=== PATIENT | female | born 1945 | race Caucasian/White ===

== ENCOUNTER → 2016-07-29 | Outpatient (CLI) | payer MEDICARE, OTHER ==
--- NOTE | 2016-07-29 11:30 | XR ---
EXAM TYPE: LUMBAR SPINE X RAY SERIES COMPARISON: NONE HISTORY: Pain FINDINGS: Alignment is anatomic. The pedicles are intact. The transverse processes are intact. There is jac re degenerative disc disease with vacuum disc L5-S1. Grade 1 anterolisthesis of L4 on L5 noted. Facet arthropathy seen. Remaining levels demonstrate maintenance of disc space and vertebral body height. IMPRESSION: 1. Grade 1 anterolisthesis L4-L5. 2. Severe degenerative disc disease L5-S1.
--- NOTE | 2016-07-29 11:32 | XR ---
EXAMINATION TYPE: XR pelvis AP view DATE OF EXAM: 07/29/2016 11:26 AM COMPARISON: NONE HISTORY: Pain The osseous structures are intact. No acute fracture is seen. Visualized bowel gas pattern is nonsp ecific. Calcifications in pelvis appear vascular. Osteitis pubis condensans noted. Hypertrophic sutherland ge and arthropathy of the hip joints noted. SI joints symmetric. IMPRESSION: 1. No acute fracture. 2. 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
--- NOTE | 2016-07-29 11:34 | XR ---
EXAMINATION TYPE: XR cervical spine limited DATE OF EXAM: 07/29/2016 11:27 AM COMPARISON: NONE HISTORY: Pain 3 views are submitted. The odontoid is intact. There are no compression deformities. The prevertebral soft tissue structur es are within normal limits. Hypertrophic changes are seen at all levels. Moderate to severe degener ative disc disease C5-6 and C6-C7 with posterior spondylosis and facet arthropathy. Alignment is only demonstrated level C7. Mild degenerative disc disease C2-C3 and C3-C4 with moderate changes at C4-C5 IMPRESSION: 1. Multilevel moderate to severe degenerative disc disease.
== END | disposition home or self-care (01) ==
LOC: RADXRMAIN 10:33
PROVIDERS: ATTEND Chiropractor
DX: M43.16 Spondylolisthesis, lumbar region (principal); M51.37 Other intervertebral disc degeneration, lumbosacral region; M50.30 Other cervical disc degeneration, unspecified cervical region; M16.0 Bilateral primary osteoarthritis of hip
CPT/HCPCS: 72040; 72100; 72170

== ENCOUNTER → 2016-10-08 | Outpatient (CLI) | payer MEDICARE, OTHER ==
--- NOTE | 2016-10-08 08:22 | CT ---
EXAMINATION TYPE: CT brain wo con DATE OF EXAM: 10/08/2016 7:22 AM HISTORY: Memory loss for one year. Cognitive impairment per order. CT DLP: 1054.2 mGycm. Automated Exposure Control for Dose Reduction was Utilized. TECHNIQUE: CT scan of the head is performed without contrast. COMPARISON: None. FINDINGS: There is no acute intracranial hemorrhage or midline shift identified. There is diffuse v entricular and sulcal prominence consistent with diffuse age-related cerebral atrophy. There is incr eased extra-axial CSF prominence over bilateral frontal lobes felt to reflect chronic subdural hygrom as or more likely asymmetric frontal lobe atrophy. There is low-attenuation in the periventricular wh ite matter consistent with chronic small vessel ischemic change. Neither lenses well seen. There is m ild to moderate mucosal thickening involving bilateral ethmoid sinuses. There is dependent air-fluid level in left sphenoid sinus. IMPRESSION: No acute intracranial hemorrhage or midline shift. There is mild diffuse age-related ce rebral atrophy and chronic small vessel ischemic change noted. Asymmetric more moderate bilateral fr ontal lobe atrophy is noted.
== END | disposition home or self-care (01) ==
LOC: RADCTMAIN 06:54
PROVIDERS: ATTEND Internal Medicine
DX: I67.82 Cerebral ischemia (principal); G31.9 Degenerative disease of nervous system, unspecified; R41.89 Other symptoms and signs involving cognitive functions and awareness
CPT/HCPCS: 70450

== ENCOUNTER → 2021-09-09 | Outpatient (CLI) | payer MEDICARE ==
--- NOTE | 2021-09-09 19:36 | BD ---
EXAMINATION TYPE: Axial Bone Density DATE OF EXAM: 09/09/2021 COMPARISON: 12/04/2008 CLINICAL HISTORY: 75 years year old Female. ICD-10 CODE: M89.9 BONE DISORDER Height: 64.5 IN Weight: 236 LBS FRAX RISK QUESTIONS: Secondary Osteoporosis: 3. Menopause before 45: PARTIAL HYST AGE 37 RISK FACTORS HISTORY OF: Active: YES Diet low in dairy products/other sources of calcium: YES Postmenopausal woman: PARTIAL HYST AGE 37 MEDICATIONS: Additional Medications: CHOLESTEROL MEDS, BLOOD PRESSURE MEDS, POTASSIUM, WATER PILL, EXAM MEASUREMENTS: Bone mineral densitometry was performed using the NUVETA System. Bone mineral density as measured about the Lumbar spine is: ----- L1-L4(G/cm2): 1.235 T Score Values are as follows: ----- L1: -0.7 ----- L2: 0.3 ----- L3: 1.4 ----- L4: 0.6 ----- L1-L4: 0.5 Bone mineral density has: Increased 16.1% since study of: 12/04/2008 Bone mineral density about the R hip (g/cm2): 1.008 Bone mineral density about the L hip (g/cm2): 0.991 T Score values are as follows: -----R Neck: -0.2 -----L Neck: -0.3 -----R Total: 0.7 -----L Total: 0.9 Bone mineral density has: Decreased -8.9% since study of: 12/04/2008 FRAX%s: The graph provided illustrates a 7.2 chance for a major osteoporotic fx and a 0.9 chance for the hips probability for fx in 10 years time. IMPRESSION: Normal (Values between +1 and -1 indicate normal bone mass). Consider repeating this study in 5 year s or sooner if there is some new clinical indication. NOTE: T-SCORE=SD OF THE YOUNG ADULT MEAN.
--- NOTE | 2021-09-11 09:18 | MM ---
Reason for exam: screening (asymptomatic). Last mammogram was performed 4 years and 3 months ago. History: Patient is postmenopausal and had first child at age 33. Family history of breast cancer in aunt at age 70. Benign left mammotome panel of the left breast, July 11, 2013. Benign excisional biopsy of the left breast. Benign excisional biopsy of the right breast. Took estrogen for 3 years beginning at age 52. Physical Findings: A clinical breast exam by your physician is recommended on an annual basis and results should be correlated with mammographic findings. MG 3D Screening Mammo W/Cad Bilateral CC and MLO view(s) were taken. Prior study comparison: May 28, 2017, bilateral MG 3d diag mammo w/cad VAN. July 04, 2014, bilateral MG screening mammo w CAD. There are scattered fibroglandular densities. No significant changes when compared with prior studies. ASSESSMENT: Benign, BI-RAD 2 RECOMMENDATION: Routine screening mammogram of both breasts in 1 year.
== END | disposition home or self-care (01) ==
LOC: RADMAMWWP 09:51
PROVIDERS: ATTEND Internal Medicine
DX: Z12.31 Encounter for screening mammogram for malignant neoplasm of breast (principal); M89.9 Disorder of bone, unspecified
CPT/HCPCS: 77063; 77067; 77080

== ENCOUNTER → 2021-12-26 | Outpatient (CLI) | payer MEDICARE ==
--- NOTE | 2021-12-26 15:10 | XR ---
EXAMINATION TYPE: XR chest 2V DATE OF EXAM: 12/26/2021 COMPARISON: Chest x-ray 01/09/2015 HISTORY: R05.9 TECHNIQUE: Frontal and lateral views of the chest are obtained. FINDINGS: There is no focal air space opacity, pleural effusion, or pneumothorax seen. The cardiac silhouette size is within normal limits accounting for rotation, expiratory exam. The osseous struc tures are remarkable for post shoulder arthroplasty on the right, there is thoracic spondylosis, gray ent may be rotated. There are overlying artifacts. IMPRESSION: No acute cardiopulmonary process.
== END | disposition home or self-care (01) ==
LOC: RADXRMAIN 13:43
PROVIDERS: ATTEND Internal Medicine
DX: R05.9 Cough, unspecified (principal)
CPT/HCPCS: 71046

== ENCOUNTER → 2022-01-24 | Outpatient (CLI) | payer MEDICARE ==
--- NOTE | 2022-01-26 10:49 | CA ---
Transthoracic Echo Report Name: Nazia Lawler Age: 76 Gender: F : 1945 Exam Date: 01/24/2022 11:47 Exam Location: [place] [facility] Ht (in): 65 Wt (lb): 280 Ordering Physician: Andree Woodson MD Attending/Referring Phys: Physical Meteorologist Debra Li RDCS Procedure CPT: Indications: R60.0 lower extremity edema Cardiac Hx: Pt Has Dementia Technical Quality: Fair Contrast 1: Total Dose (mL): Contrast 2: Total Dose (mL): MEASUREMENTS (Male / Female) Normal Values 2D ECHO LV Diastolic Diameter PLAX 5.1 cm 4.2 - 5.9 / 3.9 - 5.3 cm LV Systolic Diameter PLAX 3.2 cm IVS Diastolic Thickness 1.0 cm 0.6 - 1.0 / 0.6 - 0.9 cm LVPW Diastolic Thickness 1.8 cm 0.6 - 1.0 / 0.6 - 0.9 cm LV Relative Wall Thickness 0.5 RV Internal Dim ED PLAX 2.9 cm M-MODE Aortic Root Diameter MM 3.0 cm LA Systolic Diameter MM 3.9 cm LA Ao Ratio MM 1.3 MV E Point Septal Separation 0.4 cm AV Cusp Separation MM 1.8 cm DOPPLER TR Peak Velocity 163.8 cm/s TR Peak Gradient 10.7 mmHg Right Ventricular Systolic Press 15.7 mmHg FINDINGS Left Ventricle Left ventricular ejection fraction is estimated at 50-55%. Mildly increased left ventricular wall thickness. Right Ventricle Normal right ventricular size and function. Right Atrium Normal right atrial size. Left Atrium Normal left atrial size. Mitral Valve Structurally normal mitral valve. Aortic Valve Aortic valve not well visualized. Tricuspid Valve Tricuspid valve not well visualized. Pulmonic Valve Pulmonic valve not well visualized. Pericardium Echo free space anterior to the right ventricle likely represents a fat pad. Aorta Aortic root and proximal ascending aorta not well visualized. CONCLUSIONS Technically very difficult study for interpretation. Probably normal left ventricular systolic function Poorly visualized intracardiac valves Previewed by: Dr. Damon Smiley MD (Electronically Signed) Final Date: 26 January 2022 10:48
== END | disposition home or self-care (01) ==
LOC: RADECHMAIN 11:34
PROVIDERS: ATTEND Internal Medicine
DX: R60.0 Localized edema (principal)
CPT/HCPCS: 93306

== ENCOUNTER 2022-03-14 13:17 | Emergency (ER) | payer MEDICARE ==
[2022-03-14 14:18] VITALS: BP 136/86; PULSE 71; RESP 18; TEMP 98
--- NOTE | 2022-03-14 14:49 | XR ---
EXAMINATION TYPE: XR chest 2V DATE OF EXAM: 03/14/2022 COMPARISON: Chest x-ray 12/26/2021 HISTORY: Congestion, cough TECHNIQUE: Frontal and lateral views of the chest are obtained. FINDINGS: There is no focal air space opacity, pleural effusion, or pneumothorax seen. The cardiac silhouette size is within normal limits. The osseous structures are stable, postop change noted to the right shoulder status post shoulder arthroplasty. The aorta is dense. There is eventration of the right hemidiaphragm. There are overlying artifacts. IMPRESSION: No acute cardiopulmonary process.
[2022-03-14] MEDS ORDERED: AZITHROMYCIN 500 MG TAB PO STA (17:06)
--- NOTE | 2022-03-14 17:10 | ED ---
URI HPI - General Chief Complaint: Upper Respiratory Infection Stated Complaint: Congestion Time Seen by Provider: 03/14/22 16:44 Source: patient Mode of arrival: ambulatory Limitations: altered mental status - History of Present Illness Initial Comments: Patient is a 76-year-old female with a past medical history of late stage dementia resents to the emergency department with a chief complaint of productive cough. helps provide history. States patient has had a productive cough for the past 2 weeks which has not gotten better. Sputum color unknown. Triage note reports congestion however and patient deny congestion. Patient has had intermittent fevers. Denies chest pain and shortness of breath. - Related Data Home Medications Medication Instructions Recorded Confirmed Amlodipine Besylate/Valsartan 1 each PO DAILY 06/28/14 01/09/15 [Exforge 5-160 mg Tablet] Atorvastatin [Lipitor] 40 mg PO HS 06/28/14 01/09/15 Celecoxib [CeleBREX] 200 mg PO BID 06/28/14 01/09/15 Cevimeline HCl [Evoxac] 30 mg PO TID 06/28/14 01/09/15 Esomeprazole Magnesium [NexIUM] 40 mg PO DAILY 06/28/14 01/09/15 Multivitamins, Thera [Multivitamin] 1 each PO DAILY 06/28/14 01/09/15 allopurinoL [Zyloprim] 300 mg PO DAILY 06/28/14 01/09/15 traMADol-ACETAMINOP 37.5-325MG 2 each PO Q4-6H PRN 06/28/14 01/09/15 [Ultracet] ALPRAZolam [Xanax] 0.25 mg PO TID PRN 01/09/15 01/09/15 Previous Rx's Medication Instructions Recorded Azithromycin [Zithromax Z Pack] 1 tab PO DIRECTED #6 tab 03/14/22 methylPREDNISolone Dose Pack 4 mg PO DIRECTED #21 tab 03/14/22 [Medrol Dose Pack] Allergies Allergy/AdvReac Type Severity Reaction Status Date / Time No Known Allergies Allergy Verified 03/14/22 14:18 Review of Systems ROS Statement: Those systems with pertinent positive or pertinent negative responses have been documented in the HPI. ROS Other: All systems not noted in ROS Statement are negative. Past Medical History Past Medical History: Dementia, GERD/Reflux, Hypertension, Pneumonia, Sleep Apnea/CPAP/BIPAP Additional Past Medical History / Comment(s): hx migraines,sjogrens,hx pneumonia, hx kidney stones History of Any Multi-Drug Resistant Organisms: None Reported Past Surgical History: Section, Cholecystectomy, Hysterectomy, Joint Replacement Additional Past Surgical History / Comment(s): ariana knee and rt shoulder replacement, cataracts, surgery on left thumb and wrist, Past Anesthesia/Blood Transfusion Reactions: Previous Problems w/ Anesthesia Additional Past Anesthesia/Blood Transfusion Reaction / Comment(s): "almost aspirated" Past Psychological History: Anxiety Past Alcohol Use History: None Reported Past Drug Use History: None Reported - Past Family History Father Family Medical History: Cancer Additional Family Medical History / Comment(s): colon cancer General Exam Limitations: altered mental status General appearance: alert, in no apparent distress Head exam: Present: atraumatic, normocephalic, normal inspection Eye exam: Present: normal appearance, PERRL, EOMI. Absent: scleral icterus, conjunctival injection, periorbital swelling ENT exam: Present: normal oropharynx Neck exam: Present: normal inspection, full ROM Respiratory exam: Present: normal lung sounds bilaterally. Absent: respiratory distress, wheezes, rales, rhonchi, stridor, chest wall tenderness, accessory muscle use, decreased breath sounds, prolonged expiratory Cardiovascular Exam: Present: regular rate, normal rhythm, normal heart sounds. Absent: systolic murmur, diastolic murmur, rubs, gallop, clicks Neurological exam: Present: alert, oriented X3, CN II-XII intact Psychiatric exam: Present: normal affect, normal mood Skin exam: Present: warm, dry, intact, normal color. Absent: rash Course Vital Signs 03/14/22 14:15 Temperature 98.0 F Pulse Rate 71 Respiratory 18 Rate Blood Pressure 136/86 O2 Sat by Pulse 96 Oximetry Medical Decision Making - Medical Decision Making This is a 76-year-old female who presents with productive cough. Vitals within normal limits. There is no hypoxia. Patient well-appearing. Lungs clear to auscultation bilaterally. Patient coughed several times during evaluation. Cough is productive. This is likely acute bronchitis of bacterial origin. Covid 19 and influenza are not detected. Patient will be discharged with Z-Igor and Medrol Dosepak. Strict return parameters discussed. Dr. Cannon is my attending. - Lab Data Lab Results 03/14/22 03/14/22 Range/Units 17:07 17:07 Coronavirus (PCR) Not Detected (Not Detectd) Influenza Type A RNA Not Detected (Not Detectd) Influenza Type B (PCR) Not Detected (Not Detectd) Disposition Clinical Impression: Acute bronchitis Disposition: HOME SELF-CARE Condition: Good Instructions (If sedation given, give patient instructions): Upper Respiratory Infection (ED), Acute Bronchitis (ED) Additional Instructions: Please take medication as directed. The antibiotic azithromycin will be started tomorrow. Please start the Medrol Dosepak today. Warm fluids, humidifiers, and hot showers or baths will help break mucus down. Follow-up with primary care provider in one to 2 days. Return to the emergency department if you experience new, concerning, or worsening symptoms. Prescriptions: methylPREDNISolone Dose Pack [Medrol Dose Pack] 4 mg PO DIRECTED #21 tab Azithromycin [Zithromax Z Pack] 1 tab PO DIRECTED #6 tab Is patient prescribed a controlled substance at d/c from ED?: No Referrals: None,Stated [Primary Care Provider] - 1-2 days Time of Disposition: 17:10
== END 2022-03-14 17:45 | disposition home or self-care (01) ==
LOC: EC 13:17
DX: J20.9 Acute bronchitis, unspecified (principal); K21.9 Gastro-esophageal reflux disease without esophagitis; I10 Essential (primary) hypertension; F41.9 Anxiety disorder, unspecified; Z79.899 Other long term (current) drug therapy; Z20.822 Contact with and (suspected) exposure to COVID-19
CPT/HCPCS: 71046; 87502; 87635; 99285

== ENCOUNTER → 2023-06-03 | Outpatient (CLI) | payer MEDICARE ==
--- NOTE | 2023-06-04 10:17 | CA ---
Transthoracic Echo Report Name: Nazia Lawler Age: 77 Gender: F : 1945 Exam Date: 06/03/2023 14:47 Exam Location: [place] [facility] Ht (in): 65 Wt (lb): 260 Ordering Physician: Erik Barahona MD Attending/Referring Phys: Erik Barahona MD Manager Corporate Strategy Tamra Ely [facility] Procedure CPT: Indications: R60.0 LOCALIZED EDEMA Cardiac Hx: Technical Quality: Very technically difficult study Contrast 1: Definity Total Dose (mL): 6 Contrast 2: Total Dose (mL): MEASUREMENTS (Male / Female) Normal Values 2D ECHO LV Diastolic Diameter PLAX 4.5 cm 4.2 - 5.9 / 3.9 - 5.3 cm LV Systolic Diameter PLAX 3.1 cm IVS Diastolic Thickness 1.0 cm 0.6 - 1.0 / 0.6 - 0.9 cm LVPW Diastolic Thickness 1.1 cm 0.6 - 1.0 / 0.6 - 0.9 cm LV Relative Wall Thickness 0.5 LVOT Diameter 2.0 cm Ascending Aorta Diameter 3.4 cm M-MODE Aortic Root Diameter MM 2.8 cm LA Systolic Diameter MM 3.8 cm LA Ao Ratio MM 1.4 AV Cusp Separation MM 1.9 cm DOPPLER AV Peak Velocity 156.0 cm/s AV Peak Gradient 9.7 mmHg AV Mean Velocity 106.6 cm/s AV Mean Gradient 5.1 mmHg AV Velocity Time Integral 30.0 cm LVOT Peak Velocity 105.0 cm/s LVOT Peak Gradient 4.4 mmHg LVOT Velocity Time Integral 22.3 cm LVOT Stroke Volume 72.3 cm??? LVOT Stroke Volume Index 32.7 ml/m??? LVOT Cardiac Index 1936.2 cm???/min???m??? AV Area Cont Eq vti 2.4 cm??? AV Area Cont Eq pk 2.2 cm??? MV Area PHT 2.3 cm??? Mitral E Point Velocity 56.7 cm/s Mitral A Point Velocity 109.6 cm/s Mitral E to A Ratio 0.5 MV Deceleration Time 323.7 ms LV E' Lateral Velocity 8.9 cm/s Mitral E to LV E' Lateral Ratio 6.3 LV E' Septal Velocity 6.1 cm/s Mitral E to LV E' Septal Ratio 9.2 Right Atrial Pressure 8.0 mmHg FINDINGS Left Ventricle Mildly increased left ventricular wall thickness. Left ventricular cavity size normal. Normal left ventricular systolic function with no obvious regional wall motion abnormalities. Left ventricular ejection fraction is estimated at 55- 60%. Right Ventricle Right ventricle not well visualized. Right Atrium Right atrium not well visualized. Left Atrium Left atrium not well visualized. Mitral Valve Mitral valve not well visualized. Mitral valve thickened. Aortic Valve Aortic valve not well visualized. Trileaflet aortic valve. Diffuse thickening (sclerosis) of the aortic valve cusps without reduced excursion. Tricuspid Valve Tricuspid valve not well visualized. Pulmonic Valve Pulmonic valve not well visualized. Pericardium No pericardial effusion. Echo free space anterior to the right ventricle likely represents a fat pad. Aorta Normal size aortic root and proximal ascending aorta. CONCLUSIONS Very technically difficult study. Left ventricular ejection fraction is estimated at 55-60%. No obvious regional wall motion abnormalities. Mild concentric LVH next and grade 1 diastolic dysfunction Aortic sclerosis with no stenosis Epicardial fat Previewed by: Dr Ryan Yoon (Electronically Signed) Final Date: 04 June 2023 10:16
== END | disposition home or self-care (01) ==
LOC: RADECHMAIN 14:21
PROVIDERS: ATTEND Internal Medicine
DX: R60.0 Localized edema (principal); I35.8 Other nonrheumatic aortic valve disorders; I51.89 Other ill-defined heart diseases; I51.7 Cardiomegaly
CPT/HCPCS: C8929; Q9957; 93306

== ENCOUNTER 2023-07-29 01:05 | Emergency (ER) | payer MEDICARE ==
[2023-07-29 01:24] VITALS: RESP 16; TEMP 98.3
--- NOTE | 2023-07-29 03:05 | ED ---
Fall HPI - General Chief Complaint: Fall Stated Complaint: Fall Time Seen by Provider: 07/29/23 02:21 Source: EMS Mode of arrival: EMS - History of Present Illness Initial Comments: 77-year-old female with a past medical history significant for dementia presenting to the ED with a chief complaint of fall. Per staff at [facility], patient was going to the bathroom and she was guided down during a fall. There is no head injury at this time. Patient is not on blood thinners. Patiently has no complaints of pain. No other complaints at this time. - Related Data Home Medications Medication Instructions Recorded Confirmed Amlodipine Besylate/Valsartan 1 each PO DAILY 06/28/14 01/09/15 [Exforge 5-160 mg Tablet] Atorvastatin [Lipitor] 40 mg PO HS 06/28/14 01/09/15 Celecoxib [CeleBREX] 200 mg PO BID 06/28/14 01/09/15 Cevimeline HCl [Evoxac] 30 mg PO TID 06/28/14 01/09/15 Esomeprazole Magnesium [NexIUM] 40 mg PO DAILY 06/28/14 01/09/15 Multivitamins, Thera [Multivitamin] 1 each PO DAILY 06/28/14 01/09/15 allopurinoL [Zyloprim] 300 mg PO DAILY 06/28/14 01/09/15 traMADol-ACETAMINOP 37.5-325MG 2 each PO Q4-6H PRN 06/28/14 01/09/15 [Ultracet] ALPRAZolam [Xanax] 0.25 mg PO TID PRN 01/09/15 01/09/15 Previous Rx's Medication Instructions Recorded Azithromycin [Zithromax Z Pack] 1 tab PO DIRECTED #6 tab 03/14/22 methylPREDNISolone Dose Pack 4 mg PO DIRECTED #21 tab 03/14/22 [Medrol Dose Pack] Allergies Allergy/AdvReac Type Severity Reaction Status Date / Time No Known Allergies Allergy Verified 07/29/23 01:18 Review of Systems ROS Statement: Those systems with pertinent positive or pertinent negative responses have been documented in the HPI. ROS Other: All systems not noted in ROS Statement are negative. Past Medical History Past Medical History: Dementia, GERD/Reflux, Hypertension, Pneumonia, Sleep Apnea/CPAP/BIPAP Additional Past Medical History / Comment(s): hx migraines,sjogrens,hx pneumonia, hx kidney stones History of Any Multi-Drug Resistant Organisms: None Reported Past Surgical History: Section, Cholecystectomy, Hysterectomy, Joint Replacement Additional Past Surgical History / Comment(s): ariana knee and rt shoulder replacement, cataracts, surgery on left thumb and wrist, Past Anesthesia/Blood Transfusion Reactions: Previous Problems w/ Anesthesia Additional Past Anesthesia/Blood Transfusion Reaction / Comment(s): "almost aspirated" Past Psychological History: Anxiety Smoking Status: Unknown if ever smoked Past Alcohol Use History: None Reported Past Drug Use History: None Reported - Past Family History Father Family Medical History: Cancer Additional Family Medical History / Comment(s): colon cancer General Exam Limitations: no limitations General appearance: alert, in no apparent distress Head exam: Present: other (No jones signs or raccoon's eyes. No other outward evidence of trauma.) Eye exam: Present: normal appearance Neck exam: Present: normal inspection Respiratory exam: Present: normal lung sounds bilaterally Cardiovascular Exam: Present: regular rate, normal rhythm GI/Abdominal exam: Present: soft Extremities exam: Present: other (Full passive range of motion of bilateral upper and lower extremities. Palpation of bilateral upper and lower extremities shows no crepitus, step-off, or tenderness to palpation. Hips stable upon rocking.) Back exam: Present: other (No midline thoracic, cervical, lumbar spinal tenderness to palpation.) Neurological exam: Present: alert Skin exam: Present: warm, dry Course Vital Signs 07/29/23 07/29/23 07/29/23 01:13 01:20 01:40 Temperature 98.3 F Pulse Rate 59 L 60 57 L Respiratory 16 16 16 Rate Blood Pressure 110/73 110/73 109/64 O2 Sat by Pulse 96 96 97 Oximetry Medical Decision Making - Medical Decision Making Was pt. sent in by a medical professional or institution (, PA, VECTOR CONTROL ASSISTANT, urgent care, hospital, or detention...) When possible be specific @ -[facility] Did you speak to anyone other than the patient for history (EMS, parent, family, police, friend...)? What history was obtained from this source @ -Spoke to nurse who relayed history from EMS who relayed the history provided by [facility] staff. For further details please see HPI. Did you review nursing and triage notes (agree or disagree)? Why? @ -I reviewed and agree with nursing and triage notes Were old charts reviewed (outside hosp., previous admission, EMS record, old EKG, old radiological studies, urgent care reports/EKG's, detention records)? Report findings @ -No old charts were reviewed Differential Diagnosis (chest pain, altered mental status, abdominal pain women, abdominal pain men, vaginal bleeding, weakness, fever, dyspnea, syncope, headache, dizziness, GI bleed, back pain, seizure, CVA, palpatations, mental health, musculoskeletal)? @ -Differential Musculoskeletal Muscular strain, contusion, ligament sprain, fracture, arthritis, septic arthritis, bursitis, cellulitis, muscle spasm, nerve compression, DVT, arterial occlusion, herpes zoster, electrolyte abnormality, tumor.... This is not meant to be in all inclusive list EKG interpreted by me (3pts min.). @ -None X-rays interpreted by me (1pt min.). @ -None done CT interpreted by me (1pt min.). @ -None done U/S interpreted by me (1pt. min.). @ -None done What testing was considered but not performed or refused? (CT, X-rays, U/S, labs)? Why? @ -None What meds were considered but not given or refused? Why? @ -None Did you discuss the management of the patient with other professionals (pr ofessionals i.e. , PA, VECTOR CONTROL ASSISTANT, lab, RT, psych nurse, medical social consultant, news operations manager, teacher, special weapons and tactics officer, case resolution specialist)? Give summary @ -No Was smoking cessation discussed for >3mins.? @ -No Was critical care preformed (if so, how long)? @ -No Were there social determinants of health that impacted care today? How? (Homelessness, low income, unemployed, alcoholism, drug addiction, transportation, low edu. Level, literacy, decrease access to med. care, half-way, rehab)? @ -No Was there de-escalation of care discussed even if they declined (Discuss DNR or withdrawal of care, Hospice)? DNR status @ -No What co-morbidities impacted this encounter? (DM, HTN, Smoking, COPD, CAD, Cancer, CVA, ARF, Chemo, Hep., AIDS, mental health diagnosis, sleep apnea, morbid obesity)? @ -Dementia Was patient admitted / discharged? Hospital course, mention meds given and route, prescriptions, significant lab abnormalities, going to OR and other pertinent info. @ -Discharge 77-year-old female sent by [facility] secondary to a fall in which she was guided down. There is no head injury at this time. Patient is not on blood thinners. Exam showed full passive range of motion of bilateral upper and lower extremities. There is no tenderness, crepitus, step-off upon palpation. No midline cervical, thoracic, lumbar spinal tenderness to palpation. Head showed no jones signs or raccoon's eyes. Patient currently has no complaints. No evidence of trauma on examination. Patient discharged home in stable condition. Discussed return precautions with patient's who verbalized agreement. Undiagnosed new problem with uncertain prognosis? @ -No Drug Therapy requiring intensive monitoring for toxicity (Heparin, Nitro, Insulin, Cardizem)? @ -No Were any procedures done? @ -No Diagnosis/symptom? @ -Status post fall Acute, or Chronic, or Acute on Chronic? @ -Acute Uncomplicated (without systemic symptoms) or Complicated (systemic symptoms)? @ -Uncomplicated Side effects of treatment? @ -No Exacerbation, Progression, or Severe Exacerbation? @ -No Poses a threat to life or bodily function? How? (Chest pain, [place], [place], pneumonia, PE, COPD, DKA, ARF, appy, cholecystitis, CVA, Diverticulitis, Homicidal, Suicidal, threat to staff... and all critical care pts) @ -No Disposition Clinical Impression: Fall Disposition: HOME SELF-CARE Condition: Good Instructions (If sedation given, give patient instructions): Fall Prevention for Older Adults (ED) Additional Instructions: Please return to the Emergency Department if symptoms worsen or any other concerns. Is patient prescribed a controlled substance at d/c from ED?: No Referrals: Erik Barahona DO [Primary Care Provider] - 1-2 days Time of Disposition: 03:10
[2023-07-29 03:15] VITALS: BP 126/64; PULSE 58
== END 2023-07-29 03:32 | disposition home or self-care (01) ==
LOC: EC 01:05
DX: Z04.3 Encounter for examination and observation following other accident (principal); K21.9 Gastro-esophageal reflux disease without esophagitis; I10 Essential (primary) hypertension; G47.30 Sleep apnea, unspecified; F41.9 Anxiety disorder, unspecified; Z79.899 Other long term (current) drug therapy; W18.30XA Fall on same level, unspecified, initial encounter
CPT/HCPCS: 99284

== ENCOUNTER 2023-08-20 00:40 | Emergency (ER) | payer MEDICARE ==
[2023-08-20 00:58] VITALS: RESP 18
--- NOTE | 2023-08-20 01:25 | ED ---
Fall HPI - General Chief Complaint: Fall Stated Complaint: Fall Time Seen by Provider: 08/20/23 00:52 Source: EMS, old records reviewed Mode of arrival: EMS - History of Present Illness Initial Comments: 77-year-old female with a past medical history significant for dementia presenting to the ED status post fall. Patient normally has difficulties ambulating and normally is able to do so with assistance. Tonight, fell forward after losing her balance and hit her head apparently on a wooden table. There is no LOC. Patient not on blood thinners. No other injuries at this time. Patient reports no other complaints herself at this time. However history limited as patient does have a history of dementia. - Related Data Home Medications Medication Instructions Recorded Confirmed Amlodipine Besylate/Valsartan 1 each PO DAILY 06/28/14 01/09/15 [Exforge 5-160 mg Tablet] Atorvastatin [Lipitor] 40 mg PO HS 06/28/14 01/09/15 Celecoxib [CeleBREX] 200 mg PO BID 06/28/14 01/09/15 Cevimeline HCl [Evoxac] 30 mg PO TID 06/28/14 01/09/15 Esomeprazole Magnesium [NexIUM] 40 mg PO DAILY 06/28/14 01/09/15 Multivitamins, Thera [Multivitamin] 1 each PO DAILY 06/28/14 01/09/15 allopurinoL [Zyloprim] 300 mg PO DAILY 06/28/14 01/09/15 traMADol-ACETAMINOP 37.5-325MG 2 each PO Q4-6H PRN 06/28/14 01/09/15 [Ultracet] ALPRAZolam [Xanax] 0.25 mg PO TID PRN 01/09/15 01/09/15 Previous Rx's Medication Instructions Recorded Azithromycin [Zithromax Z Pack] 1 tab PO DIRECTED #6 tab 03/14/22 methylPREDNISolone Dose Pack 4 mg PO DIRECTED #21 tab 03/14/22 [Medrol Dose Pack] Allergies Allergy/AdvReac Type Severity Reaction Status Date / Time No Known Allergies Allergy Verified 08/20/23 00:45 Review of Systems ROS Statement: Those systems with pertinent positive or pertinent negative responses have been documented in the HPI. ROS Other: All systems not noted in ROS Statement are negative. Past Medical History Past Medical History: Dementia, GERD/Reflux, Hypertension, Pneumonia, Sleep Apnea/CPAP/BIPAP Additional Past Medical History / Comment(s): hx migraines,sjogrens,hx pneumonia, hx kidney stones History of Any Multi-Drug Resistant Organisms: None Reported Past Surgical History: Section, Cholecystectomy, Hysterectomy, Joint Replacement Additional Past Surgical History / Comment(s): ariana knee and rt shoulder replacement, cataracts, surgery on left thumb and wrist, Past Anesthesia/Blood Transfusion Reactions: Previous Problems w/ Anesthesia Additional Past Anesthesia/Blood Transfusion Reaction / Comment(s): "almost aspirated" Past Psychological History: Anxiety Smoking Status: Unknown if ever smoked Past Alcohol Use History: None Reported Past Drug Use History: None Reported - Past Family History Father Family Medical History: Cancer Additional Family Medical History / Comment(s): colon cancer General Exam General appearance: alert, in no apparent distress Eye exam: Present: normal appearance, PERRL, EOMI Neck exam: Present: normal inspection Respiratory exam: Present: normal lung sounds bilaterally Cardiovascular Exam: Present: regular rate, normal rhythm GI/Abdominal exam: Present: soft Extremities exam: Present: other (Full passive range of motion of bilateral upper lower extremities without pain. DP/PT pulses 2+. Radial pulses 2+.) Back exam: Present: other (No midline cervical, thoracic, lumbar spinal tenderness to palpation.) Neurological exam: Present: alert Skin exam: Present: warm, dry Course Vital Signs 08/20/23 08/20/23 00:41 01:47 Temperature 97.5 F L Pulse Rate 66 56 L Respiratory 18 18 Rate Blood Pressure 114/86 121/79 O2 Sat by Pulse 96 97 Oximetry Medical Decision Making - Medical Decision Making Was pt. sent in by a medical professional or institution (, PA, BAR POINTER, urgent care, hospital, or assisted...) When possible be specific @ -[facility] Did you speak to anyone other than the patient for history (EMS, parent, family, police, friend...)? What history was obtained from this source @ -Spoke to nurse here in the ED who reported parts of history gathered by EMS. For further details please see HPI. Did you review nursing and triage notes (agree or disagree)? Why? @ -I reviewed and agree with nursing and triage notes Were old charts reviewed (outside hosp., previous admission, EMS record, old EKG, old radiological studies, urgent care reports/EKG's, assisted records)? Report findings @ -No old charts were reviewed Differential Diagnosis (chest pain, altered mental status, abdominal pain women, abdominal pain men, vaginal bleeding, weakness, fever, dyspnea, syncope, headac he, dizziness, GI bleed, back pain, seizure, CVA, palpatations, mental health, musculoskeletal)? @ -Differential Musculoskeletal Muscular strain, contusion, ligament sprain, fracture, arthritis, septic arthritis, bursitis, cellulitis, muscle spasm, nerve compression, DVT, arterial occlusion, herpes zoster, electrolyte abnormality, tumor.... This is not meant to be in all inclusive list EKG interpreted by me (3pts min.). @ -EKG interpreted me showing a sinus rhythm at [address] and T wave changes. TN 190, QRS 93, QT/QTc 316/297. X-rays interpreted by me (1pt min.). @ -None done CT interpreted by me (1pt min.). @ -CT brain and cervical spine interpreted by me showing no evidence of acute finding. U/S interpreted by me (1pt. min.). @ -None done What testing was considered but not performed or refused? (CT, X-rays, U/S, labs)? Why? @ -None What meds were considered but not given or refused? Why? @ -None Did you discuss the management of the patient with other professionals (professionals i.e. , PA, BAR POINTER, lab, RT, psych nurse, social media campaign manager, auction assistant, teacher, principal gifts officer, case picker)? Give summary @ -No Was smoking cessation discussed for >3mins.? @ -No Was critical care preformed (if so, how long)? @ -No Were there social determinants of health that impacted care today? How? (Homelessness, low income, unemployed, alcoholism, drug addiction, transportation, low edu. Level, literacy, decrease access to med. care, correction, rehab)? @ -No Was there de-escalation of care discussed even if they declined (Discuss DNR or withdrawal of care, Hospice)? DNR status @ -No What co-morbidities impacted this encounter? (DM, HTN, Smoking, COPD, CAD, Cancer, CVA, ARF, Chemo, Hep., AIDS, mental health diagnosis, sleep apnea, morbid obesity)? @ -Dementia Was patient admitted / discharged? Hospital course, mention meds given and route, prescriptions, significant lab abnormalities, going to OR and other pertinent info. @ -Discharge 77-year-old female presenting to the ED status post mechanical fall with head injury. CT brain and cervical spine at this time revealed no evidence of acute finding. Examination of bilateral upper and lower extremity showed no other areas of injury and at this time patient has no complaints. Patient discharged home in stable condition. Discussed return precautions with patient's who verbalized agreement. Undiagnosed new problem with uncertain prognosis? @ -No Drug Therapy requiring intensive monitoring for toxicity (Heparin, Nitro, Insulin, Cardizem)? @ -No Were any procedures done? @ -No Diagnosis/symptom? @ -Mechanical fall, head injury Acute, or Chronic, or Acute on Chronic? @ -Acute Uncomplicated (without systemic symptoms) or Complicated (systemic symptoms)? @ -Uncomplicated Side effects of treatment? @ -No Exacerbation, Progression, or Severe Exacerbation? @ -No Poses a threat to life or bodily function? How? (Chest pain, [place], [place], pneumonia, PE, COPD, DKA, ARF, appy, cholecystitis, CVA, Diverticulitis, Homicidal, Suicidal, threat to staff... and all critical care pts) @ -No Disposition Clinical Impression: Fall Disposition: HOME SELF-CARE Condition: Good Instructions (If sedation given, give patient instructions): Fall Prevention for Older Adults (ED) Additional Instructions: Please return to the Emergency Department if symptoms worsen or any other concerns. Please follow up with your PCP. Is patient prescribed a controlled substance at d/c from ED?: No Referrals: Erik Barahona DO [Primary Care Provider] - 1-2 days Time of Disposition: 01:59
--- NOTE | 2023-08-20 01:42 | CT ---
EXAM: CT Head Without Intravenous Contrast CLINICAL HISTORY: ITS.REASON CT Reason: s/p fall TECHNIQUE: Axial computed tomography images of the head/brain without intravenous contrast. CTDI is 45.2 mGy and DLP is 1058 mGy-cm. This CT exam was performed using one or more of the following dose reduction techniques: automated exposure control, adjustment of the mA and/or kV according to patient size, and/or use of iterative reconstruction technique. COMPARISON: 2017 FINDINGS: Brain: No hemorrhage or mass effect. Ventricles: No hydrocephalus. Bones/joints: Unremarkable. Soft tissues: Unremarkable. Sinuses: No air fluid level. Mastoid air cells: Clear. IMPRESSION: No acute hemorrhage, hydrocephalus, or mass effect. EXAM: CT Cervical Spine Without Intravenous Contrast CLINICAL HISTORY: ITS.REASON CT Reason: s/p fall TECHNIQUE: Axial computed tomography images of the cervical spine without intravenous contrast. CTDI is 24.8 mGy and DLP is 659.9 mGy-cm. This CT exam was performed using one or more of the following dose reduction techniques: automated exposure control, adjustment of the mA and/or kV according to patient size, and/or use of iterative reconstruction technique. COMPARISON: No relevant prior studies available. FINDINGS: Vertebrae: No acute fracture. Discs/spinal canal/neural foramina: degenerative changes. Soft tissues: No prevertebral swelling. IMPRESSION: No acute fracture or subluxation.
[2023-08-20 02:06] VITALS: PULSE 56
[2023-08-20 03:06] VITALS: BP 113/67; TEMP 97.6
== END 2023-08-20 02:26 | disposition home or self-care (01) ==
LOC: EC 00:40
DX: S09.90XA Unspecified injury of head, initial encounter (principal); I10 Essential (primary) hypertension; K21.9 Gastro-esophageal reflux disease without esophagitis; G47.30 Sleep apnea, unspecified; F41.9 Anxiety disorder, unspecified; Z79.899 Other long term (current) drug therapy; W01.110A Fall on same level from slipping, tripping and stumbling with subsequent striking against sharp glass, initial encounter
CPT/HCPCS: 70450; 72125; 99285

== ENCOUNTER 2023-10-12 20:16 | Emergency (ER) | payer MEDICARE ==
--- NOTE | 2023-10-12 20:57 | ED ---
Abdominal Pain HPI - General Source: patient, family Mode of arrival: wheelchair Limitations: altered mental status <Luis Mulligan - Last Filed: 10/12/23 20:57> <Brian Reyes - Last Filed: 10/13/23 01:32> - General Chief Complaint: Abdominal Pain Stated Complaint: Alzheimers, Syncope - History of Present Illness Initial Comments: 77-year-old female presented to the ED with complaints of near syncope. Patient has history of dementia and history provided by the patient's . Patient lives at [facility]. Patient's seems to report that over the past week she has been pointing to her abdomen and having near syncopal episodes. (Luis Mulligan) Dictation was produced using [employer] dictation software. please excuse any grammatical, word or spelling errors. Chief Complaint: 77-year-old female presents with abdominal pain History of Present Illness: 77-year-old female presents emergency department for abdominal pain. Patient has history of Alzheimer's unable to write history of present illness. History present illness obtained from patient's at the bedside. States that he was with her earlier today gave her a brownie. Shortly after she started to complain of lower abdominal pain which she stated. Patient taking antidiarrhea medications. They thought that perhaps maybe she was having abdominal cramping secondary to this medication. Patient has not had any fever. Patient currently at baseline according to . The ROS documented in this emergency department record has been reviewed and confirmed by me. Those systems with pertinent positive or negative responses have been documented in the HPI. All other systems are other negative and/or noncontributory. (Brian Reyes) - Related Data Home Medications Medication Instructions Recorded Confirmed Amlodipine Besylate/Valsartan 1 each PO DAILY 06/28/14 01/09/15 [Exforge 5-160 mg Tablet] Atorvastatin [Lipitor] 40 mg PO HS 06/28/14 01/09/15 Celecoxib [CeleBREX] 200 mg PO BID 06/28/14 01/09/15 Cevimeline HCl [Evoxac] 30 mg PO TID 06/28/14 01/09/15 Esomeprazole Magnesium [NexIUM] 40 mg PO DAILY 06/28/14 01/09/15 Multivitamins, Thera [Multivitamin] 1 each PO DAILY 06/28/14 01/09/15 allopurinoL [Zyloprim] 300 mg PO DAILY 06/28/14 01/09/15 traMADol-ACETAMINOP 37.5-325MG 2 each PO Q4-6H PRN 06/28/14 01/09/15 [Ultracet] ALPRAZolam [Xanax] 0.25 mg PO TID PRN 01/09/15 01/09/15 Previous Rx's Medication Instructions Recorded Azithromycin [Zithromax Z Pack] 1 tab PO DIRECTED #6 tab 03/14/22 methylPREDNISolone Dose Pack 4 mg PO DIRECTED #21 tab 03/14/22 [Medrol Dose Pack] Allergies Allergy/AdvReac Type Severity Reaction Status Date / Time No Known Allergies Allergy Verified 08/20/23 00:45 Review of Systems ROS Other: All systems not noted in ROS Statement are negative. <Luis Mulligan - Last Filed: 10/12/23 20:57> ROS Other: All systems not noted in ROS Statement are negative. <Brian Reyes - Last Filed: 10/13/23 01:32> ROS Statement: Those systems with pertinent positive or pertinent negative responses have been documented in the HPI. Past Medical History Past Medical History: Dementia, GERD/Reflux, Hypertension, Pneumonia, Sleep Apnea/CPAP/BIPAP Additional Past Medical History / Comment(s): hx migraines,sjogrens,hx pneumonia, hx kidney stones History of Any Multi-Drug Resistant Organisms: None Reported Past Surgical History: Section, Cholecystectomy, Hysterectomy, Joint Replacement Additional Past Surgical History / Comment(s): ariana knee and rt shoulder replacement, cataracts, surgery on left thumb and wrist, Past Anesthesia/Blood Transfusion Reactions: Previous Problems w/ Anesthesia Additional Past Anesthesia/Blood Transfusion Reaction / Comment(s): "almost aspirated" Past Psychological History: Anxiety Smoking Status: Unknown if ever smoked Past Alcohol Use History: None Reported Past Drug Use History: None Reported - Past Family History Father Family Medical History: Cancer Additional Family Medical History / Comment(s): colon cancer <Luis Mulligan - Last Filed: 10/12/23 20:57> General Exam Limitations: altered mental status <Luis Mulligan - Last Filed: 10/12/23 20:57> <Brian Reyes - Last Filed: 10/13/23 01:32> - General Exam Comments Initial Comments: Visual Physical Exam Vital signs reviewed General: Well-appearing, nontoxic, no acute distress. Head: Normocephalic, atraumatic ENT: Airway patent Chest: Nonlabored breathing Skin: No visual rash, normal skin tone Musculoskeletal: No gross abnormalities (Luis Mulligan) PHYSICAL EXAM: General Impression: Alert and oriented, not in acute distress HEENT: Normocephalic atraumatic, extra-ocular movements intact, pupils equal and reactive to light bilaterally, mucous membranes moist. Cardiovascular: Heart regular rate and rhythm Chest: Able to complete full sentences, no retractions, no tachypnea Abdomen: abdomen soft, non-tender, non-distended, no organomegaly Musculoskeletal: Pulses present and equal in all extremities, no peripheral edema Motor: no focal deficits noted Neurological: CN II-XII grossly intact, no focal motor or sensory deficits noted Skin: Intact with no visualized rashes Psych: Normal affect and mood (Brian Reyes) Course Vital Signs 10/12/23 10/12/23 10/13/23 20:30 23:12 01:11 Temperature 98.2 F Pulse Rate 62 57 L 60 Respiratory 18 18 18 Rate Blood Pressure 114/77 144/82 108/54 O2 Sat by Pulse 98 95 96 Oximetry Medical Decision Making <Luis Mulligan - Last Filed: 10/12/23 20:57> - Lab Data Result diagrams: 10/12/23 20:50 10/12/23 20:50 <Brian Reyes - Last Filed: 10/13/23 01:32> - Medical Decision Making Quicknote portion performed. Signed Luis Mulligan PA-C (Luis Mulligan) Was pt. sent in by a medical professional or institution ([facility], [facility], urgent care, hospital, or prison...) When possible be specific @ -No Did you speak to anyone other than the patient for history (EMS, parent, family, police, friend...)? What history was obtained from this source @ -No Did you review nursing and triage notes (agree or disagree)? Why? @ -I reviewed and agree with nursing and triage notes Were old charts reviewed (outside hosp., previous admission, EMS record, old EKG, old radiological studies, urgent care reports/EKG's, prison records)? Report findings @ -No old charts were reviewed Differential Diagnosis (chest pain, altered mental status, abdominal pain women, abdominal pain men, vaginal bleeding, musculoskeletal, weakness, fever, dyspnea, syncope, headache, dizziness, GI bleed, back pain, seizure, CVA, palpatations, mental health)? @ -Differential Abdominal Pain Women: Appendicitis, Cholecystitis, diverticulosis, ischemic bowel, pancreatitis, hepatitis, UTI, gastroenteritis, AAA, incarcerated hernia, bowel obstruction, constipation, inflammatory bowel, hepatitis, peptic ulcer disease, splenic infarction, perforated viscus, vulvitis, ovarian torsion, PID, kidney stone, placenta abruption, this is not meant to be an all-inclusive list EKG interpreted by me (3pts min.). @ -None done X-rays interpreted by me (1pt min.). @ -Abdominal x-ray shows nonobstructive bowel process CT interpreted by me (1pt min.). @ -None done U/S interpreted by me (1pt. min.). @ -None done What testing was considered but not performed or refused? (CT, X-rays, U/S, labs)? Why? @ -None What meds were considered but not given or refused? Why? @ -None Did you discuss the management of the patient with other professionals (professionals i.e. , PA, [facility], lab, RT, psych nurse, social group worker, manager strategic marketing, teacher, staff antisubmarine officer, egg caser)? Give summary @ -No Was smoking cessation discussed for >3mins.? @ -No Was critical care preformed (if so, how long)? @ -No Were there social determinants of health that impacted care today? How? (Homelessness, low income, unemployed, alcoholism, drug addiction, transportation, low edu. Level, literacy, decrease access to med. care, long term, rehab)? @ -No Was there de-escalation of care discussed even if they declined (Discuss DNR or withdrawal of care, Hospice)? DNR status @ -No What co-morbidities impacted this encounter? (DM, HTN, Smoking, COPD, CAD, Cancer, CVA, ARF, Chemo, Hep., AIDS, mental health diagnosis, sleep apnea, morbid obesity)? @ -None Was patient admitted / discharged? Hospital course, mention meds given and route, prescriptions, significant lab abnormalities, going to OR and other pertinent info. @ -77-year-old Alzheimer's patient presents to the ER for concerns of abdominal pain. Vital signs upon arrival are within acceptable limits. Patient well- appearing at the bedside no acute distress. She is sitting comfortably watching TV. Labs are unremarkable. Abdominal x-ray negative. Patient had bowel movement in the ER with improvement of symptoms. Patient reevaluated appears well. Urinalysis pending urine culture. Undiagnosed new problem with uncertain prognosis? @ -No Drug Therapy requiring intensive monitoring for toxicity (Heparin, Nitro, Insulin, Cardizem)? @ -No Were any procedures done? @ -No Diagnosis/symptom? Acute, or Chronic, or Acute on Chronic? Uncomplicated (without systemic symptoms) or Complicated (systemic symptoms)? @ -Abdominal pain, no obvious source, no high risk features Side effects of treatment? @ -No Exacerbation, Progression, or Severe Exacerbation? @ -No Poses a threat to life or bodily function? How? (Chest pain, [place], [place], pneumonia, PE, COPD, DKA, ARF, appy, cholecystitis, CVA, Diverticulitis, Homicidal, Suicidal, threat to staff... and all critical care pts) @ -No (Brian Reyes) - Lab Data Lab Results 10/12/23 10/12/23 10/12/23 Range/Units 20:50 20:50 22:15 WBC 9.3 (3.8-10.6) k/uL RBC 4.65 (3.80-5.40) m/uL Hgb 14.4 (11.4-16.0) gm/dL Hct 43.8 (34.0-46.0) % MCV 94.1 (80.0-100.0) fL MCH 30.9 (25.0-35.0) pg MCHC 32.9 (31.0-37.0) g/dL RDW 13.4 (11.5-15.5) % Plt Count 272 (150-450) k/uL MPV 7.7 Neutrophils % 76 % Lymphocytes % 17 % Monocytes % 4 % Eosinophils % 1 % Basophils % 1 % Neutrophils # 7.0 (1.3-7.7) k/uL Lymphocytes # 1.6 (1.0-4.8) k/uL Monocytes # 0.4 (0-1.0) k/uL Eosinophils # 0.1 (0-0.7) k/uL Basophils # 0.1 (0-0.2) k/uL PT 10.4 (10.0-12.5) sec INR 0.9 (<1.2) APTT 23.1 (22.0-30.0) sec Sodium 136 L (137-145) mmol/L Potassium 3.4 L (3.5-5.1) mmol/L Chloride 100 (98-107) mmol/L Carbon Dioxide 28 (22-30) mmol/L Anion Gap 8 mmol/L BUN 22 H (7-17) mg/dL Creatinine 0.65 (0.52-1.04) mg/dL Est GFR (CKD-EPI)AfAm >90 (>60 ml/min/1.73 sqM) Est GFR (CKD-EPI)NonAf 87 (>60 ml/min/1.73 sqM) Glucose 156 H (74-99) mg/dL Calcium 9.2 (8.4-10.2) mg/dL Total Bilirubin 0.7 (0.2-1.3) mg/dL AST 27 (14-36) U/L ALT 32 (4-34) U/L Alkaline Phosphatase 62 (38-126) U/L Troponin I (0.000-0.034) ng/mL Total Protein 6.0 L (6.3-8.2) g/dL Albumin 3.7 (3.5-5.0) g/dL Amylase 47 (30-110) U/L Lipase 136 (23-300) U/L Urine Color Urine Appearance (Clear) Urine pH (5.0-8.0) Ur Specific Marlow (1.001-1.035) Urine Protein (Negative) Urine Glucose (UA) (Negative) Urine Ketones (Negative) Urine Blood (Negative) Urine Nitrite (Negative) Urine Bilirubin (Negative) Urine Urobilinogen (<2.0) mg/dL Ur Leukocyte Esterase (Negative) Urine WBC (0-5) /hpf Ur Squamous Epith Cells (0-4) /hpf Calcium Oxalate Crystal (None) /hpf Amorphous Sediment (None) /hpf Urine Bacteria (None) /hpf Hyaline Casts (0-2) /lpf Urine Mucus (None) /hpf 10/12/23 10/13/23 Range/Units 22:15 00:42 WBC (3.8-10.6) k/uL RBC (3.80-5.40) m/uL Hgb (11.4-16.0) gm/dL Hct (34.0-46.0) % MCV (80.0-100.0) fL MCH (25.0-35.0) pg MCHC (31.0-37.0) g/dL RDW (11.5-15.5) % Plt Count (150-450) k/uL MPV Neutrophils % % Lymphocytes % % Monocytes % % Eosinophils % % Basophils % % Neutrophils # (1.3-7.7) k/uL Lymphocytes # (1.0-4.8) k/uL Monocytes # (0-1.0) k/uL Eosinophils # (0-0.7) k/uL Basophils # (0-0.2) k/uL PT (10.0-12.5) sec INR (<1.2) APTT (22.0-30.0) sec Sodium (137-145) mmol/L Potassium (3.5-5.1) mmol/L Chloride (98-107) mmol/L Carbon Dioxide (22-30) mmol/L Anion Gap mmol/L BUN (7-17) mg/dL Creatinine (0.52-1.04) mg/dL Est GFR (CKD-EPI)AfAm (>60 ml/min/1.73 sqM) Est GFR (CKD-EPI)NonAf (>60 ml/min/1.73 sqM) Glucose (74-99) mg/dL Calcium (8.4-10.2) mg/dL Total Bilirubin (0.2-1.3) mg/dL AST (14-36) U/L ALT (4-34) U/L Alkaline Phosphatase (38-126) U/L Troponin I <0.012 (0.000-0.034) ng/mL Total Protein (6.3-8.2) g/dL Albumin (3.5-5.0) g/dL Amylase (30-110) U/L Lipase (23-300) U/L Urine Color Light Yellow Urine Appearance Cloudy H (Clear) Urine pH 6.0 (5.0-8.0) Ur Specific Marlow 1.019 (1.001-1.035) Urine Protein Negative (Negative) Urine Glucose (UA) Negative (Negative) Urine Ketones Negative (Negative) Urine Blood Negative (Negative) Urine Nitrite Negative (Negative) Urine Bilirubin Negative (Negative) Urine Urobilinogen <2.0 (<2.0) mg/dL Ur Leukocyte Esterase Small H (Negative) Urine WBC 7 H (0-5) /hpf Ur Squamous Epith Cells 1 (0-4) /hpf Calcium Oxalate Crystal Many H (None) /hpf Amorphous Sediment Rare H (None) /hpf Urine Bacteria Many H (None) /hpf Hyaline Casts 11 H (0-2) /lpf Urine Mucus Rare H (None) /hpf Disposition <Luis Mulligan - Last Filed: 10/12/23 20:57> Is patient prescribed a controlled substance at d/c from ED?: No Time of Disposition: 01:31 <Brian Reyes - Last Filed: 10/13/23 01:32> Clinical Impression: Abdominal pain Disposition: HOME SELF-CARE Condition: Good Instructions (If sedation given, give patient instructions): Abdominal Pain (ED) Referrals: Erik Barahona DO [Primary Care Provider] - 1-2 days
[2023-10-12 20:59] LABS: Basophils # (A) 0.1 k/uL (0-0.2); Basophils % (A) 1 %; Eosinophils # (A) 0.1 k/uL (0-0.7); Eosinophils % (A) 1 %; HCT 43.8 % (34.0-46.0); HGB 14.4 gm/dL (11.4-16.0); Lymphocytes # (A) 1.6 k/uL (1.0-4.8); Lymphocytes % (A) 17 %; MCH 30.9 pg (25.0-35.0); MCHC 32.9 g/dL (31.0-37.0); MCV 94.1 fL (80.0-100.0); Mean Platelet Volume 7.7; Monocytes # (A) 0.4 k/uL (0-1.0); Monocytes % (A) 4 %; Neutrophils % (A) 76 %; Platelet Count 272 k/uL (150-450); RBC 4.65 m/uL (3.80-5.40); RDW 13.4 % (11.5-15.5); WBC 9.3 k/uL (3.8-10.6)
[2023-10-12 21:26] LABS: ALT 32 U/L (4-34); AST 27 U/L (14-36); African American GFR (CKD) >90 (>60 ml/min/1.73 sqM); Albumin 3.7 g/dL (3.5-5.0); Alkaline Phosphatase 62 U/L (38-126); Amylase 47 U/L (30-110); Anion Gap 8 mmol/L; Blood Urea Nitrogen 22 mg/dL (7-17); Calcium 9.2 mg/dL (8.4-10.2); Carbon Dioxide 28 mmol/L (22-30); Chloride 100 mmol/L (98-107); Glucose 156 mg/dL (74-99); Lipase 136 U/L (23-300); Non-African American GFR(CKD) 87 (>60 ml/min/1.73 sqM); Potassium 3.4 mmol/L (3.5-5.1); Sodium 136 mmol/L (137-145); Total Bilirubin 0.7 mg/dL (0.2-1.3)
[2023-10-12 22:33] LABS: INR 0.9 (<1.2); Partial Thromboplastin Time 23.1 sec (22.0-30.0); Prothrombin Time 10.4 sec (10.0-12.5)
--- NOTE | 2023-10-13 00:30 | XR ---
EXAM: XR Abdomen, 1 View CLINICAL HISTORY: ITS.REASON XR Reason: abdominal pain TECHNIQUE: Frontal supine view of the abdomen/pelvis. COMPARISON: No relevant prior studies available. FINDINGS: Gastrointestinal tract: Nonspecific, nonobstructive bowel gas pattern. Moderate rectal stool. Organs: Cholecystectomy clips right upper quadrant of the abdomen. Bones/joints: Degenerative changes lower lumbar spine. No acute osseous findings. IMPRESSION: Nonspecific, nonobstructive bowel gas pattern. Moderate rectal stool. Correlate for constipation.
[2023-10-13 01:21] VITALS: PULSE 60
[2023-10-13 01:26] LABS: Amorphous Sediment,Urine Rare /hpf; Appearance,Urine Cloudy (Clear); Bacteria,Urine Many /hpf; Bilirubin,Urine Negative (Negative); Blood,Urine Negative (Negative); Calcium Oxalate Crystals,Urine Many /hpf; Color,Urine Light Yellow; Glucose,Urine (UA) Negative (Negative); Hyaline Casts,Urine 11 /lpf (0-2); Ketones,Urine Negative (Negative); Leukocyte Esterase,Urine Small (Negative); Mucus,Urine Rare /hpf; Nitrite,Urine Negative (Negative); Protein,Urine Negative (Negative); Specific Gravity,Urine 1.019 (1.001-1.035); Squamous Epithelial Cell,Urine 1 /hpf (0-4); Urobilinogen,Urine <2.0 mg/dL (<2.0); WBC,Urine 7 /hpf (0-5)
[2023-10-13 02:02] VITALS: BP 110/64; RESP 16; TEMP 97.6
== END 2023-10-13 01:42 | disposition home or self-care (01) ==
LOC: EC 20:16
DX: R10.30 Lower abdominal pain, unspecified (principal); Z90.49 Acquired absence of other specified parts of digestive tract
CPT/HCPCS: 36415; 74018; 80053; 81001; 82150; 83690; 84484; 85025; 85610; 85730; 93005; 99284

== ENCOUNTER → 2023-10-26 | Outpatient (CLI) | payer MEDICARE ==
--- NOTE | 2023-10-26 11:45 | US ---
EXAMINATION TYPE: US venous doppler duplex LE DATE OF EXAM: 10/26/2023 11:31 AM COMPARISON: NONE CLINICAL INDICATION: Female, 77 years old with history of M79.89 LEG SWELLING; bilat ankle/calf swell ing x weeks SIDE PERFORMED: Bilateral TECHNIQUE: The lower extremity deep venous system is examined utilizing real time linear array sonog nilda with graded compression, doppler sonography and color-flow sonography. VESSELS IMAGED: Common Femoral Vein Deep Femoral Vein Greater Saphenous Vein * Femoral Vein Popliteal Vein Small Saphenous Vein * Proximal Calf Veins (* superficial vessels) Right Leg: Negative for DVT Left Leg: Negative for DVT exam limited by patient body habitus, pain, and lack of cooperation due to dementia results given to Evelin at office IMPRESSION: Grayscale, color doppler, spectral doppler imaging performed of the deep veins of the lo wer extremities. There is normal flow, compressibility, vascular waveforms.
== END | disposition home or self-care (01) ==
LOC: RADUSWWP 10:48
PROVIDERS: ATTEND Internal Medicine
DX: M79.89 Other specified soft tissue disorders (principal)
CPT/HCPCS: 93970

== ENCOUNTER 2023-12-26 10:12 | Emergency (ER) | payer MEDICARE ==
--- NOTE | 2023-12-26 11:09 | ED ---
Extremity Problem HPI - General Chief complaint: Extremity Problem,Nontraumatic Stated complaint: Leg wound Time Seen by Provider: 12/26/23 11:07 Source: patient, family, RN notes reviewed Mode of arrival: ambulatory Limitations: no limitations - History of Present Illness Initial comments: This is a 78-year-old female who presents to the emergency department for a wound to her left lower extremity. Family states that she developed clear blisters to the leg about 9 days ago that her PCP was just monitoring. Family states that these then began to break open and coalesce into one large wound causing redness and swelling in her leg. She has not had any fevers or chills. Patient currently denies any pain, however family states that she has dementia and this is not reliable. - Related Data Home Medications Medication Instructions Recorded Confirmed Amlodipine Besylate/Valsartan 1 each PO DAILY 06/28/14 01/09/15 [Exforge 5-160 mg Tablet] Atorvastatin [Lipitor] 40 mg PO HS 06/28/14 01/09/15 Celecoxib [CeleBREX] 200 mg PO BID 06/28/14 01/09/15 Cevimeline HCl [Evoxac] 30 mg PO TID 06/28/14 01/09/15 Esomeprazole Magnesium [NexIUM] 40 mg PO DAILY 06/28/14 01/09/15 Multivitamins, Thera [Multivitamin] 1 each PO DAILY 06/28/14 01/09/15 allopurinoL [Zyloprim] 300 mg PO DAILY 06/28/14 01/09/15 traMADol-ACETAMINOP 37.5-325MG 2 each PO Q4-6H PRN 06/28/14 01/09/15 [Ultracet] ALPRAZolam [Xanax] 0.25 mg PO TID PRN 01/09/15 01/09/15 Previous Rx's Medication Instructions Recorded Azithromycin [Zithromax Z Pack] 1 tab PO DIRECTED #6 tab 03/14/22 methylPREDNISolone Dose Pack 4 mg PO DIRECTED #21 tab 03/14/22 [Medrol Dose Pack] Bacitracin Zinc Oint 1 applic TOPICAL DAILY #28 gm 12/26/23 Bacitracin Zinc Oint 1 applic TOPICAL DAILY #28 gm 12/26/23 Cephalexin [Keflex] 500 mg PO Q6HR 7 Days #28 cap 12/26/23 Cephalexin [Keflex] 500 mg PO Q6HR 7 Days #28 cap 12/26/23 Allergies Allergy/AdvReac Type Severity Reaction Status Date / Time No Known Allergies Allergy Verified 08/20/23 00:45 Review of Systems ROS Statement: Those systems with pertinent positive or pertinent negative responses have been documented in the HPI. ROS Other: All systems not noted in ROS Statement are negative. Past Medical History Past Medical History: Dementia, GERD/Reflux, Hypertension, Pneumonia, Sleep Apnea/CPAP/BIPAP Additional Past Medical History / Comment(s): hx migraines,sjogrens,hx pneumonia, hx kidney stones History of Any Multi-Drug Resistant Organisms: None Reported Past Surgical History: Section, Cholecystectomy, Hysterectomy, Joint Replacement Additional Past Surgical History / Comment(s): ariana knee and rt shoulder replacement, cataracts, surgery on left thumb and wrist, Past Anesthesia/Blood Transfusion Reactions: Previous Problems w/ Anesthesia Additional Past Anesthesia/Blood Transfusion Reaction / Comment(s): "almost aspirated" Past Psychological History: Anxiety Smoking Status: Unknown if ever smoked Past Alcohol Use History: None Reported Past Drug Use History: None Reported - Past Family History Father Family Medical History: Cancer Additional Family Medical History / Comment(s): colon cancer General Exam Limitations: no limitations General appearance: alert, in no apparent distress Head exam: Present: atraumatic, normocephalic, normal inspection Respiratory exam: Present: normal lung sounds bilaterally. Absent: respiratory distress, wheezes, rales, rhonchi, stridor Cardiovascular Exam: Present: regular rate, normal rhythm, normal heart sounds. Absent: systolic murmur, diastolic murmur, rubs, gallop, clicks Neurological exam: Present: alert, oriented X3, CN II-XII intact Psychiatric exam: Present: normal affect, normal mood Skin exam: Present: other (Blisters containing clear fluid to the anterior aspect of the left tib-fib. Large centralized blister that has broken open with underlying erythematous tissue) Course Vital Signs 12/26/23 12/26/23 12/26/23 10:41 12:43 15:38 Temperature 98 F 98.3 F 98.2 F Pulse Rate 72 73 67 Respiratory 20 16 18 Rate Blood Pressure 136/76 103/53 105/64 O2 Sat by Pulse 98 96 96 Oximetry Medical Decision Making - Medical Decision Making This is a 78 year old female who presents to the emergency department for left leg blisters/rash. Was pt. sent in by a medical professional or institution? @ -No Did you speak to anyone other than the patient for history? @ -Family provided the majority of the history. Did you review nursing and triage notes? @ -Yes, and I agree, it is accurate with regards to the patient's symptoms. Were old charts reviewed? @ -No Differential Diagnosis? @ -Differential Blisters: Burn, insect bite, abscess, cellulitis, this is not meant to be an all-inclusive list. EKG interpreted by me (3pts min.)? @ -Not obtained X-rays interpreted by me (1pt min.)? @ -X-ray of the left tib-fib obtained. My interpretation identifies no evide nce of subcutaneous gas formation. CT interpreted by me (1pt min.)? @ -Not obtained U/S interpreted by me (1pt. min.)? @ -None What testing was considered but not performed? (CT, X-rays, U/S, labs)? Why? @ -None What meds were considered but not given? Why? @ -None Did you discuss the management of the patient with other professionals? @ -No Did you reconcile home meds? @ -No Was smoking cessation discussed for >3mins.? @ -No Was critical care preformed (if so, how long)? @ -No Were there social determinants of health that impacted care today? How? (Homelessness, low income, unemployed, alcoholism, drug addiction, transportation, low edu. Level, literacy, decrease access to med. care, snf, rehab)? @ -No Was there de-escalation of care discussed even if they declined? (Discuss DNR or withdrawal of care, Hospice)? @ -No What co-morbidities impacted this encounter? (DM, HTN, Smoking, COPD, CAD, Cancer, CVA, Hep., AIDS, mental health diagnosis, sleep apnea, morbid obesity)? @ -Dementia Was patient admitted / discharged? @ -Discharged. Lab work demonstrates mild leukocytosis and a mild elevation in lactic acid. X-ray of the left tib-fib demonstrates soft tissue edema without evidence of erosion to suggest osteomyelitis. Patient appears to have several clear fluid-filled blisters on the left lower extremity with one larger one that has broken open with erythematous tissue underneath it. Will start patient on antibiotics for management of any infectious component. Prescription for Keflex provided. She was also given a prescription for bacitracin ointment to apply before bandaging the wounds. Ceftriaxone administered prior to discharge as well. Patient lives at an assisted living facility, who will help her with wound dressing changes as well. Otherwise advised close follow-up with her primary care provider. Undiagnosed new problem with uncertain prognosis? @ -None Drug Therapy requiring intensive monitoring for toxicity (Heparin, Nitro, Insulin, Cardizem)? @ -None Were any procedures done? @ -None Diagnosis/symptom? @ -Left leg blisters, cellulitis Acute, or Chronic, or Acute on Chronic? @ -Acute Uncomplicated (without systemic symptoms) or Complicated (systemic symptoms)? @ -Uncomplicated Side effects of treatment? @ -None Exacerbation, Progression, or Severe Exacerbation] @ -Not applicable Poses a threat to life or bodily function? @ -No Return precautions reviewed in depth, the patient is instructed to return to the emergency department with any new, worsening, or concerning symptoms. Patient and family verbalized understanding. This case was discussed in detail with the attending ED physician, Dr. Jackson. Presentation, findings, and treatment plan discussed in detail as well. - Lab Data Result diagrams: 12/26/23 13:51 12/26/23 13:51 Lab Results 12/26/23 12/26/23 12/26/23 Range/Units 13:51 13:51 13:51 WBC 10.7 H (3.8-10.6) k/uL RBC 4.29 (3.80-5.40) m/uL Hgb 13.6 (11.4-16.0) gm/dL Hct 42.5 (34.0-46.0) % MCV 98.8 (80.0-100.0) fL MCH 31.6 (25.0-35.0) pg MCHC 32.0 (31.0-37.0) g/dL RDW 13.0 (11.5-15.5) % Plt Count 230 (150-450) k/uL MPV 8.2 Neutrophils % 81 % Lymphocytes % 10 % Monocytes % 7 % Eosinophils % 1 % Basophils % 1 % Neutrophils # 8.6 H (1.3-7.7) k/uL Lymphocytes # 1.0 (1.0-4.8) k/uL Monocytes # 0.7 (0-1.0) k/uL Eosinophils # 0.1 (0-0.7) k/uL Basophils # 0.1 (0-0.2) k/uL ESR 18 (0-30) mm/Hr Sodium 140 (137-145) mmol/L Potassium 3.9 (3.5-5.1) mmol/L Chloride 107 (98-107) mmol/L Carbon Dioxide 26 (22-30) mmol/L Anion Gap 7 mmol/L BUN 16 (7-17) mg/dL Creatinine 0.64 (0.52-1.04) mg/dL Est GFR (CKD-EPI)AfAm >90 (>60 ml/min/1.73 sqM) Est GFR (CKD-EPI)NonAf 87 (>60 ml/min/1.73 sqM) Glucose 134 H (74-99) mg/dL Lactic Ac Sepsis Rflx Plasma Lactic Acid Juancarlos 3.0 H* (0.7-2.0) mmol/L Calcium 9.4 (8.4-10.2) mg/dL Total Bilirubin 0.7 (0.2-1.3) mg/dL AST 28 (14-36) U/L ALT 26 (4-34) U/L Alkaline Phosphatase 50 (38-126) U/L C-Reactive Protein <0.5 (<1.0) mg/dL Total Protein 5.8 L (6.3-8.2) g/dL Albumin 3.6 (3.5-5.0) g/dL 12/26/23 Range/Units 14:54 WBC (3.8-10.6) k/uL RBC (3.80-5.40) m/uL Hgb (11.4-16.0) gm/dL Hct (34.0-46.0) % MCV (80.0-100.0) fL MCH (25.0-35.0) pg MCHC (31.0-37.0) g/dL RDW (11.5-15.5) % Plt Count (150-450) k/uL MPV Neutrophils % % Lymphocytes % % Monocytes % % Eosinophils % % Basophils % % Neutrophils # (1.3-7.7) k/uL Lymphocytes # (1.0-4.8) k/uL Monocytes # (0-1.0) k/uL Eosinophils # (0-0.7) k/uL Basophils # (0-0.2) k/uL ESR (0-30) mm/Hr Sodium (137-145) mmol/L Potassium (3.5-5.1) mmol/L Chloride (98-107) mmol/L Carbon Dioxide (22-30) mmol/L Anion Gap mmol/L BUN (7-17) mg/dL Creatinine (0.52-1.04) mg/dL Est GFR (CKD-EPI)AfAm (>60 ml/min/1.73 sqM) Est GFR (CKD-EPI)NonAf (>60 ml/min/1.73 sqM) Glucose (74-99) mg/dL Lactic Ac Sepsis Rflx Y Plasma Lactic Acid Juancarlos (0.7-2.0) mmol/L Calcium (8.4-10.2) mg/dL Total Bilirubin (0.2-1.3) mg/dL AST (14-36) U/L ALT (4-34) U/L Alkaline Phosphatase (38-126) U/L C-Reactive Protein (<1.0) mg/dL Total Protein (6.3-8.2) g/dL Albumin (3.5-5.0) g/dL - Radiology Data Radiology results: report reviewed, image reviewed Disposition Clinical Impression: Blister of left lower leg, Cellulitis of left leg Disposition: HOME SELF-CARE Instructions (If sedation given, give patient instructions): Cellulitis (ED) Additional Instructions: Return to the emergency department with any new, worsening, or concerning symptoms. Take the antibiotic as prescribed for 7 days. Apply the bacitracin ointment whenever the dressing on the leg is changed. Follow up with her primary care provider in 1-2 days. Prescriptions: Bacitracin Zinc Oint 1 applic TOPICAL DAILY #28 gm Bacitracin Zinc Oint 1 applic TOPICAL DAILY #28 gm Cephalexin [Keflex] 500 mg PO Q6HR 7 Days #28 cap Cephalexin [Keflex] 500 mg PO Q6HR 7 Days #28 cap Is patient prescribed a controlled substance at d/c from ED?: No Referrals: Erik Barahona DO [Primary Care Provider] - 1-2 days Time of Disposition: 14:59
--- NOTE | 2023-12-26 12:42 | XR ---
EXAMINATION TYPE: XR tibia fibula LT DATE OF EXAM: 12/26/2023 12:28 PM CLINICAL INDICATION:Female, 78 years old with history of Infection; [facility] COMPARISON: None TECHNIQUE: XR tibia fibula LT; tibia/fibula was examined in AP and lateral projections. FINDINGS: Soft tissue swelling without evidence for osseous erosion. Calcaneal enthesophyte formation . No subcutaneous gas visualized. No evidence of any acute osseous pathology, joint dislocation, or s oft tissue swelling is noted. Total knee arthroplasty appears intact. IMPRESSION: 1. No evidence of acute fracture. 2. Soft tissue edema without evidence for erosion to suggest osteomyelitis.
[2023-12-26 14:01] LABS: Basophils # (A) 0.1 k/uL (0-0.2); Basophils % (A) 1 %; Eosinophils # (A) 0.1 k/uL (0-0.7); Eosinophils % (A) 1 %; HCT 42.5 % (34.0-46.0); HGB 13.6 gm/dL (11.4-16.0); Lymphocytes % (A) 10 %; MCH 31.6 pg (25.0-35.0); MCV 98.8 fL (80.0-100.0); Mean Platelet Volume 8.2; Monocytes # (A) 0.7 k/uL (0-1.0); Monocytes % (A) 7 %; Neutrophils # (A) 8.6 k/uL (1.3-7.7); Neutrophils % (A) 81 %; Platelet Count 230 k/uL (150-450); RBC 4.29 m/uL (3.80-5.40); WBC 10.7 k/uL (3.8-10.6)
[2023-12-26 14:25] LABS: ALT 26 U/L (4-34); AST 28 U/L (14-36); African American GFR (CKD) >90 (>60 ml/min/1.73 sqM); Albumin 3.6 g/dL (3.5-5.0); Alkaline Phosphatase 50 U/L (38-126); Anion Gap 7 mmol/L; Blood Urea Nitrogen 16 mg/dL (7-17); Calcium 9.4 mg/dL (8.4-10.2); Carbon Dioxide 26 mmol/L (22-30); Chloride 107 mmol/L (98-107); Glucose 134 mg/dL (74-99); Non-African American GFR(CKD) 87 (>60 ml/min/1.73 sqM); Potassium 3.9 mmol/L (3.5-5.1); Sodium 140 mmol/L (137-145); Total Bilirubin 0.7 mg/dL (0.2-1.3); Total Protein 5.8 g/dL (6.3-8.2)
[2023-12-26] MEDS: cefTRIAXone 1,000 MG VIAL (IM USE) IM STA (15:26)
[2023-12-26] MEDS: cefTRIAXone IN SWFI 1,000 MG/10 ML SYRINGE IVP STA (15:26)
[2023-12-26] MEDS: BACITRACIN OINT 1 EACH PACKET TOPICAL ONE (15:26)
[2023-12-26 15:42] VITALS: BP 105/64; PULSE 67; RESP 18; TEMP 98.2
[2023-12-26 15:50] LABS: C Reactive Protein <0.5 mg/dL (<1.0)
[2023-12-26 23:20] LABS: Erythrocyte Sedimentation Rate 18 mm/Hr (0-30)
== END 2023-12-26 15:48 | disposition home or self-care (01) ==
LOC: EC 10:12
DX: S80.822A Blister (nonthermal), left lower leg, initial encounter (principal); F03.90 Unspecified dementia, unspecified severity, without behavioral disturbance, psychotic disturbance, mood disturbance, and anxiety; Z90.49 Acquired absence of other specified parts of digestive tract; X58.XXXA Exposure to other specified factors, initial encounter
CPT/HCPCS: 36415; 80053; 85652; 83605; 85025; 86140; 73590; 99283; 96374; J0696

== ENCOUNTER 2024-02-17 07:16 | Inpatient (IN) | payer MEDICARE ==
--- NOTE | 2024-02-17 08:04 | ED ---
General Adult HPI - General Chief complaint: Abdominal Pain Stated complaint: Back pain Time Seen by Provider: 02/17/24 07:40 Source: EMS Mode of arrival: EMS - History of Present Illness Initial comments: 78-year-old female who presents emergency department reporting right flank pain. Patient has a history of dementia and resides at [facility]. states that he was with her until 730 last night and the patient had no complaints. Today the patient would not get out of bed due to right-sided back pain. Appeared to be worse with movement. She was not administered any medications prior to being transported to the hospital. states she does have chronic low back pain issues but is typically able to ambulate without a walker. is also concerned about redness to the left lower extremity. Patient does have chronic wounds and sees wound care. She was seen yesterday in the wound care clinic. Patient was started on clindamycin but it does not appear that she has received any doses yet. does not believe that the patient has had any falls. No reported fevers. No other alleviating, precipitating or modifying factors - Related Data Home Medications Medication Instructions Recorded Confirmed Atorvastatin [Lipitor] 40 mg PO HS 06/28/14 02/17/24 allopurinoL [Zyloprim] 300 mg PO DAILY 06/28/14 02/17/24 Acetaminophen Tab [Tylenol Tab] 500 mg PO Q4H PRN MDD 4gm 02/17/24 02/17/24 Budesonide [Budesonide ER] 9 mg PO DAILY 02/17/24 02/17/24 Cavilon No Sting Avila Film 1 applic TOPICAL DAILY PRN 02/17/24 02/17/24 Cholestyramine (with Sugar) 4 gm PO DAILY@1200 02/17/24 02/17/24 [Cholestyramine Packet] Escitalopram [Lexapro] 10 mg PO DAILY 02/17/24 02/17/24 Furosemide [Lasix] 20 mg PO DAILY 02/17/24 02/17/24 Elias Packet 1 packet PO BID 02/17/24 02/17/24 Magnesium Oxide [Mag-Ox] 400 mg PO DAILY 02/17/24 02/17/24 Medihoney 1 applic TOPICAL DAILY 02/17/24 02/17/24 Metoprolol Succinate (ER) [Toprol 50 mg PO BID 02/17/24 02/17/24 Xl] Nystatin [Nystop] 1 applic TOPICAL TID 02/17/24 02/17/24 Potassium Chloride ER [K-Dur 20] 20 meq PO DAILY 02/17/24 02/17/24 Silver Sulfadiazine [Silver 1 applic TOPICAL BID 02/17/24 02/17/24 Sulfadiazine 1%] Spironolactone 50 mg PO DAILY 02/17/24 02/17/24 Tolterodine ER [Detrol LA] 2 mg PO DAILY 02/17/24 02/17/24 Zinc Oxide 20% Oint 1 applic TOPICAL DAILY PRN 02/17/24 02/17/24 clindamycin HCL 300 mg PO TID 02/17/24 02/17/24 hydrOXYzine HCL [Atarax] 10 mg PO QID PRN 02/17/24 02/17/24 metFORMIN HCL [Glucophage] 500 mg PO BID 02/17/24 02/17/24 traZODone HCL [Desyrel] 50 mg PO HS PRN 02/17/24 02/17/24 Previous Rx's Medication Instructions Recorded Bacitracin Zinc Oint 1 applic TOPICAL DAILY #28 gm 12/26/23 Allergies Allergy/AdvReac Type Severity Reaction Status Date / Time No Known Allergies Allergy Verified 02/17/24 14:10 Review of Systems ROS Statement: Those systems with pertinent positive or pertinent negative responses have been documented in the HPI. ROS Other: All systems not noted in ROS Statement are negative. Past Medical History Past Medical History: Dementia, GERD/Reflux, Hypertension, Pneumonia, Sleep Apnea/CPAP/BIPAP Additional Past Medical History / Comment(s): hx migraines,sjogrens,hx pneumonia, hx kidney stones History of Any Multi-Drug Resistant Organisms: None Reported Past Surgical History: Section, Cholecystectomy, Hysterectomy, Joint Replacement Additional Past Surgical History / Comment(s): ariana knee and rt shoulder replacement, cataracts, surgery on left thumb and wrist, Past Anesthesia/Blood Transfusion Reactions: Previous Problems w/ Anesthesia Additional Past Anesthesia/Blood Transfusion Reaction / Comment(s): "almost aspirated" Past Psychological History: Anxiety Smoking Status: Unknown if ever smoked Past Alcohol Use History: None Reported Past Drug Use History: None Reported - Past Family History Father Family Medical History: Cancer Additional Family Medical History / Comment(s): colon cancer General Exam Limitations: altered mental status General appearance: alert, in no apparent distress Head exam: Present: atraumatic, normocephalic, normal inspection Eye exam: Present: normal appearance, PERRL, EOMI. Absent: scleral icterus, conjunctival injection, periorbital swelling ENT exam: Present: normal exam, mucous membranes moist Neck exam: Present: normal inspection. Absent: tenderness, meningismus, lymphadenopathy Respiratory exam: Present: normal lung sounds bilaterally. Absent: respiratory distress, wheezes, rales, rhonchi, stridor Cardiovascular Exam: Present: bradycardia GI/Abdominal exam: Present: soft, normal bowel sounds. Absent: distended, tend erness, guarding, rebound, rigid Back exam: Present: CVA tenderness (R) Neurological exam: Present: alert Psychiatric exam: Present: normal affect, normal mood Course Vital Signs 02/17/24 02/17/24 02/17/24 07:31 10:22 11:38 Temperature 99.0 F Pulse Rate 56 L 58 L 60 Respiratory 18 18 18 Rate Blood Pressure 143/73 125/75 116/66 O2 Sat by Pulse 96 95 95 Oximetry 02/17/24 02/17/24 02/17/24 13:26 14:31 17:00 Temperature Pulse Rate 56 L 54 L 52 L Respiratory 18 18 18 Rate Blood Pressure 124/65 116/73 142/71 O2 Sat by Pulse 97 97 97 Oximetry 02/17/24 17:47 Temperature 98.8 F Pulse Rate 89 Respiratory 18 Rate Blood Pressure 149/65 O2 Sat by Pulse 96 Oximetry Medical Decision Making - Medical Decision Making Was pt. sent in by a medical professional or institution (, PA, MIDDLE SCHOOL COMBINATION TEACHER, urgent care, hospital, or long term...) When possible be specific @ -No Did you speak to anyone other than the patient for history (EMS, parent, family, police, friend...)? What history was obtained from this source @ -Spoke with EMS and the for history Did you review nursing and triage notes (agree or disagree)? Why? @ -I reviewed and agree with nursing and triage notes Were old charts reviewed (outside hosp., previous admission, EMS record, old EKG, old radiological studies, urgent care reports/EKG's, long term records)? Report findings @ -No old charts were reviewed Differential Diagnosis (chest pain, altered mental status, abdominal pain women, abdominal pain men, vaginal bleeding, weakness, fever, dyspnea, syncope, headache, dizziness, GI bleed, back pain, seizure, CVA, palpatations, mental health, musculoskeletal)? @ -Differential Back Pain: Strain, zoster, cauda equina syndrome, epidural abscess, vertebral osteomyelitis, discitis, fracture, subluxation, disc herniation, DJD, spinal stenosis, dissection, AAA, pancreatitis, peptic ulcer disease, pyelonephritis, kidney stone, this is not meant to be an all-inclusive list. EKG interpreted by me (3pts min.). @ -Not done X-rays interpreted by me (1pt min.). @ -yes and demonstrates no fractures CT interpreted by me (1pt min.). @ -None done U/S interpreted by me (1pt. min.). @ -None done What testing was considered but not performed or refused? (CT, X-rays, U/S, la bs)? Why? @ -None What meds were considered but not given or refused? Why? @ -None Did you discuss the management of the patient with other professionals (professionals i.e. , PA, MIDDLE SCHOOL COMBINATION TEACHER, lab, RT, psych nurse, social insurance analyst, tile fitter, teacher, welfare officer, child welfare caseworker)? Give summary @ -Spoke with Dr. Prakash Was smoking cessation discussed for >3mins.? @ -No Was critical care preformed (if so, how long)? @ -No Were there social determinants of health that impacted care today? How? (Homelessness, low income, unemployed, alcoholism, drug addiction, transportation, low edu. Level, literacy, decrease access to med. care, snf, rehab)? @ -Patient lives in a nursing facility. She has advanced dementia Was there de-escalation of care discussed even if they declined (Discuss DNR or withdrawal of care, Hospice)? DNR status @ -No What co-morbidities impacted this encounter? (DM, HTN, Smoking, COPD, CAD, Cancer, CVA, ARF, Chemo, Hep., AIDS, mental health diagnosis, sleep apnea, morbid obesity)? @ -Recurrent cellulitis, dementia Was patient admitted / discharged? Hospital course, mention meds given and route, prescriptions, significant lab abnormalities, going to OR and other pertinent info. @ -Upon arrival patient seen and evaluated in room 11. Thorough history and physical exam was performed. Patient has palpable right-sided back pain. X- rays performed. Laboratory studies are conducted. She is given pain medications. I also administered clindamycin as patient has a recently diagnosed cellulitis of the left leg that her facility has not initiated her antibiotics yet. Patient does provide urine sample which demonstrates infection. She is given additional antibiotics because of the pyelonephritis. We attempt to ambulate the patient however she is unable to walk with a two- person assist. Recommended admission for cellulitis, pyelonephritis, weakness and back pain. was agreeable to this. Patient admitted to Dr. Prakash. Undiagnosed new problem with uncertain prognosis? @ -No Drug Therapy requiring intensive monitoring for toxicity (Heparin, Nitro, In sulin, Cardizem)? @ -No Were any procedures done? @ -No Diagnosis/symptom? @ -Acute right-sided back pain, acute pyelonephritis, left leg cellulitis, inability to ambulate Acute, or Chronic, or Acute on Chronic? @ -Acute Uncomplicated (without systemic symptoms) or Complicated (systemic symptoms)? @ -Complicated Side effects of treatment? @ -No Exacerbation, Progression, or Severe Exacerbation? @ -No Poses a threat to life or bodily function? How? (Chest pain, USA, VT, pneumonia, PE, COPD, DKA, ARF, appy, cholecystitis, CVA, Diverticulitis, Homicidal, Suicidal, threat to staff... and all critical care pts) @ -No - Lab Data Result diagrams: 02/21/24 06:35 02/21/24 06:35 Lab Results 02/17/24 02/17/24 02/17/24 Range/Units 08:37 08:37 10:37 WBC 11.9 H (3.8-10.6) k/uL RBC 4.62 (3.80-5.40) m/uL Hgb 14.5 (11.4-16.0) gm/dL Hct 44.3 (34.0-46.0) % MCV 95.8 (80.0-100.0) fL MCH 31.5 (25.0-35.0) pg MCHC 32.8 (31.0-37.0) g/dL RDW 12.7 (11.5-15.5) % Plt Count 142 L (150-450) k/uL MPV 8.4 Neutrophils % 81 % Lymphocytes % 11 % Monocytes % 5 % Eosinophils % 2 % Basophils % 0 % Neutrophils # 9.7 H (1.3-7.7) k/uL Lymphocytes # 1.4 (1.0-4.8) k/uL Monocytes # 0.6 (0-1.0) k/uL Eosinophils # 0.2 (0-0.7) k/uL Basophils # 0.0 (0-0.2) k/uL Sodium 138 (137-145) mmol/L Potassium 3.8 (3.5-5.1) mmol/L Chloride 104 (98-107) mmol/L Carbon Dioxide 30 (22-30) mmol/L Anion Gap 4 mmol/L BUN 24 H (7-17) mg/dL Creatinine 0.67 (0.52-1.04) mg/dL Est GFR (CKD-EPI)AfAm >90 (>60 ml/min/1.73 sqM) Est GFR (CKD-EPI)NonAf 86 (>60 ml/min/1.73 sqM) Glucose 154 H (74-99) mg/dL Calcium 9.8 (8.4-10.2) mg/dL Total Bilirubin 1.3 (0.2-1.3) mg/dL AST 29 (14-36) U/L ALT 23 (4-34) U/L Alkaline Phosphatase 56 (38-126) U/L Total Protein 6.5 (6.3-8.2) g/dL Albumin 3.9 (3.5-5.0) g/dL Urine Color Yellow Urine Appearance Cloudy H (Clear) Urine pH 7.5 (5.0-8.0) Ur Specific [place] 1.023 (1.001-1.035) Urine Protein Trace H (Negative) Urine Glucose (UA) Negative (Negative) Urine Ketones Negative (Negative) Urine Blood Negative (Negative) Urine Nitrite Positive H (Negative) Urine Bilirubin Negative (Negative) Urine Urobilinogen <2.0 (<2.0) mg/dL Ur Leukocyte Esterase Moderate H (Negative) Urine RBC 9 H (0-5) /hpf Urine WBC 37 H (0-5) /hpf Ur Squamous Epith Cells <1 (0-4) /hpf Urine Bacteria Moderate H (None) /hpf Urine Mucus Rare H (None) /hpf Disposition Clinical Impression: Left leg cellulitis, Pyelonephritis, Flank pain, Weakness Disposition: ADMITTED IP TO THIS HOSP Condition: Stable Is patient prescribed a controlled substance at d/c from ED?: No Time of Disposition: 13:58 Decision to Admit Reason: Admit from EC Decision Date: 02/17/24 Decision Time: 13:58
[2024-02-17] MEDS: KETOROLAC 15 MG/ML 1 ML VIAL IVP STA (08:43)
[2024-02-17] MEDS: LIDOCAINE 4% PATCH TOPICAL ONE (08:43)
[2024-02-17 08:51] LABS: Basophils % (A) 0 %; Eosinophils # (A) 0.2 k/uL (0-0.7); Eosinophils % (A) 2 %; HCT 44.3 % (34.0-46.0); HGB 14.5 gm/dL (11.4-16.0); Lymphocytes # (A) 1.4 k/uL (1.0-4.8); Lymphocytes % (A) 11 %; MCH 31.5 pg (25.0-35.0); MCHC 32.8 g/dL (31.0-37.0); MCV 95.8 fL (80.0-100.0); Mean Platelet Volume 8.4; Monocytes # (A) 0.6 k/uL (0-1.0); Monocytes % (A) 5 %; Neutrophils # (A) 9.7 k/uL (1.3-7.7); Neutrophils % (A) 81 %; Platelet Count 142 k/uL (150-450); RBC 4.62 m/uL (3.80-5.40); RDW 12.7 % (11.5-15.5); WBC 11.9 k/uL (3.8-10.6)
[2024-02-17 09:04] LABS: ALT 23 U/L (4-34); African American GFR (CKD) >90 (>60 ml/min/1.73 sqM); Albumin 3.9 g/dL (3.5-5.0); Anion Gap 4 mmol/L; Blood Urea Nitrogen 24 mg/dL (7-17); Calcium 9.8 mg/dL (8.4-10.2); Carbon Dioxide 30 mmol/L (22-30); Chloride 104 mmol/L (98-107); Glucose 154 mg/dL (74-99); Non-African American GFR(CKD) 86 (>60 ml/min/1.73 sqM); Sodium 138 mmol/L (137-145); Total Bilirubin 1.3 mg/dL (0.2-1.3); Total Protein 6.5 g/dL (6.3-8.2)
[2024-02-17 09:08] LABS: AST 29 U/L (14-36); Alkaline Phosphatase 56 U/L (38-126); Potassium 3.8 mmol/L (3.5-5.1)
[2024-02-17] MEDS: CLINDAMYCIN 600 MG in DEXTROSE 5% IN WATER 50 ML IVPB STA (09:20)
[2024-02-17] MEDS: methocarbamoL 750 MG TAB PO STA (09:20)
--- NOTE | 2024-02-17 10:11 | XR ---
EXAMINATION TYPE: XR lumbar spine 2 or 3V DATE OF EXAM: 02/17/2024 10:02 AM CLINICAL INDICATION: Female, 78 years old with history of dementia hx, pain; COMPARISON: 07/29/2016 TECHNIQUE: XR lumbar spine 2 or 3V - Frontal, lateral and coned in L5-S1 lateral views of the spine. FINDINGS: No evidence of any acute osseous pathology. No evidence of loss of vertebral body height i s seen. There is normal grade 1 anterolisthesis of L4 and L5 alignment of the lumbar vertebral bodies . Scattered disc space narrowing. Multilevel marginal osteophyte formation throughout the visualized spine. There is facet joint arthropathy throughout the spine. Scattered at least mild neural foramina l stenosis. IMPRESSION: 1. No acute fracture. 2. Mild multilevel disc degeneration. 3. Grade 1 anterolisthesis of L4 and L5.
[2024-02-17 11:08] LABS: Appearance,Urine Cloudy (Clear); Bacteria,Urine Moderate /hpf; Bilirubin,Urine Negative (Negative); Blood,Urine Negative (Negative); Color,Urine Yellow; Glucose,Urine (UA) Negative (Negative); Ketones,Urine Negative (Negative); Leukocyte Esterase,Urine Moderate (Negative); Mucus,Urine Rare /hpf; Nitrite,Urine Positive (Negative); PH, Urine 7.5 (5.0-8.0); Protein,Urine Trace (Negative); RBC,Urine 9 /hpf (0-5); Specific Gravity,Urine 1.023 (1.001-1.035); Squamous Epithelial Cell,Urine <1 /hpf (0-4); Urobilinogen,Urine <2.0 mg/dL (<2.0); WBC,Urine 37 /hpf (0-5)
[2024-02-17] MEDS ORDERED: NALOXONE 0.4 MG/ML 1 ML VIAL IV PRN (13:58)
[2024-02-17] MEDS: SODIUM CHLORIDE 0.9% 1,000 ML IV SCH (14:31)
[2024-02-17] MEDS: cefTRIAXone IN SWFI 1,000 MG/10 ML SYRINGE IVP STA (14:31)
[2024-02-17] MEDS ORDERED: hydrOXYzine HCL 10 MG TAB PO PRN (15:59)
[2024-02-17] MEDS ORDERED: traZODone HCL 50 MG TAB PO PRN (15:59)
--- NOTE | 2024-02-17 16:15 | P.HPIM ---
History of Present Illness H&P Date: 02/17/24 Chief Complaint: back pain 78 y/o female with hx of dementia, GERD/Reflux, Hypertension, Sleep Apnea presented to the ER due to right flank pain. Patient has a history of dementia and resides at [facility]. states that he was with her until 730 last night and the patient had no complaints. Today the patient would not get out of bed due to right-sided back pain. Appeared to be worse with movement. states she does have chronic low back pain issues but is typically able to ambulate. is also concerned about redness to the left lower extremity. Patient does have chronic wounds and sees wound care. She was seen yesterday in the wound care clinic. Patient was started on clindamycin but it does not appear that she has received any doses yet. does not believe that the patient has had any falls. No reported fevers. No other alleviating, precipitating or modifying factors Review of Systems unobtainable secondary to dementia Past Medical History Past Medical History: Dementia, GERD/Reflux, Hypertension, Pneumonia, Sleep Apnea/CPAP/BIPAP Additional Past Medical History / Comment(s): hx migraines,sjogrens,hx pn eumonia, hx kidney stones History of Any Multi-Drug Resistant Organisms: None Reported Past Surgical History: Section, Cholecystectomy, Hysterectomy, Joint Replacement Additional Past Surgical History / Comment(s): ariana knee and rt shoulder replacement, cataracts, surgery on left thumb and wrist, Past Anesthesia/Blood Transfusion Reactions: Previous Problems w/ Anesthesia Additional Past Anesthesia/Blood Transfusion Reaction / Comment(s): "almost aspirated" Past Psychological History: Anxiety Smoking Status: Unknown if ever smoked Past Alcohol Use History: None Reported Past Drug Use History: None Reported - Past Family History Father Family Medical History: Cancer Additional Family Medical History / Comment(s): colon cancer Medications and Allergies Home Medications Medication Instructions Recorded Confirmed Type Atorvastatin [Lipitor] 40 mg PO HS 06/28/14 02/17/24 History allopurinoL [Zyloprim] 300 mg PO DAILY 06/28/14 02/17/24 History Bacitracin Zinc Oint 1 applic TOPICAL DAILY #28 gm 12/26/23 02/17/24 Rx Acetaminophen Tab [Tylenol Tab] 500 mg PO Q4H PRN MDD 4gm 02/17/24 02/17/24 History Budesonide [Budesonide ER] 9 mg PO DAILY 02/17/24 02/17/24 History Cavilon No Sting Avila Film 1 applic TOPICAL DAILY PRN 02/17/24 02/17/24 History Cholestyramine (with Sugar) 4 gm PO DAILY@1200 02/17/24 02/17/24 History [Cholestyramine Packet] Escitalopram [Lexapro] 10 mg PO DAILY 02/17/24 02/17/24 History Furosemide [Lasix] 20 mg PO DAILY 02/17/24 02/17/24 History Elias Packet 1 packet PO BID 02/17/24 02/17/24 History Magnesium Oxide [Mag-Ox] 400 mg PO DAILY 02/17/24 02/17/24 History Medihoney 1 applic TOPICAL DAILY 02/17/24 02/17/24 History Metoprolol Succinate (ER) [Toprol 50 mg PO BID 02/17/24 02/17/24 History Xl] Nystatin [Nystop] 1 applic TOPICAL TID 02/17/24 02/17/24 History Potassium Chloride ER [K-Dur 20] 20 meq PO DAILY 02/17/24 02/17/24 History Silver Sulfadiazine [Silver 1 applic TOPICAL BID 02/17/24 02/17/24 History Sulfadiazine 1%] Spironolactone 50 mg PO DAILY 02/17/24 02/17/24 History Tolterodine ER [Detrol LA] 2 mg PO DAILY 02/17/24 02/17/24 History Zinc Oxide 20% Oint 1 applic TOPICAL DAILY PRN 02/17/24 02/17/24 History clindamycin HCL 300 mg PO TID 02/17/24 02/17/24 History hydrOXYzine HCL [Atarax] 10 mg PO QID PRN 02/17/24 02/17/24 History metFORMIN HCL [Glucophage] 500 mg PO BID 02/17/24 02/17/24 History traZODone HCL [Desyrel] 50 mg PO HS PRN 02/17/24 02/17/24 History Allergies Allergy/AdvReac Type Severity Reaction Status Date / Time No Known Allergies Allergy Verified 02/17/24 14:10 Physical Exam Vitals: Vital Signs Temp Pulse Resp BP Pulse Ox 02/17/24 14:31 54 L 18 116/73 97 02/17/24 13:26 56 L 18 124/65 97 08/28/24 11:38 60 18 116/66 95 02/17/24 10:22 58 L 18 125/75 95 02/17/24 07:31 99.0 F 56 L 18 143/73 96 Intake and Output 02/17/24 02/17/24 02/17/24 06:59 14:59 22:59 Other: Weight 117.934 kg Constitutional: No acute distress, conversant, pleasant Eyes:Anicteric sclerae, moist conjunctiva, no lid-lag, PERRLA, ENMT: Oropharynx clear, no erythema, exudates Neck: Supple, FROM, no masses, or JVD, No carotid bruits, No thyromegaly Lungs: Clear to auscultation, Clear to percussion, Normal respiratory effort, no accessory muscle use Cardiovascular: Heart regular in rate and rhythm, No murmurs, gallops, or rubs, No peripheral edema Abdominal: Soft, Nontender, no guarding, rebound or rigidity, Normoactive bowel sounds, No hepatomegaly, No splenomegaly, No palpable mass Skin: left lower extremity with wound 5 cm in diameter ulcer with surrounding erythema. Normal temperature, tone, texture, turgor, no induration, No subcutaneous nodules, No rash, lesions, No ulcers Extremities: No digital cyanosis, No clubbing, Pedal pulses intact and symmetrical, Radial pulses intact and symmetrical, No calf tenderness Psychiatric: Alert but disoriented Neuro: Generally weak Results CBC & Chem 7: 02/17/24 08:37 02/17/24 08:37 Labs: Abnormal Lab Results - Last 24 Hours (Table) 02/17/24 02/17/24 02/17/24 Range/Units 08:37 08:37 10:37 WBC 11.9 H (3.8-10.6) k/uL Plt Count 142 L (150-450) k/uL Neutrophils # 9.7 H (1.3-7.7) k/uL BUN 24 H (7-17) mg/dL Glucose 154 H (74-99) mg/dL Urine Appearance Cloudy H (Clear) Urine Protein Trace H (Negative) Urine Nitrite Positive H (Negative) Ur Leukocyte Esterase Moderate H (Negative) Urine RBC 9 H (0-5) /hpf Urine WBC 37 H (0-5) /hpf Urine Bacteria Moderate H (None) /hpf Urine Mucus Rare H (None) /hpf Assessment and Plan Plan: urinary tract infection with evidence of pyelonephritis Send urine cultures and blood cultures IV antibiotics with ceftriaxone 1 g IV daily Renal ultrasound to rule out hydronephrosis or nephrolithiasis Follow clinically left lower extremity cellulitis Start clindamycin 300 mg every 6 hours by mouth Monitor clinically diabetes type 2 Sliding scale insulin with blood sugar checks every before meals and at bedtime Hold metformin hypertension Hyperlipidemia Chronic venous stasis All stable Resume meds General weakness likely secondary to above PT and OT Admit to inpatient, expected length of stay more than 2 midnights
[2024-02-17 17:11] LABS: Glucose,Whole Blood 121 mg/dL (70-110)
[2024-02-17] MEDS: INSULIN ASPART (NovoLOG) 100 UNIT/ML VIAL SQ SCH (17:12)
[2024-02-17] MEDS: CLINDAMYCIN 150 MG CAP PO SCH (17:26)
--- NOTE | 2024-02-17 18:37 | US ---
EXAMINATION TYPE: US renals and bladder DATE OF EXAM: 02/17/2024 COMPARISON: NONE CLINICAL INDICATION: Female, 78 years old with history of pyelo; Right side pain. AMS. EXAM MEASUREMENTS: Right Kidney: 8.3 x 4.9 x 4.3 cm Estimated Left Kidney: 9.5 x 4.9 x 5.4 cm extremely limited due to patient body habitus Right Kidney: Limited visualization Left Kidney: No prominent masses or lesions seen, lower pole not well seen. Echogenic focus seen, no nshadowing = 0.6 cm Bladder: not visualized Bilateral Jets not seen IMPRESSION: 1. Echogenic foci within the mid left kidney measuring 0.6 cm may be a nonobstructing renal stone.
[2024-02-17 20:14] LABS: Glucose,Whole Blood 154 mg/dL (70-110)
[2024-02-17] MEDS ORDERED: ATORVASTATIN 40 MG TAB ONE (21:00)
[2024-02-17] MEDS ORDERED: METOPROLOL SUCCINATE (ER) 50 MG TAB.ER.24H PO ONE (21:00)
[2024-02-17] MEDS ORDERED: CLINDAMYCIN 150 MG CAP ONE (22:00)
[2024-02-17] MEDS ORDERED: ACETAMINOPHEN TAB 325 MG TAB ONE (22:54)
[2024-02-18] MEDS: METOPROLOL SUCCINATE (ER) 50 MG TAB.ER.24H PO SCH (05:18)
[2024-02-18] MEDS: ATORVASTATIN 40 MG TAB PO SCH (05:18)
[2024-02-18 06:03] LABS: Glucose,Whole Blood 182 mg/dL (70-110)
[2024-02-18] MEDS: OXYBUTYNIN XL 5 MG TAB.ER.24 PO SCH (08:39)
[2024-02-18] MEDS: ESCITALOPRAM 10 MG TAB PO SCH (08:39)
[2024-02-18] MEDS: allopurinoL 300 MG TAB PO SCH (08:39)
[2024-02-18] MEDS ORDERED: cefTRIAXone IN SWFI 1,000 MG/10 ML SYRINGE IVP SCH (09:00)
[2024-02-18] MEDS: BUDESONIDE 9 MG PO SCH (09:01)
[2024-02-18] MEDS: BACITRACIN ZINC 500 UNIT/GM OINT 28.4 GM TUBE TOPICAL SCH (10:14)
[2024-02-18 10:59] LABS: Basophils # (A) 0.04 X 10*3/uL (0.00-0.10); Basophils % (A) 0.4 %; Eosinophils # (A) 0.08 X 10*3/uL (0.04-0.35); Eosinophils % (A) 0.8 %; HCT 39.7 % (37.2-46.3); Lymphocytes # (A) 1.37 X 10*3/uL (0.90-5.00); MCH 31.2 pg (27.0-32.0); MCHC 32.7 g/dL (32.0-37.0); MCV 95.2 FL (80.0-97.0); Mean Platelet Volume 10.4 FL (9.5-12.2); Monocytes # (A) 1.05 X 10*3/uL (0.20-1.00); Monocytes % (A) 10.7 %; NRBC Per 100 WBC 0 X 10*3/uL (0.00-0.01); Neutrophils # (A) 7.16 X 10*3/uL (1.80-7.70); Neutrophils % (A) 73.1 %; Platelet Count 201 X 10*3/uL (140-440); RBC 4.17 X 10*6/uL (4.10-5.20); RDW 12.8 % (11.5-14.5)
[2024-02-18 11:17] LABS: BUN/Creat Ratio 24.29 Ratio (12.00-20.00); Calcium 8.6 mg/dL (8.7-10.3); Carbon Dioxide 23.1 mmol/L (21.6-31.8); Chloride 107 mmol/L (96-109); Glucose 158 mg/dL (70-110); Potassium 3.9 mmol/L (3.5-5.5); Sodium 142 mmol/L (135-145)
[2024-02-18 11:28] LABS: Glucose,Whole Blood 167 mg/dL (70-110)
[2024-02-18] MEDS: CHOLESTYRAMINE (WITH SUGAR) 4 GM PACKET PO SCH (13:16)
--- NOTE | 2024-02-18 15:16 | P.PN ---
Subjective Progress Note Date: 02/18/24 Principal diagnosis: back pain patient improved but according to her she is not back to baseline. She still generally weak, left lower extremity wound was undressed and examined. Still look red with surrounding edema in the left leg. Objective - Vital Signs Vital signs: Vital Signs Temp 97.8 F 02/18/24 07:22 Pulse 76 02/18/24 08:30 Resp 17 02/18/24 08:30 BP 125/61 02/18/24 07:22 Pulse Ox 94 L 02/18/24 07:22 FiO2 Intake & Output 02/17/24 02/18/24 02/18/24 18:59 06:59 18:59 Output Total 500 Balance -500 Weight 117.934 kg 117.934 kg Output: Urine 500 Other: Voiding Method External Catheter # Voids 2 - Exam Constitutional: No acute distress, conversant, pleasant Eyes:Anicteric sclerae, moist conjunctiva, no lid-lag, PERRLA, ENMT: Oropharynx clear, no erythema, exudates Neck: Supple, FROM, no masses, or JVD, No carotid bruits, No thyromegaly Lungs: Clear to auscultation, Clear to percussion, Normal respiratory effort, no accessory muscle use Cardiovascular: Heart regular in rate and rhythm, No murmurs, gallops, or rubs, No peripheral edema Abdominal: Soft, Nontender, no guarding, rebound or rigidity, Normoactive bowel sounds, No hepatomegaly, No splenomegaly, No palpable mass Skin: left lower extremity with wound 5 cm in diameter ulcer with surrounding erythema. Normal temperature, tone, texture, turgor, no induration, No subcutaneous nodules, No rash, lesions, No ulcers Extremities: No digital cyanosis, No clubbing, Pedal pulses intact and symmetrical, Radial pulses intact and symmetrical, No calf tenderness Psychiatric: Alert but disoriented Neuro: Generally weak - Labs CBC & Chem 7: 02/18/24 06:09 02/18/24 06:09 Labs: Abnormal Lab Results - Last 24 Hours (Table) 02/17/24 02/17/24 02/18/24 Range/Units 17:09 20:12 06:01 Immature Gran # (0.00-0.04) X 10*3/uL Monocytes # (0.20-1.00) X 10*3/uL BUN/Creatinine Ratio (12.00-20.00) Ratio Glucose (70-110) mg/dL POC Glucose (mg/dL) 121 H 154 H 182 H (70-110) mg/dL Calcium (8.7-10.3) mg/dL 02/18/24 02/18/24 02/18/24 Range/Units 06:09 06:09 11:26 Immature Gran # 0.10 H (0.00-0.04) X 10*3/uL Monocytes # 1.05 H (0.20-1.00) X 10*3/uL BUN/Creatinine Ratio 24.29 H (12.00-20.00) Ratio Glucose 158 H (70-110) mg/dL POC Glucose (mg/dL) 167 H (70-110) mg/dL Calcium 8.6 L (8.7-10.3) mg/dL Assessment and Plan Plan: urinary tract infection with evidence of pyelonephritis Send urine cultures and blood cultures--pending IV antibiotics with ceftriaxone 1 g IV daily Renal ultrasound showed nonobstructing left-sided stone. no hydronephrosis. Follow clinically left lower extremity cellulitis continue clindamycin 300 mg every 6 hours by mouth Monitor clinically diabetes type 2 Sliding scale insulin with blood sugar checks every before meals and at bedtime Hold metformin hypertension Hyperlipidemia Chronic venous stasis All stable Resume meds General weakness likely secondary to above PT and OT anticipate discharge in 1-2 days.
[2024-02-18 16:34] LABS: Glucose,Whole Blood 131 mg/dL (70-110)
[2024-02-18 20:05] LABS: Glucose,Whole Blood 140 mg/dL (70-110)
[2024-02-18] MEDS: INSULIN ASPART (NovoLOG) 100 UNIT/ML VIAL SQ SCH (21:52)
[2024-02-19 06:24] LABS: Glucose,Whole Blood 172 mg/dL (70-110)
[2024-02-19 11:48] LABS: Glucose,Whole Blood 162 mg/dL (70-110)
--- NOTE | 2024-02-19 12:38 | P.PN ---
Subjective Progress Note Date: 02/19/24 Principal diagnosis: back pain patient doing well, no overnight events or complaints. No fevers reported. Objective - Vital Signs Vital signs: Vital Signs Temp 98.4 F 02/19/24 07:29 Pulse 68 02/19/24 07:29 Resp 20 02/19/24 07:29 BP 134/73 02/19/24 07:29 Pulse Ox 95 02/19/24 07:29 FiO2 Intake & Output 02/18/24 02/19/24 02/19/24 18:59 06:59 18:59 Output Total 850 1400 Balance -850 -1400 Output: Urine 850 1400 Other: Voiding Method External Catheter External Catheter External Catheter # Voids 2 - Exam Constitutional: No acute distress, conversant, pleasant Eyes:Anicteric sclerae, moist conjunctiva, no lid-lag, PERRLA, ENMT: Oropharynx clear, no erythema, exudates Neck: Supple, FROM, no masses, or JVD, No carotid bruits, No thyromegaly Lungs: Clear to auscultation, Clear to percussion, Normal respiratory effort, no accessory muscle use Cardiovascular: Heart regular in rate and rhythm, No murmurs, gallops, or rubs, No peripheral edema Abdominal: Soft, Nontender, no guarding, rebound or rigidity, Normoactive bowel sounds, No hepatomegaly, No splenomegaly, No palpable mass Skin: left lower extremity with wound 5 cm in diameter ulcer with surrounding erythema. Normal temperature, tone, texture, turgor, no induration, No subcutaneous nodules, No rash, lesions, No ulcers Extremities: No digital cyanosis, No clubbing, Pedal pulses intact and symmetrical, Radial pulses intact and symmetrical, No calf tenderness Psychiatric: Alert but disoriented Neuro: Generally weak - Labs CBC & Chem 7: 02/18/24 06:09 02/18/24 06:09 Labs: Abnormal Lab Results - Last 24 Hours (Table) 02/18/24 02/18/24 02/18/24 Range/Units 11:26 16:33 20:04 POC Glucose (mg/dL) 167 H 131 H 140 H (70-110) mg/dL 02/19/24 Range/Units 06:22 POC Glucose (mg/dL) 172 H (70-110) mg/dL Microbiology - Last 24 Hours (Table) 02/17/24 16:09 Urine Culture - Final Urine,Clean Catch 02/17/24 16:38 Blood Culture - Preliminary Blood Assessment and Plan Plan: urinary tract infection with evidence of pyelonephritis Urine cultures negative Blood cultures pending still Continue IV antibiotics with ceftriaxone 1 g IV daily Renal ultrasound showed nonobstructing left-sided stone. no hydronephrosis. Follow clinically left lower extremity cellulitis continue clindamycin 300 mg every 6 hours by mouth Monitor clinically diabetes type 2 Sliding scale insulin with blood sugar checks every before meals and at bedtime Hold metformin hypertension Hyperlipidemia Chronic venous stasis All stable Resume meds General weakness likely secondary to above PT and OT anticipate discharge in am.
[2024-02-19 17:08] LABS: Glucose,Whole Blood 147 mg/dL (70-110)
[2024-02-19 20:16] LABS: Glucose,Whole Blood 152 mg/dL (70-110)
[2024-02-20 05:55] LABS: Glucose,Whole Blood 178 mg/dL (70-110)
[2024-02-20] MEDS: ACETAMINOPHEN TAB 325 MG TAB PO PRN (06:30)
[2024-02-20] MEDS ORDERED: VANCOMYCIN IV PER PHARMACY 1 EACH MISC MISCELLANE PRN (11:30)
[2024-02-20 11:56] LABS: Glucose,Whole Blood 170 mg/dL (70-110)
[2024-02-20] MEDS: VANCOMYCIN 2,250 MG in SODIUM CHLORIDE 0.9% 500 ML 500 ML IVPB ONE (13:31)
--- NOTE | 2024-02-20 16:02 | P.PN ---
Subjective Progress Note Date: 02/20/24 Principal diagnosis: back pain patient spiked a fever of 100.6 over the past 24 hours. No other symptoms reported. No other overnight events. Objective - Vital Signs Vital signs: Vital Signs Temp 98.8 F 02/20/24 13:57 Pulse 67 02/20/24 13:57 Resp 18 02/20/24 13:57 BP 125/72 02/20/24 13:57 Pulse Ox 97 02/20/24 13:57 FiO2 Intake & Output 02/19/24 02/20/24 02/20/24 18:59 06:59 18:59 Output Total 600 1100 Balance -600 -1100 Output: Urine 600 1100 Other: Voiding Method External Catheter External Catheter External Catheter - Exam Constitutional: No acute distress, conversant, pleasant Eyes:Anicteric sclerae, moist conjunctiva, no lid-lag, PERRLA, ENMT: Oropharynx clear, no erythema, exudates Neck: Supple, FROM, no masses, or JVD, No carotid bruits, No thyromegaly Lungs: Clear to auscultation, Clear to percussion, Normal respiratory effort, no accessory muscle use Cardiovascular: Heart regular in rate and rhythm, No murmurs, gallops, or rubs, No peripheral edema Abdominal: Soft, Nontender, no guarding, rebound or rigidity, Normoactive bowel sounds, No hepatomegaly, No splenomegaly, No palpable mass Skin: left lower extremity with wound 5 cm in diameter ulcer with surrounding erythema. Normal temperature, tone, texture, turgor, no induration, No subcutaneous nodules, No rash, lesions, No ulcers Extremities: No digital cyanosis, No clubbing, Pedal pulses intact and symmetrical, Radial pulses intact and symmetrical, No calf tenderness Psychiatric: Alert but disoriented Neuro: Generally weak - Labs CBC & Chem 7: 02/18/24 06:09 02/18/24 06:09 Labs: Abnormal Lab Results - Last 24 Hours (Table) 02/19/24 02/19/24 02/20/24 Range/Units 17:07 20:15 05:53 POC Glucose (mg/dL) 147 H 152 H 178 H (70-110) mg/dL 02/20/24 Range/Units 11:55 POC Glucose (mg/dL) 170 H (70-110) mg/dL Microbiology - Last 24 Hours (Table) 02/17/24 16:38 Blood Culture - Preliminary Blood Assessment and Plan Plan: urinary tract infection with evidence of pyelonephritis recurrent fever Urine cultures negative Blood cultures negative, we'll repeat patient spiked fever on 02/19, will discontinue clindamycin, and vancomycin,continue ceftriaxone, consult ID Renal ultrasound showed nonobstructing left-sided stone. no hydronephrosis. Follow clinically left lower extremity cellulitis/ patient received clindamycin till 02/19 Vanco 02/19 ongoing Seems to improve diabetes type 2 Sliding scale insulin with blood sugar checks every before meals and at bedtime Hold metformin hypertension Hyperlipidemia Chronic venous stasis All stable Resume meds General weakness likely secondary to above PT and OT
[2024-02-20 17:04] LABS: Glucose,Whole Blood 178 mg/dL (70-110)
[2024-02-20 20:40] LABS: Glucose,Whole Blood 182 mg/dL (70-110)
[2024-02-21 01:57] LABS: Appearance,Urine Cloudy (Clear); Bacteria,Urine Rare /hpf; Bilirubin,Urine Negative (Negative); Blood,Urine Negative (Negative); Budding Yeast,Urine Rare /hpf; Color,Urine Yellow; Glucose,Urine (UA) Negative (Negative); Ketones,Urine Negative (Negative); Leukocyte Esterase,Urine Negative (Negative); Mucus,Urine Rare /hpf; Nitrite,Urine Negative (Negative); Protein,Urine Negative (Negative); RBC,Urine 1 /hpf (0-5); Squamous Epithelial Cell,Urine 4 /hpf (0-4); WBC,Urine 6 /hpf (0-5)
[2024-02-21] MEDS: ACETAMINOPHEN TAB 500 MG TAB PO PRN (03:15)
[2024-02-21] MEDS: VANCOMYCIN 2,000 MG in SODIUM CHLORIDE 0.9% 500 ML 500 ML IVPB SCH (05:18)
[2024-02-21 05:53] LABS: Glucose,Whole Blood 169 mg/dL (70-110)
[2024-02-21 08:40] LABS: ALT 17 U/L (4-34); AST 28 U/L (14-36); African American GFR (CKD) >90 (>60 ml/min/1.73 sqM); Albumin 2.8 g/dL (3.5-5.0); Albumin/Globulin Ratio 1.2; Alkaline Phosphatase 53 U/L (38-126); Anion Gap 5 mmol/L; Blood Urea Nitrogen 9 mg/dL (7-17); Calcium 8.6 mg/dL (8.4-10.2); Carbon Dioxide 21 mmol/L (22-30); Chloride 108 mmol/L (98-107); Globulin 2.4 g/dL; Glucose 158 mg/dL (74-99); Magnesium 1.6 mg/dL (1.6-2.3); Non-African American GFR(CKD) >90 (>60 ml/min/1.73 sqM); Potassium 3.5 mmol/L (3.5-5.1); Sodium 134 mmol/L (137-145); Total Protein 5.2 g/dL (6.3-8.2)
[2024-02-21 08:44] LABS: Basophils % (A) 1 %; Eosinophils # (A) 0.2 k/uL (0-0.7); Eosinophils % (A) 2 %; HCT 40.2 % (34.0-46.0); Lymphocytes # (A) 0.8 k/uL (1.0-4.8); Lymphocytes % (A) 13 %; MCH 30.4 pg (25.0-35.0); MCHC 32.3 g/dL (31.0-37.0); MCV 94.1 fL (80.0-100.0); Mean Platelet Volume 8.8; Monocytes # (A) 0.6 k/uL (0-1.0); Monocytes % (A) 9 %; Neutrophils # (A) 4.8 k/uL (1.3-7.7); Neutrophils % (A) 74 %; Platelet Count 212 k/uL (150-450); RBC 4.27 m/uL (3.80-5.40); RDW 12.7 % (11.5-15.5); WBC 6.5 k/uL (3.8-10.6)
[2024-02-21 11:41] LABS: Glucose,Whole Blood 180 mg/dL (70-110)
[2024-02-21 14:47] VITALS: BMI 43.2
--- NOTE | 2024-02-21 14:48 | P.PN ---
Subjective Progress Note Date: 02/21/24 Principal diagnosis: back pain according to nursing staff patient is participating better with her care, however she is reluctant to ambulate off of the bed. no fevers over the past 24 hours. Objective - Vital Signs Vital signs: Vital Signs Temp 97.9 F 02/21/24 06:58 Pulse 67 02/21/24 06:58 Resp 18 02/21/24 06:58 BP 121/69 02/21/24 06:58 Pulse Ox 93 L 02/21/24 06:58 FiO2 Intake & Output 02/20/24 02/21/24 02/21/24 18:59 06:59 18:59 Output Total 1100 300 Balance -1100 -300 Output: Urine 1100 300 Other: Voiding Method External Catheter External Catheter External Catheter - Exam Constitutional: No acute distress, conversant, pleasant Eyes:Anicteric sclerae, moist conjunctiva, no lid-lag, PERRLA, ENMT: Oropharynx clear, no erythema, exudates Neck: Supple, FROM, no masses, or JVD, No carotid bruits, No thyromegaly Lungs: Clear to auscultation, Clear to percussion, Normal respiratory effort, no accessory muscle use Cardiovascular: Heart regular in rate and rhythm, No murmurs, gallops, or rubs, No peripheral edema Abdominal: Soft, Nontender, no guarding, rebound or rigidity, Normoactive bowel sounds, No hepatomegaly, No splenomegaly, No palpable mass Skin: left lower extremity with wound 5 cm in diameter ulcer with surrounding erythema. Normal temperature, tone, texture, turgor, no induration, No s ubcutaneous nodules, No rash, lesions, No ulcers Extremities: No digital cyanosis, No clubbing, Pedal pulses intact and symmetrical, Radial pulses intact and symmetrical, No calf tenderness Psychiatric: Alert but disoriented Neuro: Generally weak - Labs CBC & Chem 7: 02/21/24 06:35 02/21/24 06:35 Labs: Abnormal Lab Results - Last 24 Hours (Table) 02/20/24 02/20/24 02/21/24 Range/Units 17:02 20:39 00:45 Lymphocytes # (1.0-4.8) k/uL Sodium (137-145) mmol/L Chloride (98-107) mmol/L Carbon Dioxide (22-30) mmol/L Glucose (74-99) mg/dL POC Glucose (mg/dL) 178 H 182 H (70-110) mg/dL Total Protein (6.3-8.2) g/dL Albumin (3.5-5.0) g/dL Urine Appearance Cloudy H (Clear) Urine WBC 6 H (0-5) /hpf Urine Bacteria Rare H (None) /hpf Urine Mucus Rare H (None) /hpf Urine Yeast (Budding) Rare H (None) /hpf 02/21/24 02/21/24 02/21/24 Range/Units 05:51 06:35 06:35 Lymphocytes # 0.8 L (1.0-4.8) k/uL Sodium 134 L (137-145) mmol/L Chloride 108 H (98-107) mmol/L Carbon Dioxide 21 L (22-30) mmol/L Glucose 158 H (74-99) mg/dL POC Glucose (mg/dL) 169 H (70-110) mg/dL Total Protein 5.2 L (6.3-8.2) g/dL Albumin 2.8 L (3.5-5.0) g/dL Urine Appearance (Clear) Urine WBC (0-5) /hpf Urine Bacteria (None) /hpf Urine Mucus (None) /hpf Urine Yeast (Budding) (None) /hpf 02/21/24 Range/Units 11:37 Lymphocytes # (1.0-4.8) k/uL Sodium (137-145) mmol/L Chloride (98-107) mmol/L Carbon Dioxide (22-30) mmol/L Glucose (74-99) mg/dL POC Glucose (mg/dL) 180 H (70-110) mg/dL Total Protein (6.3-8.2) g/dL Albumin (3.5-5.0) g/dL Urine Appearance (Clear) Urine WBC (0-5) /hpf Urine Bacteria (None) /hpf Urine Mucus (None) /hpf Urine Yeast (Budding) (None) /hpf Microbiology - Last 24 Hours (Table) 02/17/24 16:38 Blood Culture - Preliminary Blood Assessment and Plan Plan: urinary tract infection with evidence of pyelonephritis recurrent fever Urine cultures negative patient spiked fever on 02/19, was on clindamycin--d/christie, added vancomycin instead, continue ceftriaxone, consult ID Blood cultures repeated 02/19 Renal ultrasound showed nonobstructing left-sided stone. no hydronephrosis. Follow clinically left lower extremity cellulitis patient received clindamycin till 02/19 Vanco 02/19 ongoing case discussed with infectious disease, patient can possibly be discharged on doxycycline. Seems to improve diabetes type 2 Sliding scale insulin with blood sugar checks every before meals and at bedtime Hold metformin hypertension Hyperlipidemia Chronic venous stasis All stable Resume meds General weakness likely secondary to above baseline is able to walk with a walker, [facility] would not take her back unless she is back to baseline. PT and OT evaluation pending.
--- NOTE | 2024-02-21 15:44 | P.CONS ---
History of Present Illness - Reason for Consult Consult date: 02/21/24 Fever Requesting physician: Jaron Prakash - Chief Complaint Fever x 2 days - History of Present Illness Patient is 78-year-old female past medical history present for hypertension reflux dementia pneumonia sleep apnea has been brought into the hospital 4 days ago for evaluation of right flank pain symptoms started the night before presentation to the hospital no real history of any nausea vomiting or high-grade fever on presentation to the hospital the patient did have low- grade fever of 99 F patient did spike a fever of 100.6 on 02/19/2024 that has p rompted this consultation yesterday, patient initial workup shows a white count of 11.9 creatinine was 0.67 liver isms are normal did have a positive UA and patient has been treated with Rocephin and clindamycin for UTI and left lower extremity cellulitis vancomycin was added yesterday and clindamycin was stopped pending evaluation this morning. At the time my evaluation the patient is awake alert oriented x 1 only elevated good historian no family member at the bedside no clear history of nausea vomiting patient currently do not have any Gibbs catheter left lower extremity swelling that is slightly decreased per the nursing staff and there was no drainage Review of Systems Positive points has been mentioned in HPI complete review could not be obtained because of his underlying mental status Past Medical History Past Medical History: Dementia, GERD/Reflux, Hypertension, Pneumonia, Sleep Apnea/CPAP/BIPAP Additional Past Medical History / Comment(s): hx migraines,sjogrens,hx pneumonia, hx kidney stones History of Any Multi-Drug Resistant Organisms: None Reported Past Surgical History: Section, Cholecystectomy, Hysterectomy, Joint R eplacement Additional Past Surgical History / Comment(s): ariana knee and rt shoulder replacement, cataracts, surgery on left thumb and wrist, Past Anesthesia/Blood Transfusion Reactions: Previous Problems w/ Anesthesia Additional Past Anesthesia/Blood Transfusion Reaction / Comm: "almost aspirated" Past Psychological History: Anxiety Smoking Status: Unknown if ever smoked Past Alcohol Use History: None Reported Past Drug Use History: None Reported - Past Family History Father Family Medical History: Cancer Additional Family Medical History / Comment(s): colon cancer Medications and Allergies Home Medications Medication Instructions Recorded Confirmed Type Atorvastatin [Lipitor] 40 mg PO HS 06/28/14 02/17/24 History allopurinoL [Zyloprim] 300 mg PO DAILY 06/28/14 02/17/24 History Acetaminophen Tab [Tylenol] 500 mg PO Q4H PRN MDD 4gm 02/17/24 02/17/24 History Budesonide [Budesonide ER] 9 mg PO DAILY 02/17/24 02/17/24 History Cholestyramine (with Sugar) 4 gm PO DAILY@1200 02/17/24 02/17/24 History [Cholestyramine Packet] Escitalopram [Lexapro] 10 mg PO DAILY 02/17/24 02/17/24 History Elias Packet 1 packet PO BID 02/17/24 02/17/24 History Magnesium Oxide [Mag-Ox] 400 mg PO DAILY 02/17/24 02/17/24 History Metoprolol Succinate (ER) [Toprol 50 mg PO BID 02/17/24 02/17/24 History XL] Spironolactone 50 mg PO DAILY 02/17/24 02/17/24 History Tolterodine ER [Detrol LA] 2 mg PO DAILY 02/17/24 02/17/24 History hydrOXYzine HCL [Atarax] 10 mg PO QID PRN 02/17/24 02/17/24 History metFORMIN HCL [Glucophage] 500 mg PO BID 02/17/24 02/17/24 History traZODone HCL [Desyrel] 50 mg PO HS PRN 02/17/24 02/17/24 History Doxycycline Hyclate 100 mg PO BID 7 Days #14 tab 02/24/24 Rx Allergies Allergy/AdvReac Type Severity Reaction Status Date / Time No Known Allergies Allergy Verified 02/17/24 14:10 Physical Exam Vitals: Vital Signs Temp Pulse Resp BP Pulse Ox 02/21/24 06:58 97.9 F 67 18 121/69 93 L 02/21/24 04:22 98.6 F 02/21/24 00:40 99.2 F 68 16 124/65 96 02/20/24 19:12 99.2 F 64 18 132/79 95 02/20/24 13:57 98.8 F 67 18 125/72 97 Intake and Output 02/20/24 02/21/24 02/21/24 22:59 06:59 14:59 Output Total 1100 300 Balance -1100 -300 Output: Urine 1100 300 Other: Voiding Method External Catheter External Catheter GENERAL DESCRIPTION: Elderly female lying in bed, no distress. No tachypnea or accessory muscle of respiration use. HEENT: Shows Pallor , no scleral icterus. Oral mucous membrane is dry. No pharyngeal erythema or thrush NECK: Trachea central, no thyromegaly. LUNGS: Unlabored breathing. Clear to auscultation anteriorly. No wheeze or crackle. HEART: S1, S2, regular rate and rhythm. No loud murmur ABDOMEN: Soft, no tenderness , guarding or rigidity, no organomegaly EXTREMITIES: Left lower extremity with an area of swelling and redness no pu rulent drainage SKIN: No rash, no masses palpable. NEUROLOGICAL: The patient is awake, alert, oriented x1, mood and affect normal. Results CBC & Chem 7: 02/21/24 06:35 02/23/24 05:05 Labs: Abnormal Lab Results - Last 24 Hours (Table) 02/20/24 02/20/24 02/21/24 Range/Units 17:02 20:39 00:45 Lymphocytes # (1.0-4.8) k/uL Sodium (137-145) mmol/L Chloride (98-107) mmol/L Carbon Dioxide (22-30) mmol/L Glucose (74-99) mg/dL POC Glucose (mg/dL) 178 H 182 H (70-110) mg/dL Total Protein (6.3-8.2) g/dL Albumin (3.5-5.0) g/dL Urine Appearance Cloudy H (Clear) Urine WBC 6 H (0-5) /hpf Urine Bacteria Rare H (None) /hpf Urine Mucus Rare H (None) /hpf Urine Yeast (Budding) Rare H (None) /hpf 02/21/24 02/21/24 02/21/24 Range/Units 05:51 06:35 06:35 Lymphocytes # 0.8 L (1.0-4.8) k/uL Sodium 134 L (137-145) mmol/L Chloride 108 H (98-107) mmol/L Carbon Dioxide 21 L (22-30) mmol/L Glucose 158 H (74-99) mg/dL POC Glucose (mg/dL) 169 H (70-110) mg/dL Total Protein 5.2 L (6.3-8.2) g/dL Albumin 2.8 L (3.5-5.0) g/dL Urine Appearance (Clear) Urine WBC (0-5) /hpf Urine Bacteria (None) /hpf Urine Mucus (None) /hpf Urine Yeast (Budding) (None) /hpf 02/21/24 Range/Units 11:37 Lymphocytes # (1.0-4.8) k/uL Sodium (137-145) mmol/L Chloride (98-107) mmol/L Carbon Dioxide (22-30) mmol/L Glucose (74-99) mg/dL POC Glucose (mg/dL) 180 H (70-110) mg/dL Total Protein (6.3-8.2) g/dL Albumin (3.5-5.0) g/dL Urine Appearance (Clear) Urine WBC (0-5) /hpf Urine Bacteria (None) /hpf Urine Mucus (None) /hpf Urine Yeast (Budding) (None) /hpf Microbiology - Last 24 Hours (Table) 02/17/24 16:38 Blood Culture - Preliminary Blood Assessment and Plan (1) Fever Status: Acute Code(s): R50.9 - FEVER, UNSPECIFIED SNOMED Code(s): 101024331 (2) Left leg cellulitis Status: Acute Code(s): L03.116 - CELLULITIS OF LEFT LOWER LIMB SNOMED Code(s): 77930691890986222 (3) Pyelonephritis Status: Acute Code(s): N12 - TUBULO-INTERSTITIAL NEPHRITIS, NOT SPCF ACUTE OR CHRONIC SNOMED Code(s): 20382652 Plan: 1patient with a fever source is multifactorial in this patient initially presented hospital with the right flank pain did have positive UA concerning for pyelonephritis, patient urine culture reported negative repeat UA done last night did show overall improvement patient also have a left lower extremity cellulitis that seem to have failed to respond to the clindamycin possible MRSA. 2recommend continue patient on vancomycin pharmacy to dose and Rocephin for the 24-hour and if no recurrence of fever may be able to finish therapy with oral antibiotics on discharge We will follow on clinical condition and cultures to further adjust medication if needed Thank you for this consultation we will follow the patient along with you Dictation was produced using [email or web address] dictation software. please excuse any grammatical, word or spelling errors. Time with Patient: Greater than 30
[2024-02-21 17:13] LABS: Glucose,Whole Blood 138 mg/dL (70-110)
[2024-02-21 21:54] LABS: Glucose,Whole Blood 171 mg/dL (70-110)
[2024-02-21] MEDS: NAPROXEN 250 MG TAB PO STA (22:56)
[2024-02-22 06:22] LABS: Glucose,Whole Blood 178 mg/dL (70-110)
[2024-02-22 11:14] LABS: Glucose,Whole Blood 228 mg/dL (70-110)
--- NOTE | 2024-02-22 13:22 | P.PN ---
Subjective Progress Note Date: 02/22/24 Hospital Course: 78-year-old female with history of advanced dementia, hypertension, dyslipidem ia, type 2 diabetes, depression, gout presenting with right flank pain. Initially admitted for urinary tract infection secondary to acute pyelonephritis and left lower extremity cellulitis. Initial laboratory workup showed white count of 11.9, rest of the labs were unremarkable. Urinalysis positive for nitrites and leukocyte esterase. Urine cultures shows no growth, blood cultures shows no growth. ID was also consulted. Renal ultrasound showed echogenic foci within the mid left kidney, possible nonobstructive renal stone. Patient was initially on broad-spectrum antibiotics, was taken off of vancomycin and started spiking fevers. Now restarted back on vancomycin and continued on ceftriaxone. Patient will likely need placement. Subjective: Patient seen and examined at bedside. No acute events overnight. Denies any new complaints Pertinent positives and negatives as discussed above, a complete review of systems was performed and all other systems are negative. Vitals Signs Reviewed. General: Nontoxic, no distress, appears at stated age Derm: Warm, dry, minimal left lower extremity erythema Head: Atraumatic, normocephalic, symmetric Eyes: EOMI, no lid lag, anicteric sclera Mouth: No lip lesion, mucus membranes moist Cardiovascular: S1S2 reg, no murmur Lungs: CTA bilateral, no rhonchi, no rales, no accessory muscle use Abdominal: Soft, nontender to palpation, no guarding, no appreciable organomegaly Ext: No gross muscle atrophy, no edema, no contractures Neuro: CN II-XI grossly intact, no focal neuro deficits Psych: Alert, oriented x 0, appropriate affect Data Reviewed Today: Pertinent Labs: No new labs Imaging: No new imaging Assessment and Plan: Active: Urinary tract infection, present on admission Left lower extremity cellulitis, present on admission -Cultures negative -Continue IV vancomycin, monitor for renal toxicity -IV ceftriaxone 1 g every 24 hours -Discussed management with ID, possible discharge on oral doxycycline for 1 week when the patient has placement -Wound care has been consulted Unclear why patient is on oral budesonide, possible history of colitis? -Continued for now Type 2 diabetes -Continue sliding scale insulin, monitor for hypoglycemia Chronic: Depression Advanced dementia Gout Dyslipidemia Urinary incontinence Hypertension DVT ppx: Lovenox Code status: Full code Anticipated discharge place: Subacute rehab Anticipated discharge time: Pending bed availability Objective - Vital Signs Vital signs: Vital Signs Temp 98.5 F 02/22/24 07:30 Pulse 60 02/22/24 08:00 Resp 16 02/22/24 08:00 BP 158/75 02/22/24 07:30 Pulse Ox 97 02/22/24 07:30 FiO2 Intake & Output 02/21/24 02/22/24 02/22/24 18:59 06:59 18:59 Intake Total 650 Output Total 100 Balance 550 Weight 117.934 kg Intake: Oral 650 Output: Urine 100 Other: Voiding Method External Catheter External Catheter External Catheter # Voids 2 6 - Labs CBC & Chem 7: 02/21/24 06:35 02/21/24 06:35 Labs: Abnormal Lab Results - Last 24 Hours (Table) 02/21/24 02/21/24 02/22/24 Range/Units 17:11 21:50 06:21 POC Glucose (mg/dL) 138 H 171 H 178 H (70-110) mg/dL 02/22/24 Range/Units 11:10 POC Glucose (mg/dL) 228 H (70-110) mg/dL Microbiology - Last 24 Hours (Table) 02/20/24 16:25 Blood Culture - Preliminary Blood
[2024-02-22] MEDS: SPIRONOLACTONE 25 MG TAB PO SCH (15:30)
[2024-02-22 16:53] LABS: Glucose,Whole Blood 180 mg/dL (70-110)
[2024-02-22 20:50] LABS: Glucose,Whole Blood 190 mg/dL (70-110)
--- NOTE | 2024-02-22 21:44 | P.PN ---
Subjective Progress Note Date: 02/22/24 Principal diagnosis: Reason for follow-up is UTI and left leg cellulitis Patient is 78-year-old female past medical history present for hypertension reflux dementia pneumonia sleep apnea has been brought into the hospital for evaluation of right flank pain has been diagnosed with right-sided UTI pyelonephritis and left leg cellulitis. On today's evaluation that is 02/22/2024, the patient did have resolution of her fever and is afebrile today patient is more awake and alert and back to her baseline per the family at the bedside no chest pain shortness with or cough pain to the left leg has decreased intensity. No new lab has been obtained today blood culture has been negative Objective - Vital Signs Vital signs: Vital Signs Temp 98.5 F 02/22/24 07:30 Pulse 60 02/22/24 08:00 Resp 16 02/22/24 08:00 BP 158/75 02/22/24 07:30 Pulse Ox 97 02/22/24 07:30 FiO2 Intake & Output 02/21/24 02/22/24 02/22/24 18:59 06:59 18:59 Intake Total 650 Output Total 100 Balance 550 Weight 117.934 kg Intake: Oral 650 Output: Urine 100 Other: Voiding Method External Catheter External Catheter External Catheter # Voids 2 6 - Exam GENERAL DESCRIPTION: An elderly female lying in bed in no distress RESPIRATORY SYSTEM: Unlabored breathing , decreased breath sounds at bases HEART: S1 S2 regular rate and rhythm , ABDOMEN: Soft , no tenderness EXTREMITIES: Left leg swelling redness has decreased - Labs CBC & Chem 7: 02/21/24 06:35 02/21/24 06:35 Labs: Abnormal Lab Results - Last 24 Hours (Table) 02/21/24 02/21/24 02/22/24 Range/Units 17:11 21:50 06:21 POC Glucose (mg/dL) 138 H 171 H 178 H (70-110) mg/dL 02/22/24 Range/Units 11:10 POC Glucose (mg/dL) 228 H (70-110) mg/dL Microbiology - Last 24 Hours (Table) 02/20/24 16:25 Blood Culture - Preliminary Blood Assessment and Plan (1) Fever Current Visit: Yes Status: Acute Code(s): R50.9 - FEVER, UNSPECIFIED SNOMED Code(s): 360367202 (2) Left leg cellulitis Current Visit: Yes Status: Acute Code(s): L03.116 - CELLULITIS OF LEFT LOWER LIMB SNOMED Code(s): 72371490926099497 (3) Pyelonephritis Current Visit: Yes Status: Acute Code(s): N12 - TUBULO-INTERSTITIAL NEPHRITIS, NOT SPCF ACUTE OR CHRONIC SNOMED Code(s): 46168274 Plan: 1patient with a fever source is multifactorial in this patient initially presented hospital with the right flank pain did have positive UA concerning for pyelonephritis, 3 urine culture reported negative repeat UA done last night did show overall improvement patient also have a left lower extremity cellulitis that seem to have failed to respond to the clindamycin possible MRSA. 2patient did have resolution of her fever we will continue the patient on vancomycin and Rocephin while inpatient finishing therapy with oral doxycycline discussed with the admitting physician as well as family the bedside Dictation was produced using [employer] dictation software. please excuse any grammatical, word or spelling errors. Time with Patient: Less than 30
[2024-02-23] MEDS: VANCOMYCIN TROUGH DUE 1 EACH MISC MISCELLANE ONE (05:00)
[2024-02-23 05:46] LABS: Glucose,Whole Blood 171 mg/dL (70-110)
[2024-02-23 05:46] LABS: African American GFR (CKD) >90 (>60 ml/min/1.73 sqM); Non-African American GFR(CKD) >90 (>60 ml/min/1.73 sqM)
[2024-02-23] MEDS: ENOXAPARIN 40 MG/0.4 ML SYRINGE SQ SCH (08:36)
[2024-02-23 11:44] LABS: Glucose,Whole Blood 171 mg/dL (70-110)
--- NOTE | 2024-02-23 13:12 | P.PN ---
Subjective Progress Note Date: 02/23/24 Hospital Course: 78-year-old female with history of advanced dementia, hypertension, dyslipidem ia, type 2 diabetes, depression, gout presenting with right flank pain. Initially admitted for urinary tract infection secondary to acute pyelonephritis and left lower extremity cellulitis. Initial laboratory workup showed white count of 11.9, rest of the labs were unremarkable. Urinalysis positive for nitrites and leukocyte esterase. Urine cultures shows no growth, blood cultures shows no growth. ID was also consulted. Renal ultrasound showed echogenic foci within the mid left kidney, possible nonobstructive renal stone. Patient was initially on broad-spectrum antibiotics, was taken off of vancomycin and started spiking fevers. Now restarted back on vancomycin and continued on ceftriaxone. Patient placement. Subjective: Patient seen and examined at bedside. No acute events overnight. Denies any new complaints. Pertinent positives and negatives as discussed above, a complete review of systems was performed and all other systems are negative. Vitals Signs Reviewed. General: Nontoxic, no distress, appears at stated age Derm: Warm, dry, minimal left lower extremity erythema Head: Atraumatic, normocephalic, symmetric Eyes: EOMI, no lid lag, anicteric sclera Mouth: No lip lesion, mucus membranes moist Cardiovascular: S1S2 reg, no murmur Lungs: CTA bilateral, no rhonchi, no rales, no accessory muscle use Abdominal: Soft, nontender to palpation, no guarding, no appreciable organomegaly Ext: No gross muscle atrophy, no edema, no contractures Neuro: CN II-XI grossly intact, no focal neuro deficits Psych: Alert, oriented x 1, appropriate affect Data Reviewed Today: Pertinent Labs: Creatinine 0.5, vancomycin trough 13.5, blood sugars range between 1 71-1 90 Imaging: No new imaging Assessment and Plan: Active: Urinary tract infection, present on admission Left lower extremity cellulitis, present on admission -Cultures negative -Continue IV vancomycin, monitor for renal toxicity -IV ceftriaxone 1 g every 24 hours -Discussed management with ID, possible discharge on oral doxycycline for 1 week when the patient has placement -Wound care has been consulted Unclear why patient is on oral budesonide, possible history of colitis? -Continued for now Type 2 diabetes -Continue sliding scale insulin, monitor for hypoglycemia Chronic: Depression Advanced dementia Gout Dyslipidemia Urinary incontinence Hypertension DVT ppx: Lovenox Code status: Full code Anticipated discharge place: Subacute rehab Anticipated discharge time: Pending bed availability Objective - Vital Signs Vital signs: Vital Signs Temp 98.5 F 02/23/24 07:10 Pulse 63 02/23/24 07:10 Resp 17 02/23/24 07:10 BP 122/69 02/23/24 07:10 Pulse Ox 95 02/23/24 07:10 FiO2 Intake & Output 02/22/24 02/23/24 02/23/24 18:59 06:59 18:59 Intake Total 320 Output Total 250 Balance 70 Intake: Oral 320 Output: Urine 250 Other: Voiding Method External Catheter Diaper Diaper External Catheter External Catheter # Voids 1 - Labs CBC & Chem 7: 02/21/24 06:35 02/23/24 05:05 Labs: Abnormal Lab Results - Last 24 Hours (Table) 02/22/24 02/22/24 02/23/24 Range/Units 16:52 20:49 05:05 Creatinine 0.50 L (0.52-1.04) mg/dL POC Glucose (mg/dL) 180 H 190 H (70-110) mg/dL 02/23/24 02/23/24 Range/Units 05:45 11:43 Creatinine (0.52-1.04) mg/dL POC Glucose (mg/dL) 171 H 171 H (70-110) mg/dL Microbiology - Last 24 Hours (Table) 02/20/24 16:25 Blood Culture - Preliminary Blood 02/17/24 16:38 Blood Culture - Final Blood
--- NOTE | 2024-02-23 16:24 | P.PN ---
Subjective Progress Note Date: 02/23/24 Principal diagnosis: Reason for follow-up is UTI and left leg cellulitis Patient is 78-year-old female past medical history present for hypertension reflux dementia pneumonia sleep apnea has been brought into the hospital for evaluation of right flank pain has been diagnosed with right-sided UTI pyelonephritis and left leg cellulitis. On today's evaluation that is 02/23/2024, Patient is afebrile patient is more awake and alert was up in the chair and being fed by the family member she is breathing comfortably on room air no vomiting or diarrhea has been reported or pain to the left lower extremity. Patient did have a creatinine 0.50 Vanco trough of 13.5 blood culture has been negative Objective - Vital Signs Vital signs: Vital Signs Temp 98.2 F 02/23/24 13:30 Pulse 66 02/23/24 13:30 Resp 18 02/23/24 13:30 BP 122/69 02/23/24 13:30 Pulse Ox 96 02/23/24 13:30 FiO2 Intake & Output 02/22/24 02/23/24 02/23/24 18:59 06:59 18:59 Intake Total 320 Output Total 250 Balance 70 Intake: Oral 320 Output: Urine 250 Other: Voiding Method External Catheter Diaper Diaper External Catheter External Catheter # Voids 1 2 - Exam GENERAL DESCRIPTION: An elderly female lying in bed in no distress RESPIRATORY SYSTEM: Unlabored breathing , decreased breath sounds at bases HEART: S1 S2 regular rate and rhythm , ABDOMEN: Soft , no tenderness EXTREMITIES: Left leg swelling redness has decreased - Labs CBC & Chem 7: 02/21/24 06:35 02/23/24 05:05 Labs: Abnormal Lab Results - Last 24 Hours (Table) 02/22/24 02/22/24 02/23/24 Range/Units 16:52 20:49 05:05 Creatinine 0.50 L (0.52-1.04) mg/dL POC Glucose (mg/dL) 180 H 190 H (70-110) mg/dL 02/23/24 02/23/24 Range/Units 05:45 11:43 Creatinine (0.52-1.04) mg/dL POC Glucose (mg/dL) 171 H 171 H (70-110) mg/dL Microbiology - Last 24 Hours (Table) 02/20/24 16:25 Blood Culture - Preliminary Blood 02/17/24 16:38 Blood Culture - Final Blood Assessment and Plan (1) Fever Current Visit: Yes Status: Acute Code(s): R50.9 - FEVER, UNSPECIFIED SNOMED Code(s): 470904542 (2) Left leg cellulitis Current Visit: Yes Status: Acute Code(s): L03.116 - CELLULITIS OF LEFT LOWER LIMB SNOMED Code(s): 67354327173829677 (3) Pyelonephritis Current Visit: Yes Status: Acute Code(s): N12 - TUBULO-INTERSTITIAL NEPHRITIS, NOT SPCF ACUTE OR CHRONIC SNOMED Code(s): 18181557 Plan: 1patient with a fever source is multifactorial in this patient initially presented hospital with the right flank pain did have positive UA concerning for pyelonephritis, 3 urine culture reported negative repeat UA done last night did show overall improvement patient also have a left lower extremity cellulitis that seem to have failed to respond to the clindamycin possible MRSA. 2patient did have resolution of her fever and repeat blood culture has been negative 3we will continue the patient on vancomycin and Rocephin while inpatient finishing therapy with oral doxycycline x 7 days on discharge Dictation was produced using [employer] dictation software. please excuse any grammatical, word or spelling errors. Time with Patient: Less than 30
[2024-02-23 16:35] LABS: Glucose,Whole Blood 167 mg/dL (70-110)
[2024-02-23 20:28] LABS: Glucose,Whole Blood 239 mg/dL (70-110)
[2024-02-24 06:08] LABS: Glucose,Whole Blood 149 mg/dL (70-110)
[2024-02-24 08:15] VITALS: BP 150/77; PULSE 60; RESP 18; TEMP 97.9
[2024-02-24 12:05] LABS: Glucose,Whole Blood 298 mg/dL (70-110)
--- NOTE | 2024-02-24 12:34 | P.DS ---
Providers Date of admission: 02/17/24 14:07 Expected date of discharge: 02/24/24 Attending physician: Jaron Prakash MD Consults: 02/20/24 11:33 Consult Physician Routine Consulting Provider: Jennifer Cornejo Consult Reason/Comments: fever Do you want consulting provider notified?: Yes Primary care physician: Erik Barahona Hospital Course: Discharge Diagnosis: Urinary tract infection, present on admission Left lower extremity cellulitis, present on admission Type 2 diabetes Depression Advanced dementia Gout Dyslipidemia Urinary incontinence Hypertension Hospital Course: 78-year-old female with history of advanced dementia, hypertension, dyslipidemia, type 2 diabetes, depression, gout presenting with right flank pain. Initially admitted for urinary tract infection secondary to acute pyelonephritis and left lower extremity cellulitis. Initial laboratory workup showed white count of 11.9, rest of the labs were unremarkable. Urinalysis positive for nitrites and leukocyte esterase. Urine cultures shows no growth, blood cultures shows no growth. ID was also consulted. Renal ultrasound showed echogenic foci within the mid left kidney, possible nonobstructive renal stone. Patient was initially on broad-spectrum antibiotics, was taken off of vancomycin and started spiking fevers. Now restarted back on vancomycin and continued on ceftriaxone. Improving overall. Being discharged to rehab facility on oral doxycycline. Follow-up with PCP outpatient. Patient seen and examined at bedside. Vital signs reviewed and stable. General: Nontoxic, no distress, appears at stated age Derm: Warm, dry, minimal left lower extremity erythema Head: Atraumatic, normocephalic, symmetric Eyes: EOMI, no lid lag, anicteric sclera Mouth: No lip lesion, mucus membranes moist Cardiovascular: S1S2 reg, no murmur Lungs: CTA bilateral, no rhonchi, no rales, no accessory muscle use Abdominal: Soft, nontender to palpation, no guarding, no appreciable organo megaly Ext: No gross muscle atrophy, no edema, no contractures Neuro: CN II-XI grossly intact, no focal neuro deficits Psych: Alert, oriented x 1, appropriate affect A total of 33 minutes of time were spent preparing this complex discharge summary. Patient was discharged on 03/15 at 1129. Patient Condition at Discharge: Stable Plan - Discharge Summary Discharge Rx Participant: No New Discharge Prescriptions: New Doxycycline Hyclate 100 mg PO BID 7 Days #14 tab Continue Atorvastatin [Lipitor] 40 mg PO HS allopurinoL [Zyloprim] 300 mg PO DAILY Cavilon No Sting Avila Film 1 applic TOPICAL DAILY PRN PRN Reason: to bottom Budesonide [Budesonide ER] 9 mg PO DAILY Cholestyramine (with Sugar) [Cholestyramine Packet] 4 gm PO DAILY@1200 hydrOXYzine HCL [Atarax] 10 mg PO QID PRN PRN Reason: Anxiety Magnesium Oxide [Mag-Ox] 400 mg PO DAILY metFORMIN HCL [Glucophage] 500 mg PO BID Nystatin [Nystop] 1 applic TOPICAL TID Silver Sulfadiazine [Silver Sulfadiazine 1%] 1 applic TOPICAL BID Spironolactone 50 mg PO DAILY Bacitracin Zinc Oint 1 applic TOPICAL DAILY #28 gm Acetaminophen Tab [Tylenol] 500 mg PO Q4H PRN MDD 4gm PRN Reason: Pain Escitalopram [Lexapro] 10 mg PO DAILY Elias Packet 1 packet PO BID Metoprolol Succinate (ER) [Toprol XL] 50 mg PO BID Tolterodine ER [Detrol LA] 2 mg PO DAILY traZODone HCL [Desyrel] 50 mg PO HS PRN PRN Reason: sleep Zinc Oxide 20% Oint 1 applic TOPICAL DAILY PRN PRN Reason: wounds Medihoney 1 applic TOPICAL DAILY Discontinued clindamycin HCL 300 mg PO TID Potassium Chloride ER [K-Dur 20] 20 meq PO DAILY Furosemide [Lasix] 20 mg PO DAILY Discharge Medication List Atorvastatin [Lipitor] 40 mg PO HS 06/28/14 [History] allopurinoL [Zyloprim] 300 mg PO DAILY 06/28/14 [History] Bacitracin Zinc Oint 1 applic TOPICAL DAILY #28 gm 12/26/23 [Rx] Acetaminophen Tab [Tylenol] 500 mg PO Q4H PRN MDD 4gm 02/17/24 [History] Budesonide [Budesonide ER] 9 mg PO DAILY 02/17/24 [History] Cavilon No Sting Avila Film 1 applic TOPICAL DAILY PRN 02/17/24 [History] Cholestyramine (with Sugar) [Cholestyramine Packet] 4 gm PO DAILY@1200 02/17/24 [History] Escitalopram [Lexapro] 10 mg PO DAILY 02/17/24 [History] Elias Packet 1 packet PO BID 02/17/24 [History] Magnesium Oxide [Mag-Ox] 400 mg PO DAILY 02/17/24 [History] Medihoney 1 applic TOPICAL DAILY 02/17/24 [History] Metoprolol Succinate (ER) [Toprol XL] 50 mg PO BID 02/17/24 [History] Nystatin [Nystop] 1 applic TOPICAL TID 02/17/24 [History] Silver Sulfadiazine [Silver Sulfadiazine 1%] 1 applic TOPICAL BID 02/17/24 [History] Spironolactone 50 mg PO DAILY 02/17/24 [History] Tolterodine ER [Detrol LA] 2 mg PO DAILY 02/17/24 [History] Zinc Oxide 20% Oint 1 applic TOPICAL DAILY PRN 02/17/24 [History] hydrOXYzine HCL [Atarax] 10 mg PO QID PRN 02/17/24 [History] metFORMIN HCL [Glucophage] 500 mg PO BID 02/17/24 [History] traZODone HCL [Desyrel] 50 mg PO HS PRN 02/17/24 [History] Doxycycline Hyclate 100 mg PO BID 7 Days #14 tab 02/24/24 [Rx] Follow up Appointment(s)/Referral(s): Erik Barahona DO [Primary Care Provider] - 1-2 days (ECF please call for follow-up appointment.) Melissa Rodriguez, [NON-STAFF] - As Needed Patient Instructions/Handouts: Urinary Tract Infection in Women (DC), Cellulitis (GEN) Activity/Diet/Wound Care/Special Instructions: Please see PCP. Discharge Disposition: TRANSFER TO SNF/ECF
--- NOTE | 2024-02-25 14:37 | P.PN ---
Subjective Progress Note Date: 02/24/24 Principal diagnosis: Reason for follow-up is UTI and left leg cellulitis Patient is 78-year-old female past medical history present for hypertension reflux dementia pneumonia sleep apnea has been brought into the hospital for evaluation of right flank pain has been diagnosed with right-sided UTI pyelonephritis and left leg cellulitis. On today's evaluation that is 02/24/2024, patient has been afebrile, patient is breathing comfortably and is currently on room air, patient is more awake alert up in the chair being fed by family no pain to the left lower extremity no vomiting or diarrhea has been reported. No new labs were obtained today Objective - Vital Signs Vital signs: Vital Signs Temp 97.9 F 02/24/24 08:00 Pulse 60 02/24/24 08:00 Resp 18 02/24/24 08:00 BP 150/77 02/24/24 08:00 Pulse Ox 97 02/24/24 08:00 FiO2 Intake & Output 02/23/24 02/24/24 02/24/24 18:59 06:59 18:59 Output Total 700 Balance -700 Output: Urine 700 Other: Voiding Method Diaper Diaper Diaper External Catheter # Voids 2 1 - Exam GENERAL DESCRIPTION: An elderly female lying in bed in no distress RESPIRATORY SYSTEM: Unlabored breathing , decreased breath sounds at bases HEART: S1 S2 regular rate and rhythm , ABDOMEN: Soft , no tenderness EXTREMITIES: Left leg swelling redness has decreased - Labs CBC & Chem 7: 02/21/24 06:35 02/23/24 05:05 Labs: Abnormal Lab Results - Last 24 Hours (Table) 02/23/24 02/23/24 02/24/24 Range/Units 16:32 20:26 06:07 POC Glucose (mg/dL) 167 H 239 H 149 H (70-110) mg/dL 02/24/24 Range/Units 12:04 POC Glucose (mg/dL) 298 H (70-110) mg/dL Microbiology - Last 24 Hours (Table) 02/20/24 16:25 Blood Culture - Preliminary Blood Assessment and Plan (1) Fever Status: Acute Code(s): R50.9 - FEVER, UNSPECIFIED SNOMED Code(s): 169281950 (2) Left leg cellulitis Status: Acute Code(s): L03.116 - CELLULITIS OF LEFT LOWER LIMB SNOMED Code(s): 88988001166656646 (3) Pyelonephritis Status: Acute Code(s): N12 - TUBULO-INTERSTITIAL NEPHRITIS, NOT SPCF ACUTE OR CHRONIC SNOMED Code(s): 88806292 Plan: 1patient with a fever source is multifactorial in this patient initially presented hospital with the right flank pain did have positive UA concerning for pyelonephritis, 3 urine culture reported negative repeat UA done last night did show overall improvement patient also have a left lower extremity cellulitis that seem to have failed to respond to the clindamycin possible MRSA. 2patient did have resolution of her fever and repeat blood culture has been negative 3patient will therapy with oral doxycycline x 7 days on discharge, discussed with admitting team and family at the bedside Dictation was produced using [employer] dictation software. please excuse any grammatical, word or spelling errors. Time with Patient: Less than 30
--- NOTE | 2024-03-16 15:57 | CDI ---
Documentation Clarification Form Date: 03/16/2024 12:00:00 AM From: Christine Williamson Phone: Admit Date: 02/17/2024 02:07:00 PM Patient Name: Nazia Lawler Visit Number: [id number] Discharge Date: 02/24/2024 03:44:00 PM ATTENTION: The Clinical Documentation Specialists (CDI) and [facility] Coding Staff appreciate your assistance in clarifying documentation. Please respond to the clarification below the line at the bottom and electronically sign. The CDI & [facility] Coding staff will review the response and follow-up if needed. Please note: Queries are made part of the Legal Health Record. If you have any questions, please contact the author of this message via ITS. Doctor/Provider: Joaquín Mckinnon Cellulitis is documented on 02/16 ED note. Additional clarification regarding the type of cellulitis is requested. History/risk factors: DM2, HTN, HLD, Dementia, Depression, Gout Clinical Indicators: Patient presented on 02/16 with Acute Pyelonephritis and Left lower extremity cellulitis. 02/16 WBC - 11.9 Treatment: Vancomycin IV, Ceftriaxone IV 1g daily, discharged on oral Doxycycline 100mg BID 7 days Please clarify the etiology of the cellulitis, if known: [ ] Cellulitis is a diabetic skin complication [x ] Cellulitis is not a diabetic skin complication [ ] Other, please specify: [ ] Unable to determine MTDD
== END 2024-02-24 15:44 | DRG 690 ==
LOC: EC 07:16 → 4SSUR 14:07
PROVIDERS: ADMIT Internal Medicine; ATTEND Internal Medicine
DX: N10 Acute pyelonephritis (principal); L03.116 Cellulitis of left lower limb; F03.93 Unspecified dementia, unspecified severity, with mood disturbance; F03.94 Unspecified dementia, unspecified severity, with anxiety; I10 Essential (primary) hypertension; F32.A Depression, unspecified; M35.00 Sjogren syndrome, unspecified; E11.9 Type 2 diabetes mellitus without complications; I87.8 Other specified disorders of veins; E78.5 Hyperlipidemia, unspecified; M10.9 Gout, unspecified; G47.30 Sleep apnea, unspecified; Z96.611 Presence of right artificial shoulder joint; Z79.52 Long term (current) use of systemic steroids; Z79.84 Long term (current) use of oral hypoglycemic drugs; Z79.899 Other long term (current) drug therapy; Z87.01 Personal history of pneumonia (recurrent); Z87.442 Personal history of urinary calculi; Z90.710 Acquired absence of both cervix and uterus
CPT/HCPCS: 36415; 72100; 76770; 80048; 80053; 80202; 81001; 82565; 83735; 85025; 87040; 87086; 96361; 96365; 96375; 99285

== ENCOUNTER 2024-06-18 08:12 | Inpatient (IN) | payer MEDICARE ==
[2024-06-18] MEDS ORDERED: VANCOMYCIN IV PER PHARMACY 1 EACH MISC MISCELLANE PRN (08:42)
[2024-06-18] MEDS: LACTATED RINGERS 1,000 ML IV ONE ×2 (08:45→09:25)
[2024-06-18 08:51] LABS: Basophils % (A) 0 %; Eosinophils # (A) 0.1 k/uL (0-0.7); Eosinophils % (A) 1 %; HCT 46.8 % (34.0-46.0); HGB 16.2 gm/dL (11.4-16.0); Lymphocytes # (A) 0.8 k/uL (1.0-4.8); Lymphocytes % (A) 4 %; MCH 31.8 pg (25.0-35.0); MCHC 34.6 g/dL (31.0-37.0); MCV 91.8 fL (80.0-100.0); Mean Platelet Volume 7.3; Monocytes # (A) 1.2 k/uL (0-1.0); Monocytes % (A) 6 %; Neutrophils # (A) 17.5 k/uL (1.3-7.7); Neutrophils % (A) 88 %; Platelet Count 330 k/uL (150-450); RDW 13.4 % (11.5-15.5); WBC 19.9 k/uL (3.8-10.6)
[2024-06-18 09:04] LABS: ALT 24 U/L (4-34); African American GFR (CKD) >90 (>60 ml/min/1.73 sqM); Alcohol <10 mg/dL; Anion Gap 13 mmol/L; Blood Urea Nitrogen 37 mg/dL (7-17); Calcium 9.4 mg/dL (8.4-10.2); Carbon Dioxide 23 mmol/L (22-30); Chloride 95 mmol/L (98-107); Glucose 283 mg/dL (74-99); Non-African American GFR(CKD) 85 (>60 ml/min/1.73 sqM); Sodium 131 mmol/L (137-145); Total Bilirubin 1.3 mg/dL (0.2-1.3)
[2024-06-18 09:06] LABS: INR 1.1 (<1.2)
[2024-06-18 09:13] LABS: Potassium 4.4 mmol/L (3.5-5.1)
[2024-06-18 09:14] LABS: AST 38 U/L (14-36); Alkaline Phosphatase 44 U/L (38-126); Total Protein 6.6 g/dL (6.3-8.2)
[2024-06-18] MEDS: ACETAMINOPHEN IV (For NPO) 1,000 MG in EMPTY BAG 1 BAG IVPB STA (09:23)
[2024-06-18] MEDS: LACTATED RINGERS 1,000 ML BAG IV STA ×2 (09:24→12:46)
[2024-06-18] MEDS: CEFEPIME 2 GM in SODIUM CHLORIDE 0.9% 100 ML IVPB SCH (09:27)
[2024-06-18 09:30] LABS: Amphetamine Screen,Urine Not Detected (NotDetected); Barbiturate Screen,Urine Not Detected (NotDetected); Benzodiazepines Screen,Urine Not Detected (NotDetected); Cocaine Screen,Urine Not Detected (NotDetected); Methadone Screen, Urine Not Detected (NotDetected); Opiate Screen,Urine Not Detected (NotDetected); Oxycodone Screen, Urine Not Detected (NotDetected); Phencyclidine Screen,Urine Not Detected (NotDetected); Tricyclic Antidepressant,Urine Not Detected (NotDetected); Urn Cannabinoid Scrn Not Detected (NotDetected)
[2024-06-18 09:36] LABS: Appearance,Urine Clear (Clear); Bacteria,Urine Rare /hpf; Bilirubin,Urine Negative (Negative); Blood,Urine Moderate (Negative); Color,Urine Yellow; Glucose,Urine (UA) Negative (Negative); Ketones,Urine 1+ (Negative); Leukocyte Esterase,Urine Negative (Negative); Mucus,Urine Occasional /hpf; Nitrite,Urine Negative (Negative); PH, Urine 6.5 (5.0-8.0); Protein,Urine 1+ (Negative); RBC,Urine 26 /hpf (0-5); Specific Gravity,Urine 1.025 (1.001-1.035); Squamous Epithelial Cell,Urine <1 /hpf (0-4); Urobilinogen,Urine <2.0 mg/dL (<2.0); WBC,Urine 7 /hpf (0-5)
[2024-06-18] MEDS: METOPROLOL TARTRATE 5 MG/5 ML VIAL IVP STA ×2 (09:49→11:14)
[2024-06-18 09:59] LABS: Glucose,Whole Blood 279 mg/dL (70-110)
[2024-06-18] MEDS: VANCOMYCIN 1,750 MG in SODIUM CHLORIDE 0.9% 500 ML 500 ML IVPB STA (10:00)
--- NOTE | 2024-06-18 10:07 | XR ---
EXAMINATION TYPE: XR chest 2V DATE OF EXAM: 06/18/2024 9:36 AM COMPARISON: Chest radiographs from [id number] CLINICAL INDICATION: Female, 78 years old with history of altered mental status; TECHNIQUE: XR chest 2V Frontal and lateral views of the chest. FINDINGS: Lungs/Pleura: There is no evidence of pleural effusion, focal consolidation, or pneumothorax. Pulmonary vascularity: Pulmonary vascular congestion. Heart/mediastinum: Cardiomediastinal silhouette is enlarged and stable. Musculoskeletal: No acute osseous pathology. IMPRESSION: Cardiomegaly and mild pulmonary vascular congestion. Correlate with BNP for congestive heart failure. [facility], , 06/18/2024 10:04 AM
[2024-06-18] MEDS ORDERED: NALOXONE 0.4 MG/ML 1 ML VIAL IV PRN (11:21)
[2024-06-18] MEDS ORDERED: ACETAMINOPHEN TAB 325 MG TAB PO PRN ×2 (11:21→12:40)
--- NOTE | 2024-06-18 11:28 | ED ---
General Adult HPI - General Chief complaint: Fever Stated complaint: fever,NV, AMS Time Seen by Provider: 06/18/24 08:37 Source: patient, EMS, RN notes reviewed Mode of arrival: EMS Limitations: altered mental status - History of Present Illness Initial comments: Patient is a 78-year-old female who presents emergency department complaining of what appears to be cough, fevers, slightly altered mental status. Patient at baseline is ANO x 1. Patient is in no code. Has DNR paperwork with her. Presents from nursing facility for concern for upper respiratory infection. Patient is not normally on oxygen and is currently requiring oxygen tripathi pplementation. Patient has noisy breathing. Past medical history includes dementia, hypertension, pneumonia, sleep apnea. Is on CPAP. Presents for further evaluation at this time. Patient is a poor historian and cannot provide any details at this time. Patient's present and corroborates the story. Reaffirms that patient is a no code. - Related Data Home Medications Medication Instructions Recorded Confirmed Atorvastatin [Lipitor] 40 mg PO HS@2100 06/28/14 06/18/24 allopurinoL [Zyloprim] 300 mg PO DAILY@0800 06/28/14 06/18/24 Acetaminophen Tab [Tylenol] 500 mg PO Q4H PRN 02/17/24 06/18/24 Budesonide [Budesonide ER] 9 mg PO DAILY@0800 02/17/24 06/18/24 Escitalopram [Lexapro] 10 mg PO DAILY@0800 02/17/24 06/18/24 Elias Packet 1 packet PO BID@0800,1700 02/17/24 06/18/24 Magnesium Oxide [Mag-Ox] 400 mg PO DAILY@0800 02/17/24 06/18/24 Metoprolol Succinate (ER) [Toprol 50 mg PO BID@0800,1700 02/17/24 06/18/24 XL] Spironolactone 50 mg PO DAILY@0800 02/17/24 06/18/24 Tolterodine ER [Detrol LA] 2 mg PO DAILY@0800 02/17/24 06/18/24 metFORMIN HCL [Glucophage] 1,000 mg PO BID@0800,1700 02/17/24 06/18/24 Glucerna Shake 1 can PO W/LUNCH 06/18/24 06/18/24 Magnesium Hydroxide [Milk of 7,200 mg PO Q48H PRN 06/18/24 06/18/24 Magnesia Concentrate] Na Phos,M-B/Na Phos,Di-Ba [Fleet 133 ml RECTAL DAILY PRN 06/18/24 06/18/24 Adult] Sennosides [Senokot] 8.6 mg PO BID@0800,1700 06/18/24 06/18/24 amLODIPine [Norvasc] 5 mg PO DAILY@0800 06/18/24 06/18/24 bisacodyL [Dulcolax] 10 mg RECTAL DAILY PRN 06/18/24 06/18/24 Allergies Allergy/AdvReac Type Severity Reaction Status Date / Time No Known Allergies Allergy Verified 02/17/24 14:10 Review of Systems ROS Statement: Those systems with pertinent positive or pertinent negative responses have been documented in the HPI. ROS Other: All systems not noted in ROS Statement are negative. Past Medical History Past Medical History: Dementia, GERD/Reflux, Hypertension, Pneumonia, Sleep Apnea/CPAP/BIPAP Additional Past Medical History / Comment(s): hx migraines,sjogrens,hx pneum onia, hx kidney stones History of Any Multi-Drug Resistant Organisms: MRSA Date of last positivie culture/infection: 06/02/24 MDRO Source:: BUTTOCK, urine Past Surgical History: Section, Cholecystectomy, Hysterectomy, Joint Replacement Additional Past Surgical History / Comment(s): ariana knee and rt shoulder replacement, cataracts, surgery on left thumb and wrist, Past Anesthesia/Blood Transfusion Reactions: Previous Problems w/ Anesthesia Additional Past Anesthesia/Blood Transfusion Reaction / Comment(s): "almost aspirated" Past Psychological History: Anxiety Smoking Status: Unknown if ever smoked Past Alcohol Use History: None Reported Past Drug Use History: None Reported - Past Family History Father Family Medical History: Cancer Additional Family Medical History / Comment(s): colon cancer General Exam - General Exam Comments Initial Comments: General: Appears in mild respiratory distress. Noisy breathing concerning for pneumonia. HEAD: Normal with no signs of head trauma. EYES: EOMI ENT: Dry mucous membranes RESPIRATORY: Coarse breath sounds bilaterally. Hypoxia on room air. Improved on oxygen. Increased work of breathing. C/V: Irregular rate and rhythm. S1 and S2 auscultated. Mild peripheral edema. Peripheral pulses 2+ intact throughout. ABD: Abd is soft, nontender, nondistended EXT: No obvious deformity. SKIN: No rashes or lesions observed on exposed skin. NEURO: Alert and oriented x 0-1, which is near the patient's baseline. Limitations: altered mental status Course Vital Signs 06/18/24 06/18/24 06/18/24 08:17 08:45 09:15 Temperature 102.7 F H Pulse Rate 168 H 146 H 176 H Respiratory 32 H 33 H 35 H Rate Blood Pressure 130/109 127/93 120/103 O2 Sat by Pulse 92 L 93 L 93 L Oximetry Fraction of Inspired Oxygen (FIO2) 06/18/24 06/18/24 06/18/24 09:45 10:15 10:30 Temperature 102.3 F H Pulse Rate 170 H 134 H 123 H Respiratory 39 H 41 H 41 H Rate Blood Pressure 124/79 109/95 146/91 O2 Sat by Pulse 91 L 92 L 93 L Oximetry Fraction of Inspired Oxygen (FIO2) 06/18/24 06/18/24 06/18/24 11:10 13:29 13:38 Temperature 100.1 F H Pulse Rate 134 H 120 H 118 H Respiratory 40 H 40 H Rate Blood Pressure 148/112 O2 Sat by Pulse Oximetry Fraction of Inspired Oxygen (FIO2) 06/18/24 06/18/24 06/18/24 13:41 13:55 13:56 Temperature 102.3 F H Pulse Rate 116 H Respiratory 27 H Rate Blood Pressure 147/94 O2 Sat by Pulse 96 Oximetry Fraction of 40 40 Inspired Oxygen (FIO2) Medical Decision Making - Medical Decision Making Was pt. sent in by a medical professional or institution (, PA, AUTOMOTIVE MACHINIST, urgent care, hospital, or detention...) When possible be specific @ -Sent from nursing facility. Did you speak to anyone other than the patient for history (EMS, parent, family, police, friend...)? What history was obtained from this source @ -No Did you review nursing and triage notes (agree or disagree)? Why? @ -I reviewed and agree with nursing and triage notes Were old charts reviewed (outside hosp., previous admission, EMS record, old EKG, old radiological studies, urgent care reports/EKG's, detention records)? Report findings @ -No old charts were reviewed Differential Diagnosis (chest pain, altered mental status, abdominal pain women, abdominal pain men, vaginal bleeding, weakness, fever, dyspnea, syncope, headache, dizziness, GI bleed, back pain, seizure, CVA, palpatations, mental health, musculoskeletal)? @ -Pneumonia, flu, sepsis, UTI. This list is not all inclusive. EKG interpreted by me (3pts min.). @ -As above X-rays interpreted by me (1pt min.). @ -Chest x-ray reveals findings concerning for right lower lobe pneumonia. CT interpreted by me (1pt min.). @ -None done U/S interpreted by me (1pt. min.). @ -None done What testing was considered but not performed or refused? (CT, X-rays, U/S, labs)? Why? @ -None What meds were considered but not given or refused? Why? @ -None Did you discuss the management of the patient with other professionals (professionals i.e. , PA, AUTOMOTIVE MACHINIST, lab, RT, psych nurse, social work nurse, marketing analytics specialist, teacher, reserve officer, case fitter)? Give summary @ -Discussed with admitting provider, Dr. Mckinnon of [facility] who accepted the admission. Was smoking cessation discussed for >3mins.? @ -No Was critical care preformed (if so, how long)? @ -Yes, 36 minutes Were there social determinants of health that impacted care today? How? (Homelessness, low income, unemployed, alcoholism, drug addiction, transportation, low edu. Level, literacy, decrease access to med. care, detention, rehab)? @ -No Was there de-escalation of care discussed even if they declined (Discuss DNR or withdrawal of care, Hospice)? DNR status @ -Confirmed with patient's that patient is DNR/DNI What co-morbidities impacted this encounter? (DM, HTN, Smoking, COPD, CAD, Cancer, CVA, ARF, Chemo, Hep., AIDS, mental health diagnosis, sleep apnea, morbid obesity)? @ -Dementia, DNR/DNI, chronically on CPAP at night. Was patient admitted / discharged? Hospital course, mention meds given and route, prescriptions, significant lab abnormalities, going to OR and other pertinent info. @ -Patient presents with altered mentation, what appears to be infectious related. Patient is febrile, and new onset A-fib with RVR, with stable blood pressure. Patient is hypoxic on room air. EKG shows no signs of acute ischemia. Patient is febrile which is likely contributing to the A-fib with RVR. She is DNR/DNI. Does meet sepsis criteria upon presentation blood cultures obtained and send patient initiated on vancomycin and cefepime. Patient will be given 1 L fluid bolus and start maintenance fluids. Will not meet the 30 cc/kg fluid bolus criteria for her weight as there is some concern for possible undiagnosed CHF. Patient is hypoxic and therefore this could be contributory. We will closely monitor patient's fluid status and administer if needed. Patient given IV pushes of metoprolol as well. She is on metoprolol baseline and we do not believe she took her medications this morning. She also be initiated on IV steroids, as well as breathing treatments. Workup remarkable for what appears to be right lower lobe pneumonia on chest x- ray. Was not interpreted by radiology as such however it does appear different when compared with prior chest x-rays. Patient has a leukocytosis of 19.9. Lactic acidosis of 4.6. Troponin of 0.057. Patient given rectal aspirin as well as rectal Tylenol. Urinalysis unremarkable. Viral swabs unremarkable. At this time, patient will be admitted for sepsis, and I do believe the source is a right lower lobe pneumonia. Patient already initiated on antibiotics. Patient does meet sepsis criteria already and was already initiated on therapy as described above. I discussed with patient's who was in agreement plan for admission. Patient will be admitted under [facility] and I spoke with Dr. Cueva who accepted the admission. Pulmonology consulted. Cardiology consulted. Patient's heart rate is improved following multiple doses of metoprolol we will continue to monitor. Originally came in with heart rate ranging from 1 30-1 60 and currently is ranging typically from 100-1 20. I believe as her fever improves, heart rate will also improve. Patient and admitting team and in agreement with this plan. Patient admitted in serious condition. Patient was initiated on BiPAP as her work of breathing did worsen. Patient did seem to improve on BiPAP therapy. Admitting team updated of this change, Dr. Beaulieu. Undiagnosed new problem with uncertain prognosis? @ -No Drug Therapy requiring intensive monitoring for toxicity (Heparin, Nitro, Insulin, Cardizem)? @ -No Were any procedures done? @ -No Diagnosis/symptom? @ -Acute hypoxic respiratory failure secondary to septis and pneumonia. New onset atrial fibrillation with RVR Acute, or Chronic, or Acute on Chronic? @ -Acute Uncomplicated (without systemic symptoms) or Complicated (systemic symptoms)? @ -Complicated Side effects of treatment? @ -No Exacerbation, Progression, or Severe Exacerbation? @ -No Poses a threat to life or bodily function? How? (Chest pain, [place], [place], pneumonia, PE, COPD, DKA, ARF, appy, cholecystitis, CVA, Diverticulitis, Homicidal, Suicidal, threat to staff... and all critical care pts) @ -Yes - Lab Data Result diagrams: 06/18/24 08:35 06/18/24 08:35 Lab Results 06/18/24 06/18/24 06/18/24 Range/Units 08:35 08:35 08:35 WBC 19.9 H (3.8-10.6) k/uL RBC 5.10 (3.80-5.40) m/uL Hgb 16.2 H (11.4-16.0) gm/dL Hct 46.8 H (34.0-46.0) % MCV 91.8 (80.0-100.0) fL MCH 31.8 (25.0-35.0) pg MCHC 34.6 (31.0-37.0) g/dL RDW 13.4 (11.5-15.5) % Plt Count 330 (150-450) k/uL MPV 7.3 Neutrophils % 88 % Lymphocytes % 4 % Monocytes % 6 % Eosinophils % 1 % Basophils % 0 % Neutrophils # 17.5 H (1.3-7.7) k/uL Lymphocytes # 0.8 L (1.0-4.8) k/uL Monocytes # 1.2 H (0-1.0) k/uL Eosinophils # 0.1 (0-0.7) k/uL Basophils # 0.0 (0-0.2) k/uL PT 12.0 (10.0-12.5) sec INR 1.1 (<1.2) APTT 23.0 (22.0-30.0) sec Sodium 131 L (137-145) mmol/L Potassium 4.4 (3.5-5.1) mmol/L Chloride 95 L (98-107) mmol/L Carbon Dioxide 23 (22-30) mmol/L Anion Gap 13 mmol/L BUN 37 H (7-17) mg/dL Creatinine 0.69 (0.52-1.04) mg/dL Est GFR (CKD-EPI)AfAm >90 (>60 ml/min/1.73 sqM) Est GFR (CKD-EPI)NonAf 85 (>60 ml/min/1.73 sqM) Glucose 283 H (74-99) mg/dL POC Glucose (mg/dL) (70-110) mg/dL POC Glu Aerospace Stress Engineer ID Plasma Lactic Acid Juancarlos (0.7-2.0) mmol/L Calcium 9.4 (8.4-10.2) mg/dL Total Bilirubin 1.3 (0.2-1.3) mg/dL AST 38 H (14-36) U/L ALT 24 (4-34) U/L Alkaline Phosphatase 44 (38-126) U/L Ammonia (<30) umol/L Troponin I (0.000-0.034) ng/mL NT-Pro-B Natriuret Pep pg/mL Total Protein 6.6 (6.3-8.2) g/dL Albumin 4.0 (3.5-5.0) g/dL Urine Color Urine Appearance (Clear) Urine pH (5.0-8.0) Ur Specific Hessel (1.001-1.035) Urine Protein (Negative) Urine Glucose (UA) (Negative) Urine Ketones (Negative) Urine Blood (Negative) Urine Nitrite (Negative) Urine Bilirubin (Negative) Urine Urobilinogen (<2.0) mg/dL Ur Leukocyte Esterase (Negative) Urine RBC (0-5) /hpf Urine WBC (0-5) /hpf Ur Squamous Epith Cells (0-4) /hpf Urine Bacteria (None) /hpf Urine Mucus (None) /hpf Urine Opiates Screen (NotDetected) Ur Oxycodone Screen (NotDetected) Urine Methadone Screen (NotDetected) Ur Barbiturates Screen (NotDetected) U Tricyclic Antidepress (NotDetected) Ur Phencyclidine Scrn (NotDetected) Ur Amphetamines Screen (NotDetected) U Methamphetamines Scrn (NotDetected) U Benzodiazepines Scrn (NotDetected) Urine Cocaine Screen (NotDetected) U Marijuana (THC) Screen (NotDetected) Serum Alcohol <10 mg/dL Influenza Type A (PCR) (Not Detectd) Influenza Type B (PCR) (Not Detectd) RSV (PCR) (Not Detectd) SARS-CoV-2 (PCR) (Not Detectd) 06/18/24 06/18/24 06/18/24 Range/Units 08:35 08:35 08:35 WBC (3.8-10.6) k/uL RBC (3.80-5.40) m/uL Hgb (11.4-16.0) gm/dL Hct (34.0-46.0) % MCV (80.0-100.0) fL MCH (25.0-35.0) pg MCHC (31.0-37.0) g/dL RDW (11.5-15.5) % Plt Count (150-450) k/uL MPV Neutrophils % % Lymphocytes % % Monocytes % % Eosinophils % % Basophils % % Neutrophils # (1.3-7.7) k/uL Lymphocytes # (1.0-4.8) k/uL Monocytes # (0-1.0) k/uL Eosinophils # (0-0.7) k/uL Basophils # (0-0.2) k/uL PT (10.0-12.5) sec INR (<1.2) APTT (22.0-30.0) sec Sodium (137-145) mmol/L Potassium (3.5-5.1) mmol/L Chloride (98-107) mmol/L Carbon Dioxide (22-30) mmol/L Anion Gap mmol/L BUN (7-17) mg/dL Creatinine (0.52-1.04) mg/dL Est GFR (CKD-EPI)AfAm (>60 ml/min/1.73 sqM) Est GFR (CKD-EPI)NonAf (>60 ml/min/1.73 sqM) Glucose (74-99) mg/dL POC Glucose (mg/dL) (70-110) mg/dL POC Glu Aerospace Stress Engineer ID Plasma Lactic Acid Juancarlos (0.7-2.0) mmol/L Calcium (8.4-10.2) mg/dL Total Bilirubin (0.2-1.3) mg/dL AST (14-36) U/L ALT (4-34) U/L Alkaline Phosphatase (38-126) U/L Ammonia 11 (<30) umol/L Troponin I 0.057 H* (0.000-0.034) ng/mL NT-Pro-B Natriuret Pep 958 pg/mL Total Protein (6.3-8.2) g/dL Albumin (3.5-5.0) g/dL Urine Color Urine Appearance (Clear) Urine pH (5.0-8.0) Ur Specific Hessel (1.001-1.035) Urine Protein (Negative) Urine Glucose (UA) (Negative) Urine Ketones (Negative) Urine Blood (Negative) Urine Nitrite (Negative) Urine Bilirubin (Negative) Urine Urobilinogen (<2.0) mg/dL Ur Leukocyte Esterase (Negative) Urine RBC (0-5) /hpf Urine WBC (0-5) /hpf Ur Squamous Epith Cells (0-4) /hpf Urine Bacteria (None) /hpf Urine Mucus (None) /hpf Urine Opiates Screen (NotDetected) Ur Oxycodone Screen (NotDetected) Urine Methadone Screen (NotDetected) Ur Barbiturates Screen (NotDetected) U Tricyclic Antidepress (NotDetected) Ur Phencyclidine Scrn (NotDetected) Ur Amphetamines Screen (NotDetected) U Methamphetamines Scrn (NotDetected) U Benzodiazepines Scrn (NotDetected) Urine Cocaine Screen (NotDetected) U Marijuana (THC) Screen (NotDetected) Serum Alcohol mg/dL Influenza Type A (PCR) (Not Detectd) Influenza Type B (PCR) (Not Detectd) RSV (PCR) (Not Detectd) SARS-CoV-2 (PCR) (Not Detectd) 06/18/24 06/18/24 06/18/24 Range/Units 09:02 09:02 09:58 WBC (3.8-10.6) k/uL RBC (3.80-5.40) m/uL Hgb (11.4-16.0) gm/dL Hct (34.0-46.0) % MCV (80.0-100.0) fL MCH (25.0-35.0) pg MCHC (31.0-37.0) g/dL RDW (11.5-15.5) % Plt Count (150-450) k/uL MPV Neutrophils % % Lymphocytes % % Monocytes % % Eosinophils % % Basophils % % Neutrophils # (1.3-7.7) k/uL Lymphocytes # (1.0-4.8) k/uL Monocytes # (0-1.0) k/uL Eosinophils # (0-0.7) k/uL Basophils # (0-0.2) k/uL PT (10.0-12.5) sec INR (<1.2) APTT (22.0-30.0) sec Sodium (137-145) mmol/L Potassium (3.5-5.1) mmol/L Chloride (98-107) mmol/L Carbon Dioxide (22-30) mmol/L Anion Gap mmol/L BUN (7-17) mg/dL Creatinine (0.52-1.04) mg/dL Est GFR (CKD-EPI)AfAm (>60 ml/min/1.73 sqM) Est GFR (CKD-EPI)NonAf (>60 ml/min/1.73 sqM) Glucose (74-99) mg/dL POC Glucose (mg/dL) 279 H (70-110) mg/dL POC Glu Aerospace Stress Engineer ID Guillermo Palafox Plasma Lactic Acid Juancarlos (0.7-2.0) mmol/L Calcium (8.4-10.2) mg/dL Total Bilirubin (0.2-1.3) mg/dL AST (14-36) U/L ALT (4-34) U/L Alkaline Phosphatase (38-126) U/L Ammonia (<30) umol/L Troponin I (0.000-0.034) ng/mL NT-Pro-B Natriuret Pep pg/mL Total Protein (6.3-8.2) g/dL Albumin (3.5-5.0) g/dL Urine Color Yellow Urine Appearance Clear (Clear) Urine pH 6.5 (5.0-8.0) Ur Specific Hessel 1.025 (1.001-1.035) Urine Protein 1+ H (Negative) Urine Glucose (UA) Negative (Negative) Urine Ketones 1+ H (Negative) Urine Blood Moderate H (Negative) Urine Nitrite Negative (Negative) Urine Bilirubin Negative (Negative) Urine Urobilinogen <2.0 (<2.0) mg/dL Ur Leukocyte Esterase Negative (Negative) Urine RBC 26 H (0-5) /hpf Urine WBC 7 H (0-5) /hpf Ur Squamous Epith Cells <1 (0-4) /hpf Urine Bacteria Rare H (None) /hpf Urine Mucus Occasional H (None) /hpf Urine Opiates Screen Not Detected (NotDetected) Ur Oxycodone Screen Not Detected (NotDetected) Urine Methadone Screen Not Detected (NotDetected) Ur Barbiturates Screen Not Detected (NotDetected) U Tricyclic Antidepress Not Detected (NotDetected) Ur Phencyclidine Scrn Not Detected (NotDetected) Ur Amphetamines Screen Not Detected (NotDetected) U Methamphetamines Scrn Not Detected (NotDetected) U Benzodiazepines Scrn Not Detected (NotDetected) Urine Cocaine Screen Not Detected (NotDetected) U Marijuana (THC) Screen Not Detected (NotDetected) Serum Alcohol mg/dL Influenza Type A (PCR) Not Detected (Not Detectd) Influenza Type B (PCR) Not Detected (Not Detectd) RSV (PCR) Not Detected (Not Detectd) SARS-CoV-2 (PCR) Not Detected (Not Detectd) 06/18/24 Range/Units 10:59 WBC (3.8-10.6) k/uL RBC (3.80-5.40) m/uL Hgb (11.4-16.0) gm/dL Hct (34.0-46.0) % MCV (80.0-100.0) fL MCH (25.0-35.0) pg MCHC (31.0-37.0) g/dL RDW (11.5-15.5) % Plt Count (150-450) k/uL MPV Neutrophils % % Lymphocytes % % Monocytes % % Eosinophils % % Basophils % % Neutrophils # (1.3-7.7) k/uL Lymphocytes # (1.0-4.8) k/uL Monocytes # (0-1.0) k/uL Eosinophils # (0-0.7) k/uL Basophils # (0-0.2) k/uL PT (10.0-12.5) sec INR (<1.2) APTT (22.0-30.0) sec Sodium (137-145) mmol/L Potassium (3.5-5.1) mmol/L Chloride (98-107) mmol/L Carbon Dioxide (22-30) mmol/L Anion Gap mmol/L BUN (7-17) mg/dL Creatinine (0.52-1.04) mg/dL Est GFR (CKD-EPI)AfAm (>60 ml/min/1.73 sqM) Est GFR (CKD-EPI)NonAf (>60 ml/min/1.73 sqM) Glucose (74-99) mg/dL POC Glucose (mg/dL) (70-110) mg/dL POC Glu Aerospace Stress Engineer ID Plasma Lactic Acid Juancarlos 4.6 H* (0.7-2.0) mmol/L Calcium (8.4-10.2) mg/dL Total Bilirubin (0.2-1.3) mg/dL AST (14-36) U/L ALT (4-34) U/L Alkaline Phosphatase (38-126) U/L Ammonia (<30) umol/L Troponin I (0.000-0.034) ng/mL NT-Pro-B Natriuret Pep pg/mL Total Protein (6.3-8.2) g/dL Albumin (3.5-5.0) g/dL Urine Color Urine Appearance (Clear) Urine pH (5.0-8.0) Ur Specific Hessel (1.001-1.035) Urine Protein (Negative) Urine Glucose (UA) (Negative) Urine Ketones (Negative) Urine Blood (Negative) Urine Nitrite (Negative) Urine Bilirubin (Negative) Urine Urobilinogen (<2.0) mg/dL Ur Leukocyte Esterase (Negative) Urine RBC (0-5) /hpf Urine WBC (0-5) /hpf Ur Squamous Epith Cells (0-4) /hpf Urine Bacteria (None) /hpf Urine Mucus (None) /hpf Urine Opiates Screen (NotDetected) Ur Oxycodone Screen (NotDetected) Urine Methadone Screen (NotDetected) Ur Barbiturates Screen (NotDetected) U Tricyclic Antidepress (NotDetected) Ur Phencyclidine Scrn (NotDetected) Ur Amphetamines Screen (NotDetected) U Methamphetamines Scrn (NotDetected) U Benzodiazepines Scrn (NotDetected) Urine Cocaine Screen (NotDetected) U Marijuana (THC) Screen (NotDetected) Serum Alcohol mg/dL Influenza Type A (PCR) (Not Detectd) Influenza Type B (PCR) (Not Detectd) RSV (PCR) (Not Detectd) SARS-CoV-2 (PCR) (Not Detectd) - EKG Data -: EKG Interpreted by Me EKG Comments: 12-lead Electrocardiogram Interpretation Note EKG was reviewed and interpreted by myself. 12-lead ECG performed at 0843 is interpreted by me as revealing A-fib with RVR at a rate of 148 beats per minute. [place] is normal. QRS duration is 102 ms, QTc is 367 ms.. There were no ST or T wave abnormalities to suggest myocardial ischemia or injury. R wave progression across the precordium was delayed. By my interpretation this EKG is non-diagnostic for acute ischemia. Critical Care Time Critical Care Time: Yes Total Critical Care Time: 36 Disposition Clinical Impression: Sepsis, Pneumonia, Acute hypoxic respiratory failure, DNR (do not resuscitate), BiPAP (biphasic positive airway pressure) dependence Disposition: ADMITTED IP TO THIS HOSP Condition: Serious Time of Disposition: 11:00
[2024-06-18] MEDS: methylPREDNISolone SOD SUCCI 40 MG/ML 1 ML VIAL IV STA (11:48)
[2024-06-18] MEDS: ASPIRIN 81 MG PO STA (12:04)
[2024-06-18 12:13] LABS: Glucose,Whole Blood 316 mg/dL (70-110)
[2024-06-18] MEDS: FUROSEMIDE 10 MG/ML 4 ML VIAL IV STA (12:15)
[2024-06-18] MEDS: ACETAMINOPHEN SUPPOSITORY 650 MG SUPP RECTAL STA (12:29)
[2024-06-18] MEDS: ASPIRIN 300 MG SUPP RECTAL STA (12:29)
[2024-06-18] MEDS ORDERED: DEXTROSE 50% SYRINGE 50 ML IVP PRN ×2 (13:20)
[2024-06-18] MEDS: IPRATROPIUM-ALBUTEROL 3 ML NEB INHALATION SCH (13:28)
[2024-06-18] MEDS: IPRATROPIUM-ALBUTEROL 3 ML NEB INHALATION STA (13:28)
[2024-06-18] MEDS: AZITHROMYCIN 500 MG in SODIUM CHLORIDE 0.9% 250 ML IVPB SCH (13:31)
[2024-06-18] MEDS: ONDANSETRON 4 MG/2 ML VIAL IVP PRN (13:42)
[2024-06-18] MEDS: INSULIN ASPART (NovoLOG) 100 UNIT/ML VIAL SQ SCH (13:45)
[2024-06-18 14:59] LABS: ABG Base Excess -1.9 mmol/L; ABG HCO3 21 mmol/L (21-25); ABG Oxygen Saturation 96.8 % (94-97); ABG PCO2 30 mmHg (35-45); ABG PH 7.45 (7.35-7.45); ABG PO2 82 mmHg (83-108); ABG TCO2 22 mmol/L (19-24); Allen Test Performed? Yes
[2024-06-18] MEDS: ACETAMINOPHEN IV (For NPO) 1,000 MG in EMPTY BAG 1 BAG IVPB PRN (16:28)
[2024-06-18 16:45] LABS: Glucose,Whole Blood 346 mg/dL (70-110)
[2024-06-18] MEDS ORDERED: SENNOSIDES 8.6 MG TAB PO SCH (17:00)
[2024-06-18] MEDS ORDERED: METOPROLOL SUCCINATE (ER) 50 MG TAB.ER.24H PO SCH (17:00)
--- NOTE | 2024-06-18 17:27 | P.HPIM ---
History of Present Illness H&P Date: 06/18/24 Patient is a 78-year-old female with past medical history significant for dementia, hxp-crxdwoo-bdnffdbmj diabetes mellitus, history of frequent UTIs, and hypertension presents to the emergency department today for fever and dyspnea for 1 day. Patient resides at [facility], present at bedside to present history. states that for the last few days he has noticed that the patient has had clammy skin and felt warm to touch. He notes that the increased work of breathing began today. He also reports a history of frequent UTIs but denies that she ever has worsening mental status or fevers with these UTIs. He denies any history of CHF, A-fib, sick contacts. Patient has not been coughing. Initial vitals: T 102.3, [place] [id number] bpm, RR 33-41, BP 127/93, oxygen 93% on 2 L nasal cannula. Initial labs: WBC 19.9, hemoglobin 16.2, hematocrit 46.8, platelets 330, sodium 131, potassium 4.4slight hemolysis, chloride 95, CO2 23, BUN 37, creatinine 0.69, glucose 283, AST 38, ALT 24, alkaline phosphatase 44, ammonia 11, troponin X1 0.057. Viral panel negative. Initial urinalysis: 1+ protein, 1+ ketone, moderate blood, 26 RBC, 7 WBC, rare bacteria, occasional mucus. Initial chest x-ray independently interpreted: Pulmonary vascular congestion. Initial EKG independently interpreted: Atrial fibrillation with rapid ventricular rate (148 bpm), left axis deviation ED documentation reviewed. In the ED she received IV vancomycin x 1, Lopressor 2.5 mg IV x 2, Solu-Medrol IV 40 mg x 1 lactated Ringer's IV 1.5 L x 1, aspirin 300 mg rectal x 1, acetaminophen 1000 mg IV x 1, acetaminophen 650 mg rectal x 1. Review of systems: Unable to assess due to dementia. Social history: Tobacco: Quit 50 years ago Alcohol: None reported Recreational drugs: None reported Travel: None reported Sick contacts: None reported Physical examination: Vital signs reviewed General: Acute respiratory distress Derm: Warm, dry, intact Head: Atraumatic, normocephalic, symmetric Eyes: EOMI, anicteric sclera Mouth: No lip lesion, mucus membranes moist Cardiovascular: S1-S2 present Lungs: Diffuse rhonchi bilaterally, no rales, presence of accessory muscle use Abdominal: Non-tender to palpation, distended Extremities: No cyanosis, clubbing, or pedal edema Neuro: Alert, oriented x 0, gross neurological examination did not reveal any focal deficits. Cranial nerves II to XII grossly intact. Assessment and Plan: Patient is a 78-year-old female with a past medical history significant for dementia, fki-bcphyai-wqciscvay diabetes mellitus, history of frequent UTIs, and hypertension admitted for fever and acute respiratory failure. Active #. Sepsis, severe with acute hypoxemic respiratory failure #. Lactic acidosis #. Leukocytosis Criteria met: T 102.3, tachycardic, tachypneic, leukocytosis, lactic acidosis, end-organ damage Unknown source Lactated Ringer's at 130 cc/h IV cefepime 2 g every 8 hours IV vancomycin every 12 hours Obtain blood cultures Obtain Legionella antigen and culture Obtain MRSA screening Obtain procalcitonin Monitor CBC and CMP in the morning Oxygen supplementation as needed to maintain O2 saturation >94% IV Solu-Medrol 40 mg every 12 hours #. Atrial fibrillation with rapid ventricular rate, new onset Likely responsive to sepsis IV metoprolol 5 mg every 6 hours Chronic #. Hypertension Home meds on hold due to hypotension #. Hxb-nbyfvnp-qekmsihfo diabetes mellitus Insulin sliding scale Accu-Cheks ACHS Monitor for hypoglycemia Hold metformin #. Dyslipidemia Lipitor 40 mg PO at bedtime #. Gout Allopurinol 300 mg PO daily #. Advanced dementia DVT prophylaxis: Subcutaneous heparin every 8 hours The patient is admitted with an anticipated less than 2 midnight stay for evaluation of fever and acute respiratory failure. CODE STATUS: No code Discussed with: Patient's and Dr. Beaulieu Anticipated discharge place: [facility] Anticipated discharge time: Pending clinical course I saw and evaluated the patient during the infante and critical portions of this encounter, and discussed the case in detail with the resident author of this not e, I agree with the Assessment and Plan, and my changes, if any, are highlighted in blue. Past Medical History Past Medical History: Dementia, GERD/Reflux, Hypertension, Pneumonia, Sleep Apnea/CPAP/BIPAP Additional Past Medical History / Comment(s): hx migraines,sjogrens,hx pneumonia, hx kidney stones History of Any Multi-Drug Resistant Organisms: MRSA Date of last positivie culture/infection: 06/02/24 MDRO Source:: BUTTOCK, urine Past Surgical History: Section, Cholecystectomy, Hysterectomy, Joint Replacement Additional Past Surgical History / Comment(s): ariana knee and rt shoulder replacement, cataracts, surgery on left thumb and wrist, Past Anesthesia/Blood Transfusion Reactions: Previous Problems w/ Anesthesia Additional Past Anesthesia/Blood Transfusion Reaction / Comment(s): "almost aspirated" Past Psychological History: Anxiety Smoking Status: Unknown if ever smoked Past Alcohol Use History: None Reported Past Drug Use History: None Reported - Past Family History Father Family Medical History: Cancer Additional Family Medical History / Comment(s): colon cancer Medications and Allergies Home Medications Medication Instructions Recorded Confirmed Type Atorvastatin [Lipitor] 40 mg PO HS@2100 06/28/14 06/18/24 History allopurinoL [Zyloprim] 300 mg PO DAILY@0800 06/28/14 06/18/24 History Acetaminophen Tab [Tylenol] 500 mg PO Q4H PRN 02/17/24 06/18/24 History Budesonide [Budesonide ER] 9 mg PO DAILY@0800 02/17/24 06/18/24 History Escitalopram [Lexapro] 10 mg PO DAILY@0800 02/17/24 06/18/24 History Elias Packet 1 packet PO BID@0800,1700 02/17/24 06/18/24 History Magnesium Oxide [Mag-Ox] 400 mg PO DAILY@0800 02/17/24 06/18/24 History Metoprolol Succinate (ER) [Toprol 50 mg PO BID@0800,1700 02/17/24 06/18/24 History XL] Spironolactone 50 mg PO DAILY@0800 02/17/24 06/18/24 History Tolterodine ER [Detrol LA] 2 mg PO DAILY@0800 02/17/24 06/18/24 History metFORMIN HCL [Glucophage] 1,000 mg PO BID@0800,1700 02/17/24 06/18/24 History Glucerna Shake 1 can PO W/LUNCH 06/18/24 06/18/24 History Magnesium Hydroxide [Milk of 7,200 mg PO Q48H PRN 06/18/24 06/18/24 History Magnesia Concentrate] Na Phos,M-B/Na Phos,Di-Ba [Fleet 133 ml RECTAL DAILY PRN 06/18/24 06/18/24 History Adult] Sennosides [Senokot] 8.6 mg PO BID@0800,1700 06/18/24 06/18/24 History amLODIPine [Norvasc] 5 mg PO DAILY@0800 06/18/24 06/18/24 History bisacodyL [Dulcolax] 10 mg RECTAL DAILY PRN 06/18/24 06/18/24 History Allergies Allergy/AdvReac Type Severity Reaction Status Date / Time No Known Allergies Allergy Verified 02/17/24 14:10 Physical Exam Osteopathic Statement: *. No significant issues noted on an osteopathic structural exam other than those noted in the History and Physical/Consult. Vitals: Vital Signs Temp Pulse Resp BP Pulse Ox 06/18/24 10:30 102.3 F H 123 H 41 H 146/91 93 L 06/18/24 10:15 134 H 41 H 109/95 92 L 06/18/24 09:45 170 H 39 H 124/79 91 L 06/18/24 09:15 176 H 35 H 120/103 93 L 06/18/24 08:45 146 H 33 H 127/93 93 L 06/18/24 08:17 102.7 F H 168 H 32 H 130/109 92 L Intake and Output 06/17/24 06/18/24 06/18/24 22:59 06:59 14:59 Other: Weight 109.406 kg Results CBC & Chem 7: 06/18/24 08:35 06/18/24 08:35 Labs: Abnormal Lab Results - Last 24 Hours (Table) 06/18/24 06/18/24 06/18/24 Range/Units 08:35 08:35 08:35 WBC 19.9 H (3.8-10.6) k/uL Hgb 16.2 H (11.4-16.0) gm/dL Hct 46.8 H (34.0-46.0) % Neutrophils # 17.5 H (1.3-7.7) k/uL Lymphocytes # 0.8 L (1.0-4.8) k/uL Monocytes # 1.2 H (0-1.0) k/uL Sodium 131 L (137-145) mmol/L Chloride 95 L (98-107) mmol/L BUN 37 H (7-17) mg/dL Glucose 283 H (74-99) mg/dL POC Glucose (mg/dL) (70-110) mg/dL AST 38 H (14-36) U/L Troponin I 0.057 H* (0.000-0.034) ng/mL Urine Protein (Negative) Urine Ketones (Negative) Urine Blood (Negative) Urine RBC (0-5) /hpf Urine WBC (0-5) /hpf Urine Bacteria (None) /hpf Urine Mucus (None) /hpf 06/18/24 06/18/24 Range/Units 09:02 09:58 WBC (3.8-10.6) k/uL Hgb (11.4-16.0) gm/dL Hct (34.0-46.0) % Neutrophils # (1.3-7.7) k/uL Lymphocytes # (1.0-4.8) k/uL Monocytes # (0-1.0) k/uL Sodium (137-145) mmol/L Chloride (98-107) mmol/L BUN (7-17) mg/dL Glucose (74-99) mg/dL POC Glucose (mg/dL) 279 H (70-110) mg/dL AST (14-36) U/L Troponin I (0.000-0.034) ng/mL Urine Protein 1+ H (Negative) Urine Ketones 1+ H (Negative) Urine Blood Moderate H (Negative) Urine RBC 26 H (0-5) /hpf Urine WBC 7 H (0-5) /hpf Urine Bacteria Rare H (None) /hpf Urine Mucus Occasional H (None) /hpf
[2024-06-18] MEDS: METOPROLOL TARTRATE 5 MG/5 ML VIAL IVP SCH (17:31)
[2024-06-18] MEDS: KETOROLAC 15 MG/ML 1 ML VIAL IVP PRN (19:56)
[2024-06-18] MEDS: SODIUM CHLORIDE 0.9% 1,000 ML IV ONE (19:57)
[2024-06-18] MEDS: LACTATED RINGERS 1,000 ML IV SCH (19:58)
[2024-06-18] MEDS: ATORVASTATIN 40 MG TAB PO SCH (21:45)
[2024-06-18] MEDS: methylPREDNISolone SOD SUCCI 40 MG/ML 1 ML VIAL IV SCH (21:58)
[2024-06-18] MEDS: VANCOMYCIN 1,750 MG in SODIUM CHLORIDE 0.9% 500 ML 500 ML IVPB SCH ×2 (23:10→23:11)
[2024-06-18] MEDS: HEPARIN SODIUM,PORCINE 5,000 UNIT/ML 1 ML VIAL SQ SCH (23:40)
--- NOTE | 2024-06-19 00:07 | CT ---
EXAMINATION TYPE: CT ChestAbdPelvis w con CT DLP: 2886.2 mGycm, Automated exposure control for dose reduction was used. DATE OF EXAM: 06/18/2024 11:18 PM COMPARISON: Chest radiograph 06/18/2024, renal ultrasound 02/17/2024 CLINICAL INDICATION:Female, 78 years old with history of sepsis; PHH, sepsis Technique: Multiple axial images of the chest, abdomen, and pelvis were obtained following the intrav enous administration of 100 mL Isovue-300. Two-dimensional coronal and sagittal reconstructions were obtained. Findings: CHEST: LUNGS/ PLEURA: No pleural effusion or pneumothorax. Bilateral lower lobe patchy consolidative opaciti es. Limited evaluation due to respiratory motion. AIRWAY: Patent and unremarkable.. HEART: Mildly enlarged.No pericardial effusion. Small coronary artery calcifications. Dense mitral an nulus calcifications. MEDIASTINUM: No gross evidence of adenopathy. VASCULATURE: No aortic aneurysm. Mild atherosclerotic calcification of the aorta and its branches. MUSCULOSKELETAL: No acute osseous abnormalities. Right shoulder arthroplasty changes. Multilevel dege nerative disc disease. SOFT TISSUES/LYMPH NODES: Unremarkable. LOWER NECK: No significant findings. ABDOMEN: ABDOMEN LIVER: Couple of hypodense lesions within the liver with largest measuring 2.6 cm consistent with a c yst. GALLBLADDER AND BILE DUCTS: The gallbladder is surgically absent. No biliary duct dilatation. PANCREAS: Unremarkable. SPLEEN: Unremarkable. ADRENAL GLANDS: Unremarkable. KIDNEYS AND URETERS: No evidence of left hydronephrosis. Mild right hydronephrosis without obstructin g calculus. No right renal calculi. Nonobstructive left mid kidney 5 mm calculus. The kidneys enhance symmetrically. Couple of bilateral subcentimeter cortical cysts. Contrast is demonstrated within bot h collecting systems on the delayed phase. No perinephric fluid collections. Minimal bilateral perine phric fat stranding. PELVIS BLADDER: Nondistended with Gibbs catheter in place. REPRODUCTIVE: The uterus is surgically absent. ABDOMEN & PELVIS STOMACH AND BOWEL: Distended fluid and gas-filled stomach. Normal caliber duodenum. Rectal fecaloma m easuring up to 9.7 cm. Rectal catheter identified which may represent a temperature probe. No focal w all thickening involving the rectum or surrounding inflammatory changes. Redundant sigmoid colon. Reg ions of collapsed descending colon. Dilated gas and stool-filled cecum measuring up to 10.4 cm. Regio ns of prominent gas and stool filled transverse colon. No definitive pneumatosis. No evidence of adolfo l obstruction. PERITONEUM: No evidence of pneumoperitoneum or free fluid. VASCULATURE: Mild atherosclerotic calcifications are present throughout the abdominal aorta and its b ranches. No abdominal aortic aneurysm. Pelvic phleboliths. MUSCULOSKELETAL: No acute osseous abnormalities . Degenerative changes of the pubic symphysis. Degene rative changes of the bilateral SI joints. Grade 1 anterolisthesis of L4 on L5 without evidence of pa rs defects. Multilevel degenerative disc disease. LYMPH NODES: No evidence for lymphadenopathy. SOFT TISSUE/ABDOMINAL WALL: Small fat filled umbilical hernia. IMPRESSION: 1. Mild right hydronephrosis without obstructing calculus. 2. Nonobstructive left renal calculus. 3. Regions of dilated gas and stool-filled colon without focal transition point. Additional rectal f ecaloma without surrounding inflammatory changes. Correlate for colonic ileus. 4. Fluid and gas filled stomach without focal transition point. Correlate for gastric ileus. 5. Bilateral lower lobe patchy consolidation and atelectasis. Underlying infectious process is not ex cluded. [facility], , 06/19/2024 12:05 AM
[2024-06-19 01:09] LABS: Basophils % (A) 0 %; Eosinophils % (A) 0 %; HCT 41.5 % (34.0-46.0); HGB 13.5 gm/dL (11.4-16.0); Lymphocytes # (A) 0.7 k/uL (1.0-4.8); Lymphocytes % (A) 4 %; MCH 30.4 pg (25.0-35.0); MCHC 32.5 g/dL (31.0-37.0); MCV 93.7 fL (80.0-100.0); Mean Platelet Volume 7.4; Monocytes # (A) 0.7 k/uL (0-1.0); Monocytes % (A) 5 %; Neutrophils # (A) 13.5 k/uL (1.3-7.7); Neutrophils % (A) 90 %; Platelet Count 212 k/uL (150-450); RBC 4.43 m/uL (3.80-5.40); RDW 13.5 % (11.5-15.5)
[2024-06-19 01:23] LABS: ALT 27 U/L (4-34); AST 43 U/L (14-36); African American GFR (CKD) 90 (>60 ml/min/1.73 sqM); Alkaline Phosphatase 48 U/L (38-126); Anion Gap 10 mmol/L; Blood Urea Nitrogen 43 mg/dL (7-17); Calcium 8.6 mg/dL (8.4-10.2); Carbon Dioxide 21 mmol/L (22-30); Chloride 100 mmol/L (98-107); Glucose 312 mg/dL (74-99); Non-African American GFR(CKD) 78 (>60 ml/min/1.73 sqM); Potassium 4.1 mmol/L (3.5-5.1); Sodium 131 mmol/L (137-145); Total Bilirubin 1.1 mg/dL (0.2-1.3); Total Protein 5.4 g/dL (6.3-8.2)
[2024-06-19 07:05] LABS: Glucose,Whole Blood 311 mg/dL (70-110)
[2024-06-19] MEDS ORDERED: MAGNESIUM OXIDE 400 MG TAB PO SCH (08:00)
[2024-06-19] MEDS ORDERED: ESCITALOPRAM 10 MG TAB PO SCH (08:00)
[2024-06-19] MEDS ORDERED: BUDESONIDE 9 MG PO SCH (08:00)
[2024-06-19] MEDS: allopurinoL 300 MG TAB PO SCH (08:17)
[2024-06-19] MEDS ORDERED: HEPARIN SODIUM 1,000 UN/ML (10ML VL) IV PRN (08:42)
[2024-06-19] MEDS ORDERED: METOPROLOL TARTRATE 5 MG/5 ML VIAL IVP PRN (08:43)
[2024-06-19] MEDS: HEPARIN SODIUM 1,000 UN/ML (10ML VL) IV ONE (09:06)
[2024-06-19] MEDS: HEPARIN SOD,PORK IN 0.45% NACL 25,000 UNIT in 0.45% NACL 1 250ML.BAG IV SCH (09:07)
[2024-06-19] MEDS: DILTIAZEM DRIP BOLUS FROM BAG 1 MG SOLN IV ONE (09:09)
[2024-06-19] MEDS: DILTIAZEM 125 MG in SODIUM CHLORIDE 0.9% 100 ML IV SCH (09:10)
--- NOTE | 2024-06-19 11:10 | P.PN ---
Subjective Progress Note Date: 06/19/24 No new complaints today. Pt was found to have colonic ileus on CT C/A/P yesterday. Had NGT ordered by pulmonology who is also discussing hospice care with patient's . Gen: In NAD, non-toxic HEENT: normocephalic, atraumatic, hearing acuity is intant, mucous membranes moist CVS: perfusing all extremities well, bilateral pitting edema, Respiratory: symmetric chest expansion, minimal accessory muscle use, GI: NTTP, distended diffusely : no suprapubic tenderness, no CVA tenderness MSK/Derm: no rashes, cyanosis Neuro: CN II-XII intact, no motor weakness, Hospital course: Patient is a 78-year-old female with past medical history significant for dementia, lxp-manogyk-xebzrfzbo diabetes mellitus, history of frequent UTIs, and hypertension presented to the emergency department today for fever and dyspnea for 1 day. Initial vitals: T 102.3, [place] [id number] bpm, RR 33-41, BP 127/93, oxygen 93% on 2 L nasal cannula. Initial labs: WBC 19.9, hemoglobin 16.2, hematocrit 46.8, platelets 330, sodium 131, potassium 4.4slight hemolysis, chloride 95, CO2 23, BUN 37, creatinine 0.69, glucose 283, AST 38, ALT 24, alkaline phosphatase 44, ammonia 11, troponin X1 0.057. Viral panel negative. Initial urinalysis: 1+ protein, 1+ ketone, moderate blood, 26 RBC, 7 WBC, rare bacteria, occasional mucus. Initial chest x-ray independently interpreted: Pulmonary vascular congestion. Initial EKG independently interpreted: Atrial fibrillation with rapid ventricular rate (148 bpm), left axis deviation Assessment and Plan: Patient is a 78-year-old female with a past medical history significant for dementia, vye-xxkjelh-orbhdsqhu diabetes mellitus, history of frequent UTIs, and hypertension admitted for fever and acute respiratory failure. Active #. Sepsis, severe with acute hypoxemic respiratory failure #. Lactic acidosis #. Leukocytosis #. Colonic Ileus Criteria met: T 102.3, tachycardic, tachypneic, leukocytosis, lactic acidosis, end-organ damage Unknown source, but felt to be abdominal, continue NGT Lactated Ringer's at 130 cc/h IV cefepime 2 g every 8 hours IV vancomycin every 12 hours can be discontinued ID consultation Consideration of hospice care Obtain blood cultures Obtain Legionella antigen and culture Obtain MRSA screening Obtain procalcitonin = 0.13 Monitor CBC and CMP in the morning Oxygen supplementation as needed to maintain O2 saturation >94% IV Solu-Medrol 40 mg every 12 hours #. Atrial fibrillation with rapid ventricular rate, new onset Likely responsive to sepsis IV metoprolol 5 mg every 6 hours Chronic #. Hypertension Home meds on hold due to hypotension #. Qpg-ihsbwng-rrartshil diabetes mellitus Insulin sliding scale Accu-Cheks ACHS Monitor for hypoglycemia Hold metformin #. Dyslipidemia Lipitor 40 mg PO at bedtime #. Gout Allopurinol 300 mg PO daily #. Advanced dementia DVT prophylaxis: Subcutaneous heparin every 8 hours The patient is admitted with an anticipated less than 2 midnight stay for evaluation of fever and acute respiratory failure. CODE STATUS: No code Anticipated discharge place: [facility] Anticipated discharge time: Pending clinical course Objective - Vital Signs Vital signs: Vital Signs Temp 100.6 F H 06/19/24 10:11 Pulse 120 H 06/19/24 10:11 Resp 26 H 06/19/24 10:11 BP 157/98 06/19/24 10:11 Pulse Ox 96 06/19/24 10:11 FiO2 50 06/19/24 07:55 Intake & Output 06/18/24 06/19/24 06/19/24 18:59 06:59 18:59 Output Total 450 Balance -450 Weight 109.406 kg Output: Urine 450 Uretheral (Gibbs) 300 - Labs CBC & Chem 7: 06/19/24 00:44 06/19/24 00:44 Labs: Abnormal Lab Results - Last 24 Hours (Table) 06/18/24 06/18/24 06/18/24 Range/Units 10:59 12:08 12:52 WBC (3.8-10.6) k/uL Neutrophils # (1.3-7.7) k/uL Lymphocytes # (1.0-4.8) k/uL ABG pCO2 (35-45) mmHg ABG pO2 (83-108) mmHg Sodium (137-145) mmol/L Carbon Dioxide (22-30) mmol/L BUN (7-17) mg/dL Glucose (74-99) mg/dL POC Glucose (mg/dL) 316 H (70-110) mg/dL Plasma Lactic Acid Juancarlos 4.6 H* (0.7-2.0) mmol/L AST (14-36) U/L Troponin I 0.120 H* (0.000-0.034) ng/mL Total Protein (6.3-8.2) g/dL Albumin (3.5-5.0) g/dL 06/18/24 06/18/24 06/18/24 Range/Units 14:27 14:51 15:51 WBC (3.8-10.6) k/uL Neutrophils # (1.3-7.7) k/uL Lymphocytes # (1.0-4.8) k/uL ABG pCO2 30 L (35-45) mmHg ABG pO2 82 L (83-108) mmHg Sodium (137-145) mmol/L Carbon Dioxide (22-30) mmol/L BUN (7-17) mg/dL Glucose (74-99) mg/dL POC Glucose (mg/dL) (70-110) mg/dL Plasma Lactic Acid Juancarlos 6.2 H* (0.7-2.0) mmol/L AST (14-36) U/L Troponin I 0.098 H* (0.000-0.034) ng/mL Total Protein (6.3-8.2) g/dL Albumin (3.5-5.0) g/dL 06/18/24 06/18/24 06/18/24 Range/Units 16:43 18:14 21:50 WBC (3.8-10.6) k/uL Neutrophils # (1.3-7.7) k/uL Lymphocytes # (1.0-4.8) k/uL ABG pCO2 (35-45) mmHg ABG pO2 (83-108) mmHg Sodium (137-145) mmol/L Carbon Dioxide (22-30) mmol/L BUN (7-17) mg/dL Glucose (74-99) mg/dL POC Glucose (mg/dL) 346 H (70-110) mg/dL Plasma Lactic Acid Juancarlos 4.3 H* 2.8 H* (0.7-2.0) mmol/L AST (14-36) U/L Troponin I (0.000-0.034) ng/mL Total Protein (6.3-8.2) g/dL Albumin (3.5-5.0) g/dL 06/19/24 06/19/24 06/19/24 Range/Units 00:44 00:44 00:52 WBC 15.0 H (3.8-10.6) k/uL Neutrophils # 13.5 H (1.3-7.7) k/uL Lymphocytes # 0.7 L (1.0-4.8) k/uL ABG pCO2 (35-45) mmHg ABG pO2 (83-108) mmHg Sodium 131 L (137-145) mmol/L Carbon Dioxide 21 L (22-30) mmol/L BUN 43 H (7-17) mg/dL Glucose 312 H (74-99) mg/dL POC Glucose (mg/dL) (70-110) mg/dL Plasma Lactic Acid Juancarlos 2.7 H* (0.7-2.0) mmol/L AST 43 H (14-36) U/L Troponin I (0.000-0.034) ng/mL Total Protein 5.4 L (6.3-8.2) g/dL Albumin 3.0 L (3.5-5.0) g/dL 06/19/24 06/19/24 Range/Units 03:42 07:04 WBC (3.8-10.6) k/uL Neutrophils # (1.3-7.7) k/uL Lymphocytes # (1.0-4.8) k/uL ABG pCO2 (35-45) mmHg ABG pO2 (83-108) mmHg Sodium (137-145) mmol/L Carbon Dioxide (22-30) mmol/L BUN (7-17) mg/dL Glucose (74-99) mg/dL POC Glucose (mg/dL) 311 H (70-110) mg/dL Plasma Lactic Acid Juancarlos 2.9 H* (0.7-2.0) mmol/L AST (14-36) U/L Troponin I (0.000-0.034) ng/mL Total Protein (6.3-8.2) g/dL Albumin (3.5-5.0) g/dL
[2024-06-19 11:24] LABS: Basophils # (A) 0.1 k/uL (0-0.2); Basophils % (A) 0 %; Eosinophils % (A) 0 %; HCT 45.7 % (34.0-46.0); HGB 14.7 gm/dL (11.4-16.0); Hypochromasia Slight; Lymphocytes # (A) 0.8 k/uL (1.0-4.8); Lymphocytes % (A) 4 %; MCH 31.4 pg (25.0-35.0); MCHC 32.1 g/dL (31.0-37.0); MCV 97.7 fL (80.0-100.0); Mean Platelet Volume 8.1; Monocytes # (A) 1.1 k/uL (0-1.0); Monocytes % (A) 6 %; Neutrophils # (A) 17.7 k/uL (1.3-7.7); Neutrophils % (A) 89 %; Platelet Count 201 k/uL (150-450); RBC 4.68 m/uL (3.80-5.40); RDW 13.5 % (11.5-15.5)
--- NOTE | 2024-06-19 11:50 | XR ---
EXAMINATION TYPE: XR chest 1V confirm line plcmt DATE OF EXAM: 06/19/2024 11:17 AM COMPARISON: Chest radiographs from 06/18/2024 CLINICAL INDICATION: Female, 78 years old with history of OG placement; TECHNIQUE: XR chest 1V confirm line plcmt Frontal view of the chest. FINDINGS: Lungs/Pleura: There is no evidence of pleural effusion, focal consolidation, or pneumothorax. Pulmonary vascularity: Unremarkable. Heart/mediastinum: Cardiomediastinal silhouette is unremarkable. Musculoskeletal: No acute osseous pathology. Nasogastric tube in appropriate position. IMPRESSION: Nasogastric tube in appropriate position. [facility], , 06/19/2024 11:48 AM
--- NOTE | 2024-06-19 12:00 | P.CRDCN ---
History of Present Illness History of present illness: HISTORY OF PRESENT ILLNESS: This is a 78-year-old female with a past medical history significant for obesity, hypertension, hyperlipidemia, and diabetes. Patient does not follow with a human resource consultant. We have been asked to see the patient in consultation for A-fib with RVR. Patient examined at the bedside in the emergency room. Patient was brought to the ER from [place] with secondary to shortness of breath. Patient is currently lethargic at the time of examination and unable to provide any history. She is currently on a BiPAP. Patient was also found to be in A- fib with RVR. There is no known documented history of atrial fibrillation. At the time of examination, patient remains in atrial fibrillation with a heart rate in the 140s. DIAGNOSTICS: - EKG reveals atrial fibrillation with RVR - Chest xray cardiomegaly and mild pulmonary vascular congestion. - Laboratory data: WBC 20.0. Hemoglobin 14.7. Platelet count 201. Sodium 131. Potassium 4.1. BUN 43. Creatinine 0.75. Lactic acid 2.9. proBNP 957. Troponin 0.057. 0.120. 0.098. - Current home cardiac medications include Lipitor 40 mg at night, spironolactone 50 mg daily, amlodipine 5 mg daily, metoprolol succinate 50 mg twice a day - Most recent echocardiogram obtained in May 2023 revealed ejection fr action 55 to 60%, no obvious regional wall motion abnormalities, mild concentric LVH, aortic sclerosis without stenosis. - Cardiac catheterization history: Unknown REVIEW OF SYSTEMS: At the time of my exam: Unable to obtain thorough review of systems secondary to lethargy PHYSICAL EXAM: VITAL SIGNS: Reviewed. GENERAL: Well-developed in no acute distress. HEENT: Head is normocephalic. Pupils are equal, round. Sclerae anicteric. Mucous membranes of the mouth are moist. Neck supple. No JVD or thyromegaly LUNGS: Respirations even and unlabored. Lungs diminished with rhonchi. Currently on BiPAP. HEART: Tachycardic. Irregular rate and rhythm. S1 and S2 heard. ABDOMEN: Soft. Nondistended. Nontender. EXTREMITIES: Normal range of motion. No clubbing or cyanosis. Peripheral pulses intact. No lower extremity edema NEUROLOGIC: Lethargic ASSESSMENT: Acute hypoxic respiratory failure Sepsis Colonic ileus New onset atrial fibrillation with RVR Elevated troponins, type II IL secondary to oxygen supply and demand mismatch Hypertension Hyperlipidemia Diabetes Obesity: BMI 36.7 PLAN: Obtain 2D echo to assess cardiac structure and function Begin IV heparin bolus and infusion Begin IV Cardizem bolus and infusion to maintain heart rate less than 100 Patient currently NPO. Will also add IV push metoprolol for heart rate control as needed Continue telemetry monitoring Further recommendations pending patient course Nurse practitioner note has been reviewed by physician. Signing provider agrees with the documented findings, assessment, and plan of care documented by APPLICATIONS SALES CONSULTANT as a scribe. Past Medical History Past Medical History: Dementia, GERD/Reflux, Hypertension, Pneumonia, Sleep Apnea/CPAP/BIPAP Additional Past Medical History / Comment(s): hx migraines,sjogrens,hx pneumonia, hx kidney stones History of Any Multi-Drug Resistant Organisms: MRSA Date of last positivie culture/infection: 06/02/24 MDRO Source:: BUTTOCK, urine Past Surgical History: Section, Cholecystectomy, Hysterectomy, Joint Replacement Additional Past Surgical History / Comment(s): ariana knee and rt shoulder r eplacement, cataracts, surgery on left thumb and wrist, Past Anesthesia/Blood Transfusion Reactions: Previous Problems w/ Anesthesia Additional Past Anesthesia/Blood Transfusion Reaction / Comment(s): "almost aspirated" Past Psychological History: Anxiety Smoking Status: Unknown if ever smoked Past Alcohol Use History: None Reported Past Drug Use History: None Reported - Past Family History Father Family Medical History: Cancer Additional Family Medical History / Comment(s): colon cancer Medications and Allergies Home Medications Medication Instructions Recorded Confirmed Type Atorvastatin [Lipitor] 40 mg PO HS@2100 06/28/14 06/18/24 History allopurinoL [Zyloprim] 300 mg PO DAILY@0800 06/28/14 06/18/24 History Acetaminophen Tab [Tylenol] 500 mg PO Q4H PRN 02/17/24 06/18/24 History Budesonide [Budesonide ER] 9 mg PO DAILY@79902/17/24 06/18/24 History Escitalopram [Lexapro] 10 mg PO DAILY@79902/17/24 06/18/24 History Elias Packet 1 packet PO BID@0800,1700 02/17/24 06/18/24 History Magnesium Oxide [Mag-Ox] 400 mg PO DAILY@0802/17/24 06/18/24 History Metoprolol Succinate (ER) [Toprol 50 mg PO BID@0800,1700 02/17/24 06/18/24 History XL] Spironolactone 50 mg PO DAILY@0800 02/17/24 06/18/24 History Tolterodine ER [Detrol LA] 2 mg PO DAILY@0800 02/17/24 06/18/24 History metFORMIN HCL [Glucophage] 1,000 mg PO BID@0800,1700 02/17/24 06/18/24 History Glucerna Shake 1 can PO W/LUNCH 06/18/24 06/18/24 History Magnesium Hydroxide [Milk of 7,200 mg PO Q48H PRN 06/18/24 06/18/24 History Magnesia Concentrate] Na Phos,M-B/Na Phos,Di-Ba [Fleet 133 ml RECTAL DAILY PRN 06/18/24 06/18/24 History Adult] Sennosides [Senokot] 8.6 mg PO BID@0800,1700 06/18/24 06/18/24 History amLODIPine [Norvasc] 5 mg PO DAILY@0800 06/18/24 06/18/24 History bisacodyL [Dulcolax] 10 mg RECTAL DAILY PRN 06/18/24 06/18/24 History Allergies Allergy/AdvReac Type Severity Reaction Status Date / Time No Known Allergies Allergy Verified 02/17/24 14:10 Physical Exam Vitals: Vital Signs Temp Pulse Resp BP Pulse Ox FiO2 06/19/24 11:30 94 06/19/24 11:24 50 06/19/24 11:21 96 06/19/24 10:11 100.6 F H 120 H 26 H 157/98 96 06/19/24 08:45 100.9 F H 127 H 30 H 111/65 95 06/19/24 08:03 148 H 06/19/24 08:00 101.1 F H 112 H 28 H 147/92 96 06/19/24 07:55 50 06/19/24 07:52 132 H 06/19/24 06:41 102.0 F H 115 H 34 H 147/91 95 06/19/24 05:39 105 H 31 H 128/83 97 06/19/24 05:28 101.8 F H 147 H 32 H 136/105 97 06/19/24 04:51 139 H 32 H 06/19/24 04:36 134 H 30 H 50 06/19/24 03:30 135 H 34 H 135/82 96 06/19/24 02:48 101.7 F H 113 H 20 127/88 97 06/19/24 01:00 101 F H 111 H 30 H 138/92 96 06/19/24 00:02 112 H 30 H 06/18/24 23:51 110 H 30 H 50 06/18/24 23:00 101.5 F H 111 H 32 H 151/99 96 06/18/24 22:00 102.2 F H 116 H 31 H 141/70 96 06/18/24 21:30 102.4 F H 123 H 33 H 127/87 95 06/18/24 20:30 102.9 F H 135 H 32 H 131/83 95 06/18/24 19:52 113 H 36 H 06/18/24 19:42 111 H 31 H 06/18/24 19:40 50 06/18/24 19:30 103.3 F H 138 H 34 H 142/75 97 06/18/24 18:59 118 H 148/82 98 06/18/24 18:00 104.2 F H 100 31 H 143/86 98 06/18/24 16:07 102.5 F H 118 H 132/88 97 06/18/24 16:05 138 H 38 H 06/18/24 16:03 50 06/18/24 16:00 102.5 F H 129 H 24 132/88 95 06/18/24 15:00 134 H 41 H 131/97 95 06/18/24 13:56 102.3 F H 116 H 27 H 147/94 96 06/18/24 13:55 40 06/18/24 13:41 40 06/18/24 13:38 118 H 40 H 06/18/24 13:29 120 H 40 H 06/18/24 13:00 121 H 44 H 119/83 94 L 06/18/24 12:00 125 H 23 103/84 93 L Intake and Output 06/18/24 06/19/24 06/19/24 22:59 06:59 14:59 Output Total 150 300 Balance -150 -300 Output: Urine 150 300 Uretheral (Gibbs) 300 Results 06/19/24 10:56 06/19/24 00:44 Cardiac Enzymes 06/18/24 06/18/24 06/19/24 Range/Units 12:52 15:51 00:44 AST 43 H (14-36) U/L Troponin I 0.120 H* 0.098 H* (0.000-0.034) ng/mL CBC 06/19/24 06/19/24 Range/Units 00:44 10:56 WBC 15.0 H 20.0 H (3.8-10.6) k/uL RBC 4.43 4.68 (3.80-5.40) m/uL Hgb 13.5 14.7 (11.4-16.0) gm/dL Hct 41.5 45.7 (34.0-46.0) % Plt Count 212 201 (150-450) k/uL Comprehensive Metabolic Panel 06/19/24 Range/Units 00:44 Sodium 131 L (137-145) mmol/L Potassium 4.1 (3.5-5.1) mmol/L Chloride 100 (98-107) mmol/L Carbon Dioxide 21 L (22-30) mmol/L BUN 43 H (7-17) mg/dL Creatinine 0.75 (0.52-1.04) mg/dL Glucose 312 H (74-99) mg/dL Calcium 8.6 (8.4-10.2) mg/dL AST 43 H (14-36) U/L ALT 27 (4-34) U/L Alkaline Phosphatase 48 (38-126) U/L Total Protein 5.4 L (6.3-8.2) g/dL Albumin 3.0 L (3.5-5.0) g/dL Current Medications Generic Name Dose Route Start Last Admin Trade Name Freq PRN Reason Stop Dose Admin Albuterol/Ipratropium 3 ml 06/18/24 12:00 06/19/24 11:21 Ipratropium-Albuterol 3 Ml Neb INHALATION 3 ml RT-Q4H YUNIOR Administration Allopurinol 300 mg 06/19/24 08:00 06/19/24 08:17 Allopurinol 300 Mg Tab PO Not Given DAILY@0800 [facility] Atorvastatin Calcium 40 mg 06/18/24 21:00 06/18/24 21:45 Atorvastatin 40 Mg Tab PO Not Given HS@2100 YUNIOR Dextrose/Water 25 ml 06/18/24 13:20 Dextrose 50% Syringe 50 Ml IVP PER PROTOCOL PRN Hypoglycemia Protocol Dextrose/Water 50 ml 06/18/24 13:20 Dextrose 50% Syringe 50 Ml IVP PER PROTOCOL PRN Hypoglycemia Protocol Heparin Sodium (Porcine) 5,000 unit 06/19/24 00:00 06/19/24 09:07 Heparin Sodium,Porcine 5,000 Unit/Ml 1 Ml Vial SQ Not Given Q8HR YUNIOR Heparin Sodium (Porcine) 0 unit 06/19/24 08:42 Heparin Sodium 1,000 Un/Ml (10ml Vl) IV PER PROTOCOL PRN Low PTT Protocol Cefepime HCl 2 gm/ Sodium 100 mls @ 25 mls/hr 06/18/24 09:00 06/19/24 10:18 Chloride IVPB 25 mls/hr Q8H YUNIOR Administration Protocol Azithromycin 500 mg/ Sodium 250 mls @ 250 mls/hr 06/18/24 13:00 06/19/24 09:16 Chloride IVPB 06/20/24 09:59 250 mls/hr DAILY YUNIOR Administration Protocol Acetaminophen 1,000 mg/ IV 100 mls @ 400 mls/hr 06/18/24 12:40 06/19/24 06:49 Solution IVPB 06/19/24 23:00 400 mls/hr Q6H PRN Administration Fever and/ or Pain Lactated Ringer's 1,000 mls @ 130 mls/hr 06/18/24 19:15 06/19/24 02:09 Lactated Ringers IV 06/22/24 19:15 Not Given .Q7H42M YUNIOR Vancomycin HCl 1,750 mg/ 500 mls @ 167 mls/hr 06/18/24 23:00 06/18/24 23:10 Sodium Chloride IVPB 167 mls/hr Q12HR YUNIOR Administration Diltiazem HCl 125 mg/ Sodium 125 mls @ 5 mls/hr 06/19/24 08:45 06/19/24 09:10 Chloride IV 5 mg/hr .Q24H YUNIOR 5 mls/hr Administration 5 MG/HR Heparin Sodium/Sodium Chloride 250 mls @ 10 mls/hr 06/19/24 08:45 06/19/24 09:07 25,000 unit/ Sodium Chloride IV 9.14 units/kg/hr .Q24H YUNIOR 10 mls/hr Administration Protocol 9.14 UNITS/KG/HR Insulin Aspart 0 unit 06/18/24 13:30 06/19/24 07:07 Insulin Aspart (Novolog) 100 Unit/Ml Vial SQ 8 unit Q6H YUNIOR Administration Protocol Ketorolac Tromethamine 15 mg 06/18/24 19:09 06/18/24 19:56 Ketorolac 15 Mg/Ml 1 Ml Vial IVP 06/23/24 19:09 15 mg Q6HR PRN Administration Fever and/ or Pain Methylprednisolone Sodium Succinate 40 mg 06/18/24 21:00 06/19/24 09:15 Methylprednisolone Sod Succi 40 Mg/Ml 1 Ml Vial IV 40 mg Q12HR YUNIOR Administration Metoprolol Tartrate 5 mg 06/19/24 08:43 Metoprolol Tartrate 5 Mg/5 Ml Vial IVP Q6HR PRN Tachyarrhythmias Miscellaneous Information 0 each 06/20/24 22:00 Vancomycin Trough Due 1 Each Misc MISCELLANE 06/20/24 22:01 DIRECTED ONE Naloxone HCl 0.2 mg 06/18/24 11:21 Naloxone 0.4 Mg/Ml 1 Ml Vial IV Q2M PRN Opioid Reversal Ondansetron HCl 4 mg 06/18/24 11:21 06/18/24 13:42 Ondansetron 4 Mg/2 Ml Vial IVP 4 mg Q8HR PRN Administration Nausea And Vomiting Intake and Output 06/18/24 06/19/24 06/19/24 22:59 06:59 14:59 Output Total 150 300 Balance -150 -300 Output: Urine 150 300 Uretheral (Gibbs) 300 06/19/24 10:56 06/19/24 00:44
--- NOTE | 2024-06-19 12:24 | CA ---
Transthoracic Echo Report Name: Nazia Lawler Age: 78 Gender: F : 1945 Exam Date: 06/19/2024 11:37 Exam Location: [facility] Ht (in): 68 Wt (lb): 241 Ordering Physician: Marquis Ward MD Attending/Referring Phys: Transmitter Supervisor Rosa Hardy RDCS Procedure CPT: Indications: eval for chf Cardiac Hx: Technical Quality: Very technically difficult study Contrast 1: Definity Total Dose (mL): 2 Contrast 2: Total Dose (mL): MEASUREMENTS (Male / Female) Normal Values 2D ECHO LV Diastolic Diameter PLAX 4.3 cm 4.2 - 5.9 / 3.9 - 5.3 cm LV Systolic Diameter PLAX 3.1 cm IVS Diastolic Thickness 1.1 cm 0.6 - 1.0 / 0.6 - 0.9 cm LVPW Diastolic Thickness 1.4 cm 0.6 - 1.0 / 0.6 - 0.9 cm LV Relative Wall Thickness 0.6 RV Internal Dim ED PLAX 3.4 cm LVOT Diameter 2.3 cm LA Systolic Diameter LX 4.1 cm 3.0 - 4.0 / 2.7 - 3.8 cm LA Volume 50.7 cm??? 18 - 58 / 22 - 52 cm??? LA Volume Index 21.7 cm???/m??? 16 - 28 cm???/m??? M-MODE Aortic Root Diameter MM 3.6 cm AV Cusp Separation MM 2.2 cm DOPPLER AV Peak Velocity 191.7 cm/s AV Peak Gradient 14.7 mmHg AV Mean Velocity 153.4 cm/s AV Mean Gradient 11.2 mmHg AV Velocity Time Integral 42.3 cm LVOT Peak Velocity 219.2 cm/s LVOT Peak Gradient 19.2 mmHg LVOT Velocity Time Integral 42.9 cm LVOT Stroke Volume 184.2 cm??? LVOT Stroke Volume Index 83.2 ml/m??? LVOT Cardiac Index 8202.8 cm???/min???m??? AV Area Cont Eq vti 4.3 cm??? AV Area Cont Eq pk 4.9 cm??? TR Peak Velocity 277.2 cm/s TR Peak Gradient 30.7 mmHg Right Ventricular Systolic Press 35.6 mmHg FINDINGS Left Ventricle Left ventricular ejection fraction is estimated at 45-50 %. Left ventricular cavity size normal. Mildly increased septal wall thickness. Moderately increased posterior wall thickness. No obvious regional wall motion abnormalities. Right Ventricle Mild right ventricular dilatation. Mild pulmonary hypertension. Right Atrium Right atrium not well visualized. Left Atrium Mildly increased left atrial diameter. Mildly increased left atrial area. Mitral Valve Mild thickening/calcification of the anterior mitral valve leaflet. Moderate thickening/calcification of the posterior mitral valve leaflet. Mild mitral regurgitation. Aortic Valve Aortic valve sclerosis. Mild aortic stenosis with a peak gradient of 15 mmHg and a mean gradient of 11 mmHg. Tricuspid Valve Tricuspid valve not well visualized. Mild tricuspid regurgitation. Pulmonic Valve Pulmonic valve not well visualized. Pericardium No pericardial effusion. Aorta Normal size aortic root and proximal ascending aorta. CONCLUSIONS Mild LV dysfunction Mild mitral regurgitation with mitral annular calcification Mild aortic stenosis Previewed by: Dr. Bright Martínez MD (Electronically Signed) Final Date: 19 June 2024 12:23
[2024-06-19 13:47] LABS: Glucose,Whole Blood 347 mg/dL (70-110)
--- NOTE | 2024-06-19 14:26 | P.CNPUL ---
History of Present Illness Consult date: 06/19/24 Requesting physician: Joaquín Mckinnon Reason for consult: hypoxemia, abnormal CXR/CT Chief complaint: Shortness of breath, cough, fever History of present illness: This is a 78-year-old female patient with advanced Alzheimer's dementia and resides in a local long term. She also has a history of hypertension, obstructive sleep apnea utilizing CPAP, gout. She was brought into the emergen cy room yesterday after being found with altered mental status, cough, congestion and fever. She is normally A and O x 1. Chest x-ray revealed cardiomegaly with mild pulmonary vascular congestion. EKG reveals atrial fibrillation with a rapid ventricular response. Echocardiogram reveals mildly impaired left ventricular systolic function with ejection fraction 45 to 50%. Mild mitral regurgitation. Mild aortic stenosis. CT scan of the abdomen revealed mild right hydronephrosis without obstructing calculus. Nonobstructing left renal calculus. Regions of dilated gas and stool-filled colon without focal transition point. Additional rectal fecaloma without surrounding inflammatory changes. Correlate for colonic ileus. Fluid and gas-filled stomach without focal transition point. Correlate for gastric ileus. Bilateral lower lobe patchy consolidation and atelectasis. White count 20.0. Hemoglobin 14.7. Platelets 201. Sodium 131. Potassium 4.1. Bicarb 21. BUN 43. Creatinine 0.75. Glucose 312. Opponent 0.057, 0.120, 0.098. BNP level 958. Procalcitonin negative at 0.13. Viral screen negative. She is seen today in the emergency department. She is obtunded. Difficult to arouse. On BiPAP 14/6 and 50% FiO2. Temperature was 102.7 on arrival. Currently 100.9. Receiving Tylenol the past 24 hours. She was initiated on cefepime, azithromycin and vancomycin. is at the bedside. Review of Systems ROS unobtainable: due to mental status Past Medical History Past Medical History: Dementia, GERD/Reflux, Hypertension, Pneumonia, Sleep Apnea/CPAP/BIPAP Additional Past Medical History / Comment(s): hx migraines,sjogrens,hx pneumonia, hx kidney stones History of Any Multi-Drug Resistant Organisms: MRSA Date of last positivie culture/infection: 06/02/24 MDRO Source:: BUTTOCK, urine Past Surgical History: Section, Cholecystectomy, Hysterectomy, Joint Replacement Additional Past Surgical History / Comment(s): ariana knee and rt shoulder replacement, cataracts, surgery on left thumb and wrist, Past Anesthesia/Blood Transfusion Reactions: Previous Problems w/ Anesthesia Additional Past Anesthesia/Blood Transfusion Reaction / Comment(s): "almost aspirated" Past Psychological History: Anxiety Smoking Status: Unknown if ever smoked Past Alcohol Use History: None Reported Past Drug Use History: None Reported - Past Family History Father Family Medical History: Cancer Additional Family Medical History / Comment(s): colon cancer Medications and Allergies Home Medications Medication Instructions Recorded Confirmed Type Atorvastatin [Lipitor] 40 mg PO HS@2100 06/28/14 06/18/24 History allopurinoL [Zyloprim] 300 mg PO DAILY@0800 06/28/14 06/18/24 History Acetaminophen Tab [Tylenol] 500 mg PO Q4H PRN 02/17/24 06/18/24 History Budesonide [Budesonide ER] 9 mg PO DAILY@0800 02/17/24 06/18/24 History Escitalopram [Lexapro] 10 mg PO DAILY@0800 02/17/24 06/18/24 History Elias Packet 1 packet PO BID@0800,1700 02/17/24 06/18/24 History Magnesium Oxide [Mag-Ox] 400 mg PO DAILY@0800 02/17/24 06/18/24 History Metoprolol Succinate (ER) [Toprol 50 mg PO BID@0800,1700 02/17/24 06/18/24 History XL] Spironolactone 50 mg PO DAILY@0800 02/17/24 06/18/24 History Tolterodine ER [Detrol LA] 2 mg PO DAILY@0800 02/17/24 06/18/24 History metFORMIN HCL [Glucophage] 1,000 mg PO BID@0800,1700 02/17/24 06/18/24 History Glucerna Shake 1 can PO W/LUNCH 06/18/24 06/18/24 History Magnesium Hydroxide [Milk of 7,200 mg PO Q48H PRN 06/18/24 06/18/24 History Magnesia Concentrate] Na Phos,M-B/Na Phos,Di-Ba [Fleet 133 ml RECTAL DAILY PRN 06/18/24 06/18/24 History Adult] Sennosides [Senokot] 8.6 mg PO BID@0800,1700 06/18/24 06/18/24 History amLODIPine [Norvasc] 5 mg PO DAILY@0800 06/18/24 06/18/24 History bisacodyL [Dulcolax] 10 mg RECTAL DAILY PRN 06/18/24 06/18/24 History Allergies Allergy/AdvReac Type Severity Reaction Status Date / Time No Known Allergies Allergy Verified 02/17/24 14:10 Physical Exam Vitals: Vital Signs Temp Pulse Resp BP Pulse Ox FiO2 06/19/24 14:00 99.9 F H 108 H 23 134/76 96 06/19/24 12:30 99.3 F 96 22 127/89 98 06/19/24 11:30 94 06/19/24 11:24 50 06/19/24 11:21 96 06/19/24 10:11 100.6 F H 120 H 26 H 157/98 96 06/19/24 08:45 100.9 F H 127 H 30 H 111/65 95 06/19/24 08:03 148 H 06/19/24 08:00 101.1 F H 112 H 28 H 147/92 96 06/19/24 07:55 50 06/19/24 07:52 132 H 06/19/24 06:41 102.0 F H 115 H 34 H 147/91 95 06/19/24 05:39 105 H 31 H 128/83 97 06/19/24 05:28 101.8 F H 147 H 32 H 136/105 97 06/19/24 04:51 139 H 32 H 06/19/24 04:36 134 H 30 H 50 06/19/24 03:30 135 H 34 H 135/82 96 06/19/24 02:48 101.7 F H 113 H 20 127/88 97 06/19/24 01:00 101 F H 111 H 30 H 138/92 96 06/19/24 00:02 112 H 30 H 06/18/24 23:51 110 H 30 H 50 06/18/24 23:00 101.5 F H 111 H 32 H 151/99 96 06/18/24 22:00 102.2 F H 116 H 31 H 141/70 96 06/18/24 21:30 102.4 F H 123 H 33 H 127/87 95 06/18/24 20:30 102.9 F H 135 H 32 H 131/83 95 06/18/24 19:52 113 H 36 H 06/18/24 19:42 111 H 31 H 06/18/24 19:40 50 06/18/24 19:30 103.3 F H 138 H 34 H 142/75 97 06/18/24 18:59 118 H 148/82 98 06/18/24 18:00 104.2 F H 100 31 H 143/86 98 06/18/24 16:07 102.5 F H 118 H 132/88 97 06/18/24 16:05 138 H 38 H 06/18/24 16:03 50 06/18/24 16:00 102.5 F H 129 H 24 132/88 95 06/18/24 15:00 134 H 41 H 131/97 95 Intake and Output 06/18/24 06/19/24 06/19/24 22:59 06:59 14:59 Output Total 150 300 Balance -150 -300 Output: Urine 150 300 Uretheral (Gibbs) 300 GENERAL EXAM: Tended morbidly obese 78-year-old female, on BiPAP, in no apparent distress. HEAD: Normocephalic. EYES: Normal reaction of pupils, equal size. NOSE: Clear with pink turbinates. THROAT: No erythema or exudates. NECK: No masses, no JVD. CHEST: No chest wall deformity. LUNGS: Equal air entry with scattered rhonchi. CVS: S1 and S2 normal with no audible murmur, regular rhythm. ABDOMEN: No hepatosplenomegaly, normal bowel sounds, no guarding or rigidity. SPINE: No scoliosis or deformity SKIN: No rashes. Mottling of the lower extremity CENTRAL NERVOUS SYSTEM: No focal deficits, tone is normal in all 4 extremities. EXTREMITIES: Changes of chronic venous stasis. There is 2+ peripheral edema. No clubbing, no cyanosis. Peripheral pulses are intact. Results - Laboratory Findings CBC and BMP: 06/19/24 10:56 06/19/24 00:44 ABG ABG pH 7.45 (7.35-7.45) 06/18/24 14:51 ABG pCO2 30 mmHg (35-45) L 06/18/24 14:51 ABG pO2 82 mmHg (83-108) L 06/18/24 14:51 ABG O2 Saturation 96.8 % (94-97) 06/18/24 14:51 PT/INR, D-dimer PT 12.0 sec (10.0-12.5) 06/18/24 08:35 INR 1.1 (<1.2) 06/18/24 08:35 Abnormal lab findings: Abnormal Labs 06/18/24 06/18/24 06/18/24 08:35 08:35 08:35 WBC 19.9 H Hgb 16.2 H Hct 46.8 H Neutrophils # 17.5 H Lymphocytes # 0.8 L Monocytes # 1.2 H ABG pCO2 ABG pO2 Sodium 131 L Chloride 95 L Carbon Dioxide BUN 37 H Glucose 283 H POC Glucose (mg/dL) Plasma Lactic Acid Juancarlos AST 38 H Troponin I 0.057 H* Total Protein Albumin Urine Protein Urine Ketones Urine Blood Urine RBC Urine WBC Urine Bacteria Urine Mucus 06/18/24 06/18/24 06/18/24 09:02 09:58 10:59 WBC Hgb Hct Neutrophils # Lymphocytes # Monocytes # ABG pCO2 ABG pO2 Sodium Chloride Carbon Dioxide BUN Glucose POC Glucose (mg/dL) 279 H Plasma Lactic Acid Juancarlos 4.6 H* AST Troponin I Total Protein Albumin Urine Protein 1+ H Urine Ketones 1+ H Urine Blood Moderate H Urine RBC 26 H Urine WBC 7 H Urine Bacteria Rare H Urine Mucus Occasional H 06/18/24 06/18/24 06/18/24 12:08 12:52 14:27 WBC Hgb Hct Neutrophils # Lymphocytes # Monocytes # ABG pCO2 ABG pO2 Sodium Chloride Carbon Dioxide BUN Glucose POC Glucose (mg/dL) 316 H Plasma Lactic Acid Juancarlos 6.2 H* AST Troponin I 0.120 H* Total Protein Albumin Urine Protein Urine Ketones Urine Blood Urine RBC Urine WBC Urine Bacteria Urine Mucus 06/18/24 06/18/24 06/18/24 14:51 15:51 16:43 WBC Hgb Hct Neutrophils # Lymphocytes # Monocytes # ABG pCO2 30 L ABG pO2 82 L Sodium Chloride Carbon Dioxide BUN Glucose POC Glucose (mg/dL) 346 H Plasma Lactic Acid Juancarlos AST Troponin I 0.098 H* Total Protein Albumin Urine Protein Urine Ketones Urine Blood Urine RBC Urine WBC Urine Bacteria Urine Mucus 06/18/24 06/18/24 06/19/24 18:14 21:50 00:44 WBC 15.0 H Hgb Hct Neutrophils # 13.5 H Lymphocytes # 0.7 L Monocytes # ABG pCO2 ABG pO2 Sodium Chloride Carbon Dioxide BUN Glucose POC Glucose (mg/dL) Plasma Lactic Acid Juancarlos 4.3 H* 2.8 H* AST Troponin I Total Protein Albumin Urine Protein Urine Ketones Urine Blood Urine RBC Urine WBC Urine Bacteria Urine Mucus 06/19/24 06/19/24 06/19/24 00:44 00:52 03:42 WBC Hgb Hct Neutrophils # Lymphocytes # Monocytes # ABG pCO2 ABG pO2 Sodium 131 L Chloride Carbon Dioxide 21 L BUN 43 H Glucose 312 H POC Glucose (mg/dL) Plasma Lactic Acid Juancarlos 2.7 H* 2.9 H* AST 43 H Troponin I Total Protein 5.4 L Albumin 3.0 L Urine Protein Urine Ketones Urine Blood Urine RBC Urine WBC Urine Bacteria Urine Mucus 06/19/24 06/19/24 06/19/24 07:04 10:56 13:44 WBC 20.0 H Hgb Hct Neutrophils # 17.7 H Lymphocytes # 0.8 L Monocytes # 1.1 H ABG pCO2 ABG pO2 Sodium Chloride Carbon Dioxide BUN Glucose POC Glucose (mg/dL) 311 H 347 H Plasma Lactic Acid Juancarlos AST Troponin I Total Protein Albumin Urine Protein Urine Ketones Urine Blood Urine RBC Urine WBC Urine Bacteria Urine Mucus - Diagnostic Findings Chest x-ray: image reviewed Assessment and Plan Assessment: Acute hypoxic respiratory failure secondary to suspected aspiration pneumonia. Procalcitonin negative Febrile illness secondary to above Leukocytosis secondary to above Abdominal distention and probable ileus Atrial fibrillation with a rapid ventricular response, initiated on Cardizem and heparin drips Advanced Alzheimer's dementia, long term resident Morbid obesity Obstructive sleep apnea on CPAP Hypertension Diabetes mellitus, type II History of gout Hyperlipidemia Poor overall functional performance based on the above-mentioned multiple comorbidities Plan: The patient was seen and evaluated Chest x-ray, labs and medications reviewed Place a nasogastric tube for abdominal distention Continue antibiotics for now Continue BiPAP support Currently on a heparin drip Currently on Cardizem drip Prognosis is poor DNR CODE STATUS is interested in hospice/comfort care Hospice consult placed I have personally seen and examined the patient, performed the documentation and the assessment and plan as written. Number of minutes spent on the visit: 20 Dictation was produced using [employer] dictation software. Please excuse any grammatical, word or spelling errors.
[2024-06-19 14:46] LABS: INR 1.4 (<1.2); Partial Thromboplastin Time 42.2 sec (22.0-30.0); Prothrombin Time 14.4 sec (10.0-12.5)
[2024-06-19 21:07] LABS: Glucose,Whole Blood 397 mg/dL (70-110)
[2024-06-19 22:39] LABS: Glucose,Whole Blood 371 mg/dL (70-110)
[2024-06-20] MEDS: metroNIDAZOLE-NS PMX 500 MG in SALINE 1 100ML.BAG IVPB SCH (00:04)
[2024-06-20] MEDS: SODIUM CHLORIDE 0.9% 1,000 ML IV ONE (00:23)
[2024-06-20 01:42] LABS: Glucose,Whole Blood 270 mg/dL (70-110)
[2024-06-20 03:56] VITALS: RESP 40
[2024-06-20 05:17] VITALS: TEMP 99.3
[2024-06-20 05:27] LABS: Basophils # (A) 0.1 k/uL (0-0.2); Basophils % (A) 0 %; Eosinophils % (A) 0 %; HCT 28.4 % (34.0-46.0); Lymphocytes # (A) 1.1 k/uL (1.0-4.8); Lymphocytes % (A) 6 %; MCH 31.5 pg (25.0-35.0); MCHC 32.5 g/dL (31.0-37.0); MCV 96.7 fL (80.0-100.0); Mean Platelet Volume 8.9; Monocytes % (A) 5 %; Neutrophils # (A) 16.4 k/uL (1.3-7.7); Neutrophils % (A) 87 %; Platelet Count 239 k/uL (150-450); RBC 2.94 m/uL (3.80-5.40); RDW 13.7 % (11.5-15.5); WBC 18.8 k/uL (3.8-10.6)
[2024-06-20 05:29] LABS: HGB 9.3 gm/dL (11.4-16.0)
[2024-06-20 05:35] VITALS: PULSE 93
[2024-06-20 05:37] LABS: INR 1.9 (<1.2); Prothrombin Time 19.2 sec (10.0-12.5)
[2024-06-20 05:41] VITALS: BP 69/54
[2024-06-20 05:46] LABS: AST 369 U/L (14-36); African American GFR (CKD) 48 (>60 ml/min/1.73 sqM); Albumin 2.3 g/dL (3.5-5.0); Alkaline Phosphatase 110 U/L (38-126); Anion Gap 15 mmol/L; Bilirubin, Delta 0.2 mg/dL (0.0-0.2); Bilirubin,Unconjugated 0.5 mg/dL (0.0-1.1); Blood Urea Nitrogen 64 mg/dL (7-17); Calcium 8.2 mg/dL (8.4-10.2); Carbon Dioxide 14 mmol/L (22-30); Chloride 107 mmol/L (98-107); Glucose 224 mg/dL (74-99); Magnesium 1.9 mg/dL (1.6-2.3); Non-African American GFR(CKD) 41 (>60 ml/min/1.73 sqM); Potassium 4.4 mmol/L (3.5-5.1); Sodium 136 mmol/L (137-145); Total Bilirubin 0.7 mg/dL (0.2-1.3); Total Protein 4.6 g/dL (6.3-8.2)
[2024-06-20 05:47] LABS: Partial Thromboplastin Time 118.4 sec (22.0-30.0)
[2024-06-20 05:51] LABS: Glucose,Whole Blood 264 mg/dL (70-110)
[2024-06-20 05:52] LABS: ALT 265 U/L (4-34)
[2024-06-20] MEDS ORDERED: SODIUM CHLORIDE 0.9% 500 ML 500 ML IV ONE (05:57)
--- NOTE | 2024-06-20 06:59 | P.CONS ---
History of Present Illness - Reason for Consult Consult date: 06/19/24 Severe sepsis Requesting physician: Leonardo Beaulieu - Chief Complaint Mental status changes respiratory distress x 1 day - History of Present Illness Patient is a 78-year-old female with a past medical history significant for hypertension pneumonia sleep apnea reflux and dementia [facility] resident patient has been brought to the hospital yesterday morning for evaluation of cough fever and mental status changes, family symptom has been going on for a day or 2 before the patient has been sent to the hospital patient did have labored breathing and hypoxemia requiring placement on the BiPAP also noted to have significant abdominal distention for which NG has been placed with significant amount of output on presentation to the hospital patient did have a temperature of 102.7 degrees for night patient was tachycardic hypotensive and hypoxic patient did have white count of 19.9 on presentation to the hospital with a left shift creatinine has been normal lactic acid is elevated AST is mildly elevated ALT normal urine has been mildly positive urine drug screen was negative influenza RSV COVID testing has been negative blood pressure improved currently pending patient did have a chest x-ray cardiomegaly mild pulm vascular congestion did have a CT of the chest abdominal pelvis which did show bilateral lower lobe patchy consolidative opacity mild right hydronephrosis rectal fecaloma dilated gas and stool-filled colon also with stomach distention patient has been started on vancomycin and cefepime Zithromax infectious disease was consulted today concerning for severe sepsis, most information has been obtained from review of the chart and talking to the room of the bedside as the patient was not able to provide any history Review of Systems Positive points has been mentioned in HPI complete review could not be obtained because of his underlying mental status Past Medical History Past Medical History: Dementia, GERD/Reflux, Hypertension, Pneumonia, Sleep Apnea/CPAP/BIPAP Additional Past Medical History / Comment(s): hx migraines,sjogrens,hx pn eumonia, hx kidney stones History of Any Multi-Drug Resistant Organisms: MRSA Year Discovered:: 06/02/24 MDRO Source:: BUTTOCK, urine Past Surgical History: Section, Cholecystectomy, Hysterectomy, Joint Replacement Additional Past Surgical History / Comment(s): ariana knee and rt shoulder replacement, cataracts, surgery on left thumb and wrist, Past Anesthesia/Blood Transfusion Reactions: Previous Problems w/ Anesthesia Additional Past Anesthesia/Blood Transfusion Reaction / Comm: "almost aspirated" Past Psychological History: Anxiety Smoking Status: Unknown if ever smoked Past Alcohol Use History: None Reported Past Drug Use History: None Reported - Past Family History Father Family Medical History: Cancer Additional Family Medical History / Comment(s): colon cancer Medications and Allergies Home Medications Medication Instructions Recorded Confirmed Type Atorvastatin [Lipitor] 40 mg PO HS@2100 06/28/14 06/18/24 History allopurinoL [Zyloprim] 300 mg PO DAILY@0800 06/28/14 06/18/24 History Acetaminophen Tab [Tylenol] 500 mg PO Q4H PRN 02/17/24 06/18/24 History Budesonide [Budesonide ER] 9 mg PO DAILY@0800 02/17/24 06/18/24 History Escitalopram [Lexapro] 10 mg PO DAILY@0800 02/17/24 06/18/24 History Elias Packet 1 packet PO BID@0800,1700 02/17/24 06/18/24 History Magnesium Oxide [Mag-Ox] 400 mg PO DAILY@0800 02/17/24 06/18/24 History Metoprolol Succinate (ER) [Toprol 50 mg PO BID@0800,1700 02/17/24 06/18/24 History XL] Spironolactone 50 mg PO DAILY@0800 02/17/24 06/18/24 History Tolterodine ER [Detrol LA] 2 mg PO DAILY@0800 02/17/24 06/18/24 History metFORMIN HCL [Glucophage] 1,000 mg PO BID@0800,1700 02/17/24 06/18/24 History Glucerna Shake 1 can PO W/LUNCH 06/18/24 06/18/24 History Magnesium Hydroxide [Milk of 7,200 mg PO Q48H PRN 06/18/24 06/18/24 History Magnesia Concentrate] Na Phos,M-B/Na Phos,Di-Ba [Fleet 133 ml RECTAL DAILY PRN 06/18/24 06/18/24 History Adult] Sennosides [Senokot] 8.6 mg PO BID@0800,1700 06/18/24 06/18/24 History amLODIPine [Norvasc] 5 mg PO DAILY@0800 06/18/24 06/18/24 History bisacodyL [Dulcolax] 10 mg RECTAL DAILY PRN 06/18/24 06/18/24 History Allergies Allergy/AdvReac Type Severity Reaction Status Date / Time No Known Allergies Allergy Verified 02/17/24 14:10 Physical Exam Vitals: Vital Signs Temp Pulse Resp BP Pulse Ox FiO2 06/19/24 12:30 99.3 F 96 22 127/89 98 06/19/24 11:30 94 06/19/24 11:24 50 06/19/24 11:21 96 06/19/24 10:11 100.6 F H 120 H 26 H 157/98 96 06/19/24 08:45 100.9 F H 127 H 30 H 111/65 95 06/19/24 08:03 148 H 06/19/24 08:00 101.1 F H 112 H 28 H 147/92 96 06/19/24 07:55 50 06/19/24 07:52 132 H 06/19/24 06:41 102.0 F H 115 H 34 H 147/91 95 06/19/24 05:39 105 H 31 H 128/83 97 06/19/24 05:28 101.8 F H 147 H 32 H 136/105 97 06/19/24 04:51 139 H 32 H 06/19/24 04:36 134 H 30 H 50 06/19/24 03:30 135 H 34 H 135/82 96 06/19/24 02:48 101.7 F H 113 H 20 127/88 97 06/19/24 01:00 101 F H 111 H 30 H 138/92 96 06/19/24 00:02 112 H 30 H 06/18/24 23:51 110 H 30 H 50 06/18/24 23:00 101.5 F H 111 H 32 H 151/99 96 06/18/24 22:00 102.2 F H 116 H 31 H 141/70 96 06/18/24 21:30 102.4 F H 123 H 33 H 127/87 95 06/18/24 20:30 102.9 F H 135 H 32 H 131/83 95 06/18/24 19:52 113 H 36 H 06/18/24 19:42 111 H 31 H 06/18/24 19:40 50 06/18/24 19:30 103.3 F H 138 H 34 H 142/75 97 06/18/24 18:59 118 H 148/82 98 06/18/24 18:00 104.2 F H 100 31 H 143/86 98 06/18/24 16:07 102.5 F H 118 H 132/88 97 06/18/24 16:05 138 H 38 H 06/18/24 16:03 50 06/18/24 16:00 102.5 F H 129 H 24 132/88 95 06/18/24 15:00 134 H 41 H 131/97 95 06/18/24 13:56 102.3 F H 116 H 27 H 147/94 96 06/18/24 13:55 40 06/18/24 13:41 40 06/18/24 13:38 118 H 40 H 06/18/24 13:29 120 H 40 H 06/18/24 13:00 121 H 44 H 119/83 94 L Intake and Output 06/18/24 06/19/24 06/19/24 22:59 06:59 14:59 Output Total 150 300 Balance -150 -300 Output: Urine 150 300 Uretheral (Gibbs) 300 GENERAL DESCRIPTION: Elderly female lying in bed, no distress. Mild respiratory distress on BiPAP HEENT: Shows Pallor , no scleral icterus. NECK: Trachea central, no thyromegaly. LUNGS: Unlabored breathing. Coarse breath sounds bilaterally HEART: S1, S2, regular rate and rhythm. No loud murmur ABDOMEN: Soft, significant abdominal distention mild tenderness EXTREMITIES: Swelling to the legs but no redness SKIN: No rash, no masses palpable. NEUROLOGICAL: The patient is lethargic orientation could not be determined Results CBC & Chem 7: 06/20/24 04:41 06/20/24 04:41 Labs: Abnormal Lab Results - Last 24 Hours (Table) 06/18/24 06/18/24 06/18/24 Range/Units 12:52 14:27 14:51 WBC (3.8-10.6) k/uL Neutrophils # (1.3-7.7) k/uL Lymphocytes # (1.0-4.8) k/uL Monocytes # (0-1.0) k/uL ABG pCO2 30 L (35-45) mmHg ABG pO2 82 L (83-108) mmHg Sodium (137-145) mmol/L Carbon Dioxide (22-30) mmol/L BUN (7-17) mg/dL Glucose (74-99) mg/dL POC Glucose (mg/dL) (70-110) mg/dL Plasma Lactic Acid Juancarlos 6.2 H* (0.7-2.0) mmol/L AST (14-36) U/L Troponin I 0.120 H* (0.000-0.034) ng/mL Total Protein (6.3-8.2) g/dL Albumin (3.5-5.0) g/dL 06/18/24 06/18/24 06/18/24 Range/Units 15:51 16:43 18:14 WBC (3.8-10.6) k/uL Neutrophils # (1.3-7.7) k/uL Lymphocytes # (1.0-4.8) k/uL Monocytes # (0-1.0) k/uL ABG pCO2 (35-45) mmHg ABG pO2 (83-108) mmHg Sodium (137-145) mmol/L Carbon Dioxide (22-30) mmol/L BUN (7-17) mg/dL Glucose (74-99) mg/dL POC Glucose (mg/dL) 346 H (70-110) mg/dL Plasma Lactic Acid Juancarlos 4.3 H* (0.7-2.0) mmol/L AST (14-36) U/L Troponin I 0.098 H* (0.000-0.034) ng/mL Total Protein (6.3-8.2) g/dL Albumin (3.5-5.0) g/dL 06/18/24 06/19/24 06/19/24 Range/Units 21:50 00:44 00:44 WBC 15.0 H (3.8-10.6) k/uL Neutrophils # 13.5 H (1.3-7.7) k/uL Lymphocytes # 0.7 L (1.0-4.8) k/uL Monocytes # (0-1.0) k/uL ABG pCO2 (35-45) mmHg ABG pO2 (83-108) mmHg Sodium 131 L (137-145) mmol/L Carbon Dioxide 21 L (22-30) mmol/L BUN 43 H (7-17) mg/dL Glucose 312 H (74-99) mg/dL POC Glucose (mg/dL) (70-110) mg/dL Plasma Lactic Acid Juancarlos 2.8 H* (0.7-2.0) mmol/L AST 43 H (14-36) U/L Troponin I (0.000-0.034) ng/mL Total Protein 5.4 L (6.3-8.2) g/dL Albumin 3.0 L (3.5-5.0) g/dL 06/19/24 06/19/24 06/19/24 Range/Units 00:52 03:42 07:04 WBC (3.8-10.6) k/uL Neutrophils # (1.3-7.7) k/uL Lymphocytes # (1.0-4.8) k/uL Monocytes # (0-1.0) k/uL ABG pCO2 (35-45) mmHg ABG pO2 (83-108) mmHg Sodium (137-145) mmol/L Carbon Dioxide (22-30) mmol/L BUN (7-17) mg/dL Glucose (74-99) mg/dL POC Glucose (mg/dL) 311 H (70-110) mg/dL Plasma Lactic Acid Juancarlos 2.7 H* 2.9 H* (0.7-2.0) mmol/L AST (14-36) U/L Troponin I (0.000-0.034) ng/mL Total Protein (6.3-8.2) g/dL Albumin (3.5-5.0) g/dL 06/19/24 Range/Units 10:56 WBC 20.0 H (3.8-10.6) k/uL Neutrophils # 17.7 H (1.3-7.7) k/uL Lymphocytes # 0.8 L (1.0-4.8) k/uL Monocytes # 1.1 H (0-1.0) k/uL ABG pCO2 (35-45) mmHg ABG pO2 (83-108) mmHg Sodium (137-145) mmol/L Carbon Dioxide (22-30) mmol/L BUN (7-17) mg/dL Glucose (74-99) mg/dL POC Glucose (mg/dL) (70-110) mg/dL Plasma Lactic Acid Juancarlos (0.7-2.0) mmol/L AST (14-36) U/L Troponin I (0.000-0.034) ng/mL Total Protein (6.3-8.2) g/dL Albumin (3.5-5.0) g/dL Assessment and Plan (1) Pneumonia Current Visit: Yes Status: Acute Code(s): J18.9 - PNEUMONIA, UNSPECIFIED ORGANISM SNOMED Code(s): 870549159 (2) Sepsis Current Visit: Yes Status: Acute Code(s): A41.9 - SEPSIS, UNSPECIFIED ORGANISM SNOMED Code(s): 18275320 Plan: 1patient presented to hospital with severe sepsis in this patient who did have a fever tachycardia hypotension elevated white count as well as elevated lactic acid source is multifactorial in this patient with possible abdominal source and secondary spiration pneumonia and will need to cover for resistant gram- positive as well as gram-negative pathogen. 2try to obtain sputum for Gram stain and culture. 3vancomycin pharmacy to dose target trough of 15 while watching kidney function and Vanco trough closely along with cefepime however discontinue Zithromax and add Flagyl to cover for the anaerobes. Daughter at the bedside multiple question answered. We will follow on clinical condition and cultures to further adjust medication if needed Thank you for this consultation we will follow the patient along with you Dictation was produced using [employer] dictation software. please excuse any grammatical, word or spelling errors. Time with Patient: Greater than 30
[2024-06-20 07:40] LABS: Glucose,Whole Blood 321 mg/dL (70-110)
[2024-06-20] MEDS ORDERED: PHYTONADIONE 5 MG in SODIUM CHLORIDE 0.9% 50 ML IVPB STA (07:46)
[2024-06-20] MEDS ORDERED: VANCOMYCIN TROUGH DUE 1 EACH MISC MISCELLANE ONE (09:15)
--- NOTE | 2024-06-20 09:23 | P.DS ---
Providers Date of admission: 06/18/24 11:24 Expected date of discharge: 06/20/24 Attending physician: Joaquín Mckinnon Consults: 06/18/24 11:21 Consult Physician Routine Consulting Provider: [facility] Consult Reason/Comments: afib with rvr, elevated troponin Do you want consulting provider notified?: Yes Consult Physician Routine Consulting Provider: Enrico Peraza Consult Reason/Comments: hypoxic resp failure, pneumonia, sepsis Do you want consulting provider notified?: Yes 06/19/24 11:09 Consult Physician Routine Consulting Provider: Jennifer Cornejo Consult Reason/Comments: Severe sepsis Do you want consulting provider notified?: Yes 06/19/24 21:34 Consult Physician Stat Consulting Provider: Lilia Roberts Consult Reason/Comments: CT showed colonic ileus Do you want consulting provider notified?: Yes [facility] Course: #. Sepsis, severe with acute hypoxemic respiratory failure #. Lactic acidosis #. Leukocytosis #. Colonic Ileus #. Atrial fibrillation with rapid ventricular rate, new onset #. Hypertension #. Zez-xeredci-wxgsddnwb diabetes mellitus #. Dyslipidemia #. Gout #. Advanced dementia Patient prior to my physical exam today Hospital course: Patient is a 78-year-old female with past medical history significant for dementia, zuv-brwiutp-izfuklotr diabetes mellitus, history of frequent UTIs, and hypertension presented to the emergency department today for fever and dyspnea for 1 day. Initial vitals: T 102.3, [place] [id number] bpm, RR 33-41, BP 127/93, oxygen 93% on 2 L nasal cannula. Initial labs: WBC 19.9, hemoglobin 16.2, hematocrit 46.8, platelets 330, sodium 131, potassium 4.4slight hemolysis, chloride 95, CO2 23, BUN 37, creatinine 0.69, glucose 283, AST 38, ALT 24, alkaline phosphatase 44, ammonia 11, troponin X1 0.057. Viral panel negative. Initial urinalysis: 1+ protein, 1+ ketone, moderate blood, 26 RBC, 7 WBC, rare bacteria, occasional mucus. Initial chest x-ray independently interpreted: Pulmonary vascular congestion. Initial EKG independently interpreted: Atrial fibrillation with rapid ventricular rate (148 bpm), left axis deviation Patient was admitted on broad-spectrum antibiotics, underwent imaging with CT chest, abdomen, pelvis which demonstrated findings of large bowel ileus. Patient had NG tube placed. For A-fib with RVR, patient was placed on metoprolol and then escalated to Cardizem drip. Unfortunately, despite these interventions, patient's blood pressure continued to decline, associated with a drop of hemoglobin. Goals of care discussion was had with family who were amenable to hospice. Patient did pass away from complications of a septic shock from likely gastrointestinal source. Plan - Discharge Summary New Discharge Prescriptions: No Action Atorvastatin [Lipitor] 40 mg PO HS@2100 allopurinoL [Zyloprim] 300 mg PO DAILY@0800 Budesonide [Budesonide ER] 9 mg PO DAILY@0800 Magnesium Oxide [Mag-Ox] 400 mg PO DAILY@0800 metFORMIN HCL [Glucophage] 1,000 mg PO BID@0800,1700 Spironolactone 50 mg PO DAILY@0800 bisacodyL [Dulcolax] 10 mg RECTAL DAILY PRN PRN Reason: Constipation amLODIPine [Norvasc] 5 mg PO DAILY@0800 Glucerna Shake 1 can PO W/LUNCH Magnesium Hydroxide [Milk of Magnesia Concentrate] 7,200 mg PO Q48H PRN PRN Reason: Constipation Acetaminophen Tab [Tylenol] 500 mg PO Q4H PRN PRN Reason: Pain Escitalopram [Lexapro] 10 mg PO DAILY@0800 Elias Packet 1 packet PO BID@0800,1700 Metoprolol Succinate (ER) [Toprol XL] 50 mg PO BID@0800,1700 Tolterodine ER [Detrol LA] 2 mg PO DAILY@0800 Na Phos,M-B/Na Phos,Di-Ba [Fleet Adult] 133 ml RECTAL DAILY PRN PRN Reason: Constipation Sennosides [Senokot] 8.6 mg PO BID@0800,1700 Discharge Medication List Atorvastatin [Lipitor] 40 mg PO HS@2100 06/28/14 [History] allopurinoL [Zyloprim] 300 mg PO DAILY@0800 06/28/14 [History] Acetaminophen Tab [Tylenol] 500 mg PO Q4H PRN 02/17/24 [History] Budesonide [Budesonide ER] 9 mg PO DAILY@0800 02/17/24 [History] Escitalopram [Lexapro] 10 mg PO DAILY@0800 02/17/24 [History] Elias Packet 1 packet PO BID@0800,1700 02/17/24 [History] Magnesium Oxide [Mag-Ox] 400 mg PO DAILY@0802/17/24 [History] Metoprolol Succinate (ER) [Toprol XL] 50 mg PO BID@0800,1700 02/17/24 [History] Spironolactone 50 mg PO DAILY@0800 02/17/24 [History] Tolterodine ER [Detrol LA] 2 mg PO DAILY@0802/17/24 [History] metFORMIN HCL [Glucophage] 1,000 mg PO BID@0800,1700 02/17/24 [History] Glucerna Shake 1 can PO W/LUNCH 06/18/24 [History] Magnesium Hydroxide [Milk of Magnesia Concentrate] 7,200 mg PO Q48H PRN 06/18/24 [History] Na Phos,M-B/Na Phos,Di-Ba [Fleet Adult] 133 ml RECTAL DAILY PRN 06/18/24 [History] Sennosides [Senokot] 8.6 mg PO BID@0800,1700 06/18/24 [History] amLODIPine [Norvasc] 5 mg PO DAILY@0806/18/24 [History] bisacodyL [Dulcolax] 10 mg RECTAL DAILY PRN 06/18/24 [History] Follow up Appointment(s)/Referral(s): Erik Barahona DO [Primary Care Provider] - 1-2 days Discharge Disposition: - Preliminary Cause of Preliminary Cause of : Septic Shock
[2024-06-20 21:47] LABS: Glucose,Whole Blood 408 mg/dL (70-110)
== END 2024-06-20 09:19 | disposition expired | DRG 871 ==
LOC: EC 08:12 → 3SCARD 11:24 → 3NCARDOBS 22:18 → 3SCARD 22:45
PROVIDERS: ADMIT Student in an Organized Health Care Education/Training Program; ATTEND Student in an Organized Health Care Education/Training Program
PROC: 5A09457 Assistance with Respiratory Ventilation, 24-96 Consecutive Hours, Continuous Positive Airway Pressure (ICD-10-PCS; 2024-06-18)
PROC: 0D9670Z Drainage of Stomach with Drainage Device, Via Natural or Artificial Opening (ICD-10-PCS; principal; 2024-06-19)
PROC: 3E033RZ Introduction of Antiarrhythmic into Peripheral Vein, Percutaneous Approach (ICD-10-PCS; 2024-06-19)
DX: A41.9 Sepsis, unspecified organism (principal); I21.A1 Myocardial infarction type 2; J18.9 Pneumonia, unspecified organism; J96.01 Acute respiratory failure with hypoxia; R65.21 Severe sepsis with septic shock; J69.0 Pneumonitis due to inhalation of food and vomit; K56.7 Ileus, unspecified; E87.20 Acidosis, unspecified; F02.84 Dementia in other diseases classified elsewhere, unspecified severity, with anxiety; J98.11 Atelectasis; N13.2 Hydronephrosis with renal and ureteral calculous obstruction; Z66 Do not resuscitate; I48.91 Unspecified atrial fibrillation; I11.9 Hypertensive heart disease without heart failure; E11.9 Type 2 diabetes mellitus without complications; E78.5 Hyperlipidemia, unspecified; E66.01 Morbid (severe) obesity due to excess calories; M10.9 Gout, unspecified; G30.9 Alzheimer's disease, unspecified; M35.00 Sjogren syndrome, unspecified; G47.30 Sleep apnea, unspecified; K21.9 Gastro-esophageal reflux disease without esophagitis; Z68.36 Body mass index [BMI] 36.0-36.9, adult; G47.33 Obstructive sleep apnea (adult) (pediatric); Z79.84 Long term (current) use of oral hypoglycemic drugs; Z87.01 Personal history of pneumonia (recurrent); Z87.440 Personal history of urinary (tract) infections; Z87.442 Personal history of urinary calculi; Z79.899 Other long term (current) drug therapy; Z90.710 Acquired absence of both cervix and uterus; Z87.891 Personal history of nicotine dependence; Z96.611 Presence of right artificial shoulder joint
CPT/HCPCS: 36415; 36600; 71046; 71260; 74177; 80048; 80053; 80076; 80306; 80320; 81001; 82140; 82805; 83605; 83735; 83880; 84145; 84484; 85025; 85610; 85730; 87040; 87070; 87449; 87636; 93005; 93306; 94640; 94660; 96365; 96366; 96367; 96368; 96372; 96375; 96376; 99291